=== PATIENT | female | born 1965 | race Caucasian/White ===

== ENCOUNTER 2017-05-06 10:00 | Outpatient (RCR) | payer BC, SELFPAY ==
--- NOTE | 2017-04-05 09:59 | HP.PTEVAL ---
Patient's Visit Information JUNIOR CONTE is a 52 year old F referred to Physical Therapy by Adan GRAHAM with a diagnosis of Trap Strain and Neuritis. Date of Evaluation: 04/05/17 Physical Therapist: Brooklyn Goins - Visit Plan Frequency: 2x /Week Duration: 4 Weeks Plan: Focus on posture and modalities - Subjective Subjective: Patient reports a week before new years the left arm started to ache- not able to stop the ache. Went to the MD who gave her exercises which made them worse. The pain is not as severe. When she uses the arm it goes numb- now the first finger is numb all the time. He pressed and she could feel it in the exact spot. So he sent her to therapy. Her symptoms now- arm still aches and is unable to sleep on the left side. Eases: pain medication, putting her hand behind her back, heating pad. Numbness is in the first finger but when she is more active (typing) the thumb and tingling in the hand. 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 Agg: computer, activity. No pain in the shoulder or neck area. History of neck problems- chronic stiff neck- went to a massage therapist who was able to work it out and she has not had the problems since. She also saw a chiropractor. Took x-rays who thought she had a bad curve of the spine. Does not have recent x-rays of the neck. No injections or medications prescribed for the neck. no symptoms on the right side. Right hand dominate. Sleeping: side- likes to sleep on her back but is unable to breathe so she moves to the other side. She is signed up from the [employer] program and plans to start. PMHx: prediabetic, GERD. Meds: Pantoprazole, Tramadol as needed, Naproxen, Progesterone. - Objective Posture: FH, RS, Increased kyphosis- can not correct even with verbal cueing. Palpation: significant tightness throughout upper trap, cervical paraspinals and medial border of the scapula. ROM: WNL in all planes. Strength: Cervical: 4/5 isometric, Shoulder: 4+/5, Scap: fair minus, Elbow: 5/5, Wrist: 4/5, Banking Teacher: Left: 60,65,60 Right: 80,85,70. Special Test: cervical distraction: positive - Goals Goal 1:: Patient will be I with HEP and progression Goal Time Frame: 4-6 Weeks Goal 2:: Patient will maintain proper posture t/o tx session to demo increased scap s/s Goal Time Frame: 4-6 Weeks Goal 3:: Patient will report no N/T for 1 week Goal Time Frame: 4-6 Weeks - Rehabilitation Potential Physical Therapy Diagnosis: Patient presents with hypomobility- she has poor posture leading to increased pain and numbness/tingling Rehabilitation Potential: Fair - Anticipated Interventions Patient/Client Instruction: Educate patient on: Benefits of Fitness Program For the Purpose of:: To improve performance and independence with ADL's Therapeutic Exercise to Include: Strength training, Endurance training, Body mechanics, Postural training, Scapular Strength/Stabilization For the Purpose of:: To improve muscle performance and motor function TENS: Yes Cryotherapy (ice pack, ice massage): Yes Thermo therapy (hot pack): Yes Ultrasound (thermal/non thermal): Yes For the Purpose of:: To decrease pain Thank you for the opportunity to evaluate your patient. For Medicare and Medicare HMO plans, please review the plan of care and approve it. It will need to be FAXED BACK to us at [phone] for Medicare purposes. Please let me know if there are questions or concerns regarding this plan of care. Physician Signature: Date:
--- NOTE | 2017-05-06 10:31 | HP.PTDCSUM_ITS ---
HP - PT D/C Summary It has been my pleasure to treat JUNIOR CONTE under orders from DR.CRANNE Shilpa for the diagnosis of Trap Strain and Neuritis for a total of 6 visit(s). Discharge Date: Please see the following information for a summary of their discharge status. - Subjective Subjective: Patient reports that she is getting better. She has no pain down the arm and the N/T is completely gone. She feels that she will always have to be aware of her posture. - Overall Improvement % Improvement: 90 - Objective Objective/Function: Posture: good throughout. ROM: WNL in all planes. Strength : Shoulder: 5/5 throughout Scap: fair plus - Goals Goal 1:: Patient will be I with HEP and progression Goal Progress: Goal Met Goal 2:: Patient will maintain proper posture t/o tx session to demo increased scap s/s Goal Progress: Goal Met Goal 3:: Patient will report no N/T for 1 week Goal Progress: Goal Met - Plan Plan: Discharge to HEP - D/C Information If there are questions or concerns regarding this patient's physical therapy, please feel free to call me at [phone]. Thank you for the referral of this patient. Sincerely, Brooklyn Goins
== END 2017-05-06 19:00 | disposition home or self-care (01) ==
LOC: PT 10:00
PROVIDERS: Family Provider Family Medicine; PCP Family Medicine; Visit Provider Family Medicine
DX: S46.812D Strain of other muscles, fascia and tendons at shoulder and upper arm level, left arm, subsequent encounter (principal); G56.30 Lesion of radial nerve, unspecified upper limb
CPT/HCPCS: 97012; 97035; 97110; 97161; 97530

== ENCOUNTER 2017-05-14 16:30 | Outpatient (RCR) | payer BC, SELFPAY | END 2017-05-25 23:59 | LOC: NS 16:30 | PROVIDERS: Family Provider Family Medicine; PCP Family Medicine; Visit Provider Family Medicine | DX: E66.01 Morbid (severe) obesity due to excess calories (principal); Z68.43 Body mass index [BMI] 50.0-59.9, adult; Z71.3 Dietary counseling and surveillance | CPT/HCPCS: 97802; 97803 ==

== ENCOUNTER 2017-06-19 13:00 | Outpatient (RCR) | payer BC, SELFPAY | END 2017-06-24 23:59 | LOC: NS 13:00 | PROVIDERS: Family Provider Family Medicine; PCP Family Medicine; Visit Provider Family Medicine | DX: E66.01 Morbid (severe) obesity due to excess calories (principal); Z68.43 Body mass index [BMI] 50.0-59.9, adult; Z71.3 Dietary counseling and surveillance | CPT/HCPCS: 97803 ==

== ENCOUNTER 2017-06-24 07:39 | Day surgery (SDC) | payer BC, SELFPAY ==
[2017-06-24] VITALS (10 sets, daily range): BP systolic 81–138; BP diastolic 48–81; PULSE 62–88; RESP 16–18; TEMP 36.3–36.9; O2SAT 97–100; BMI 55.3
[2017-06-24] MEDS: Cefazolin 2 GM in 0.9% Normal Saline 100 ML IV (09:25)
[2017-06-24] MEDS: Bupiv/Epi 0.5% Mpf 30 ML Vial (09:45)
--- NOTE | 2017-06-24 09:59 | PCM.DC.ORTHO ---
Discharge Diet: No Restrictions Discharge Activity: May Not Drive May shower in (days): 3 Ice area for (Minutes): 20 - Ice area for 20 minutes each hour while awake Weight Bearing Status: Weight bearing as tolerated Keep extremity elevated above heart level: Operative Extremity Call your doctor if your incision/area has: Continuous Slow Oozing, Sudden Increased Bleeding, Increased Pain/ Swelling, Increased Redness, Foul Smelling Discharge Call your doctor if you observe: Fever of 101 or Higher, Coldness, Increased Pain, Numbness or Tingling, Change in Color Change Dressing in (Days):: 3 Remove Dressing in (days):: 3 Cleanse incision/area with: Soap & Water - after dressing removed Allergies/Adverse Reactions: Allergies Tetanus Vaccines and Toxoid [Tetanus Vaccines & Toxoid] Allergy (Verified 06/18/17 14:50) Rash codeine Adverse Reaction (Verified 06/18/17 14:50) Other HEART RACING Medications to take at Discharge Magnesium 250 mg PO DAILY 02/06/17 Multivitamin [Daily Multiple Vitamin] 1 each PO DAILY 02/06/17 Transfactor 1 tab PO DAILY 02/06/17 traMADol [Ultram (G)] 25 mg PO Q6H PRN PRN 02/06/17 Progesterone,Micronized [Prometrium] 400 mg PO QHS #60 cap 02/08/17 Pantoprazole Sodium [Protonix] 40 mg PO DAILY #30 tab 02/12/17 Naproxen [Naprosyn] 500 mg PO DAILY PRN PRN 06/18/17 Hydrocodone Bitart/Apap 5-325 [[place] 5/325] 1 - 2 tablet PO Q6H PRN PRN 7 Days #40 tablet 06/24/17 The following prescriptions were given: Hydrocodone Bitart/Apap 5-325 [[place] 5/325] 1 - 2 tablet PO Q6H PRN PRN 7 Days #40 tablet PRN Reason: Mild-Moderate (pain scale 1-5) Please Follow Up With: Jef Bloom, DO When: as scheduled
--- NOTE | 2017-06-24 10:02 | DCINST_ITS ---
Discharge Diet: No Restrictions Discharge Activity: May Not Drive May shower in (days): 3 Ice area for (Minutes): 20 - Ice area for 20 minutes each hour while awake Weight Bearing Status: Weight bearing as tolerated Keep extremity elevated above heart level: Operative Extremity Call your doctor if your incision/area has: Continuous Slow Oozing, Sudden Increased Bleeding, Increased Pain/ Swelling, Increased Redness, Foul Smelling Discharge Call your doctor if you observe: Fever of 101 or Higher, Coldness, Increased Pain, Numbness or Tingling, Change in Color Change Dressing in (Days):: 3 Remove Dressing in (days):: 3 Cleanse incision/area with: Soap & Water - after dressing removed Allergies/Adverse Reactions: Allergies Tetanus Vaccines and Toxoid [Tetanus Vaccines & Toxoid] Allergy (Verified 14:50) Rash codeine Adverse Reaction (Verified 06/18/17 14:50) Other HEART RACING Medications to take at Discharge Magnesium 250 mg PO DAILY 02/06/17 Multivitamin [Daily Multiple Vitamin] 1 each PO DAILY 02/06/17 Transfactor 1 tab PO DAILY 02/06/17 traMADol [Ultram (G)] 25 mg PO Q6H PRN PRN 02/06/17 Progesterone,Micronized [Prometrium] 400 mg PO QHS #60 cap 02/08/17 Pantoprazole Sodium [Protonix] 40 mg PO DAILY #30 tab 02/12/17 Naproxen [Naprosyn] 500 mg PO DAILY PRN PRN 06/18/17 Hydrocodone Bitart/Apap 5-325 [Peck 5/325] 1 - 2 tablet PO Q6H PRN PRN 7 Days # 40 tablet 06/24/17 The following prescriptions were given: Hydrocodone Bitart/Apap 5-325 [Peck 5/325] 1 - 2 tablet PO Q6H PRN PRN 7 Days # 40 tablet PRN Reason: Mild-Moderate (pain scale 1-5) Please Follow Up With: Jef Bloom, DO When: as scheduled
--- NOTE | 2017-06-24 10:06 | OP.PCM_ITS ---
Report of Operation Date of Procedure: 06/24/17 Pre-Operative Diagnosis: Osteoarthritis right knee Post-Operative Diagnosis: Same with posterior horn medial meniscus tear Surgery/Procedure Performed:: Diagnostic and operative arthroscopy of the right knee with partial medial meniscectomy chondroplasty medial femoral condyle Description of Surgical Findings:: Grade 3 osteoarthritis medial femoral condyle, posterior horn medial meniscus tear, grade 2 patellofemoral joint Type of Anesthesia:: Spinal Anesthesiologist: Freeman Sánchez Estimated Blood Loss (mL): 5 Fluids Replaced: See anesthesia report Description of Procedure: Indications: Patient has failed conservative measures and at this point has elected to undergo the above procedure. Procedure description: The patient was greeted in the preoperative area. The right knee was marked with surgical marker. Preoperative antibiotics were administered. The patient was then taken to the operating suite and placed in a supine position on operating room table. After adequate anesthesia was obtained and airway was secured a well-padded tourniquet was placed on patient' s affected extremity. Leg was then prepped and draped in usual sterile fashion. Surgical timeout was performed and confirmed with all present and surgery was commenced. Standard anteromedial anterolateral portals were made and a 30? arthroscope was then inserted into the knee. This revealed grade 2 changes in the undersurface of the patella. Patellar tracking is normal. I did perform chondroplasty of the undersurface of the patella. No loose bodies were noted in the medial or lateral gutters. Medial compartment was then entered which revealed grade 3 changes in the weightbearing surface of the medial femoral condyle. Abrasion chondroplasty was also performed here removing any unstable articular cartilage. Patient did have a complex large tear of the posterior horn of the medial meniscus. I did trim this removing approximately 75% of the posterior horn of medial meniscus with combination of meniscal biters as well as the shaver. This was trimmed and debrided to nice stable meniscal rim. At this point the intercondylar notch was entered which revealed normal intact ACL. Lateral compartment was then entered which revealed pristine articular cartilage and normal lateral meniscus. At this point all instruments were removed. Arthroscopic portals were closed in a standard fashion. 30 cc of 0.5% Marcaine was then injected into the knee. Well-padded nonadherent dressing was applied and secured with an Lon wrap. Tourniquet was deflated and patient was taken to the recovery room in stable condition. - Admit VTE Documentation VTE Present on Admission: No VTE Mechan Device Prophylaxis: SCD's VTE Pharm Prophylaxis ordered?: Yes
[2017-06-24] MEDS: Ketorolac 30 MG/ML Syringe IV (10:39)
== END 2017-06-24 15:14 | disposition home or self-care (01) ==
LOC: SDC 07:40 → AC 07:55
PROVIDERS: Family Provider Family Medicine; PCP Family Medicine; Visit Provider Orthopaedic Surgery
PROC: (CPT 29870; principal; 2017-06-24 09:00)
DX: M17.11 Unilateral primary osteoarthritis, right knee (principal); S83.241A Other tear of medial meniscus, current injury, right knee, initial encounter; X58.XXXA Exposure to other specified factors, initial encounter; E66.9 Obesity, unspecified; Z68.43 Body mass index [BMI] 50.0-59.9, adult; F41.9 Anxiety disorder, unspecified; R73.03 Prediabetes; K21.9 Gastro-esophageal reflux disease without esophagitis; Z79.899 Other long term (current) drug therapy
CPT/HCPCS: 01400; 29881; J7120

== ENCOUNTER → 2017-07-05 14:36 | Outpatient (CLI) | payer BC, SELFPAY ==
[2017-07-05 16:09] LABS: Estradiol 125.8 pg/mL
[2017-07-05 16:18] LABS: Progesterone Level 15.72 ng/mL (See Comment)
[2017-07-05 16:48] LABS: Hemoglobin A1c 5.9 % (4.2-6.3)
== END ==
PROVIDERS: Visit Provider Obstetrics & Gynecology
DX: N92.4 Excessive bleeding in the premenopausal period (principal); E66.01 Morbid (severe) obesity due to excess calories; N93.8 Other specified abnormal uterine and vaginal bleeding
CPT/HCPCS: 36415; 82670; 83036; 84144

== ENCOUNTER → 2017-07-17 15:16 | Outpatient (CLI) | payer BC, SELFPAY ==
--- NOTE | 2017-07-17 15:20 | US_ITS ---
STUDY: ULTRASOUND TRANSVAGINAL CLINICAL: Female, 52 years old. AUB TECHNIQUE: Transvaginal COMPARISON: 01/09/2017 FINDINGS: The uterus measures 10.2 x 5.2 x 5.4 cm. Normal uterine cervix. The endometrium measures 10 mm in thickness, and is normal in echotexture. There is no demonstrated endometrial mass. There is no demonstrated myometrial mass. Normal appearance of the cervix. The right ovary measures 2.1 x 2.2 x 1.4 cm. There is no right ovarian cyst or ovarian mass. There is no visualized right adnexal mass or complex lesion. There is normal arterial and normal venous vascularity. The left ovary is not well seen. Bilaterally there is no adnexal mass or suspicious cyst or adnexal free fluid. There is no fluid in the cul-de-sac. US/Transvaginal Non- IMPRESSION: No acute intrapelvic process is evident. Left ovary is not visible. Electronically Signed: Cl James, at 16:29 EDT Tel , Service support ,
== END ==
PROVIDERS: Family Provider Family Medicine; PCP Family Medicine; Visit Provider Obstetrics & Gynecology
DX: N93.8 Other specified abnormal uterine and vaginal bleeding (principal); N92.4 Excessive bleeding in the premenopausal period
CPT/HCPCS: 76830; 93976

== ENCOUNTER 2017-07-23 16:30 | Outpatient (RCR) | payer BC, SELFPAY ==
--- NOTE | 2017-07-01 09:43 | HP.PTEVAL_ITS ---
Patient's Visit Information JUNIOR CONTE is a 52 year old F referred to Physical Therapy by Jef Bloom DO with a diagnosis of Right Knee Scope. Date of Evaluation: 07/01/17 Physical Therapist: Brooklyn Goins - Visit Plan Frequency: 2x /Week Duration: 3 Weeks Plan: Focus on LE and core s/s with functional mobility- Knee Scope 06/25/17 - Subjective Subjective: Patient reports that she has a knee scope 06/25- felt really good and then the block wore off and she has been in a lot of pain. Has not had to take pain meds for the last 2 days. Pain is located in the right knee- Mostly dull and achy. She has been up and moving. Worst: 5/10 Agg: walking on it a lot Eases: ice, elevation, rest. Best: 0/10. No radiating pain- No N/T. Sleep: a little bit disturbed- rolling back and forth. Work: [employer]. Has been doing [employer]- coming 2x a week to and doing a routine. PMHx: none Meds: Progesterone - Objective Posture: FH, RS, Increased kyphosis- pt is overweight. Gait: antalgic- decreased stance time on the right LE- poor heel/toe pattern. Stairs:asc/desc 8 non recip with 2 HR. HR/TR: able but reports discomfort with TR. SLS: 2 sec then LOB and uses UE to right herself- reports afraid of pain. Palpation: tender along medial joint line. Observation: 2 sutures still intact- no s/s of infection. ROM: 10-95 (equal to non surgical LE). Strength: ankle: 5/5, Knee: 4+/5, Hip: 4+/5 Core: poor. Flex: HS: mod, Gastroc: mod - Goals Goal 1:: Patient will be I with HEP and progression Goal Time Frame: 4-6 Weeks Goal 2:: Patient will ambulate >300 feet with a normalized gait pattern Goal Time Frame: 4-6 Weeks Goal 3:: Patient will asc/desc 8 stairs recip with 1 HR Goal Time Frame: 4-6 Weeks Goal 4:: Patient will report 0/10 pain for 1 week to ease ADL's and return to HEP in gym Goal Time Frame: 4-6 Weeks - Rehabilitation Potential Physical Therapy Diagnosis: Patient presents with hypomobility s/p right knee scope- she has decreased strength and muscular endurance leading to abnormal gait pattern and increased pain Rehabilitation Potential: Good - Anticipated Interventions Patient/Client Instruction: Educate patient on: Benefits of Fitness Program For the Purpose of:: To increase tolerance to activity/condition/position Therapeutic Exercise to Include: Strength training, Endurance training, Balance training, Agility training, Body mechanics, Postural training, Flexibilty training, Gait and locomotor training, Passive ROM, Active ROM, Dynamic Lumbar Stabilization For the Purpose of:: To improve muscle performance and motor function TENS: Yes Cryotherapy (ice pack, ice massage): Yes Thermo therapy (hot pack): Yes Ultrasound (thermal/non thermal): Yes For the Purpose of:: To decrease pain Thank you for the opportunity to evaluate your patient. For Medicare and Medicare HMO plans, please review the plan of care and approve it. It will need to be FAXED BACK to us at [phone] for Medicare purposes. Please let me know if there are questions or concerns regarding this plan of care. Physician Signature: Date:
--- NOTE | 2017-07-23 16:58 | HP.PTDCSUM_ITS ---
HP - PT D/C Summary It has been my pleasure to treat JUNIOR CONTE under orders from Jef Bloom DO, for the diagnosis of Right Knee Scope for a total of 4 visit(s). Discharge Date: Please see the following information for a summary of their discharge status. - Subjective Subjective: Some days she is better than others- Pain with walking is 5/10- Does feel like its getting better. - Pain right knee Pain Intensity (Out of 10): 4 - Objective Objective/Function: Posture: FH, RS, Increased kyphosis- pt is overweight. Gait : WFL. Stairs:asc/desc 8 recip with 2 HR. HR/TR: able SLS: 15 sec then LOB Palpation: tender along medial joint line. ROM: 10-95 (equal to non surgical LE ). Strength: ankle: 5/5, Knee: 5/5, Hip: 5/5 Core: poor. Flex: HS: mod, Gastroc: mod - Goals Goal 1:: Patient will be I with HEP and progression Goal Progress: Goal Met Goal 2:: Patient will ambulate >300 feet with a normalized gait pattern Goal Progress: Goal Met Goal 3:: Patient will asc/desc 8 stairs recip with 1 HR Goal Progress: Goal Met Goal 4:: Patient will report 0/10 pain for 1 week to ease ADL's and return to HEP in gym Goal Progress: Progressing - Plan Plan: Discharge to HEP - D/C Information If there are questions or concerns regarding this patient's physical therapy, please feel free to call me at [phone]. Thank you for the referral of this patient. Sincerely, Brooklyn Goins
== END 2017-07-23 19:00 | disposition home or self-care (01) ==
LOC: PT 16:30
PROVIDERS: Family Provider Family Medicine; PCP Family Medicine; Visit Provider Orthopaedic Surgery
DX: M17.11 Unilateral primary osteoarthritis, right knee (principal)
CPT/HCPCS: 97110; 97161; 97530

== ENCOUNTER 2017-09-12 08:30 | Outpatient (RCR) | payer BC, SELFPAY | END 2017-09-24 23:59 | LOC: NS 08:30 | PROVIDERS: Family Provider Family Medicine; PCP Family Medicine; Visit Provider Family Medicine | DX: E66.01 Morbid (severe) obesity due to excess calories (principal); Z68.43 Body mass index [BMI] 50.0-59.9, adult; Z71.3 Dietary counseling and surveillance | CPT/HCPCS: 97803 ==

== ENCOUNTER → 2017-09-18 11:51 | Outpatient (CLI) | payer BC, SELFPAY ==
--- NOTE | 2017-09-18 11:58 | RAD_ITS ---
STUDY: X-RAY CHEST REASON FOR EXAM: Female, 52 years old. Preop for hysterectomy TECHNIQUE: PA and lateral views of the chest. COMPARISON: 2014 FINDINGS: The lungs are clear and expanded. There is no demonstrated pleural abnormality. Normal size heart. Normal mediastinum and carri. Normal visualized pulmonary arteries. Normal visualized aortic arch and descending thoracic aorta. There are diffuse degenerative changes of the visualized thoracic spine. Normal visualized ribs, clavicles, and shoulders. There is no demonstrated abnormality of the visualized soft tissue structures of the upper abdomen. RAD/Chest PA and Lateral IMPRESSION: No acute pulmonary process Electronically Signed: Mike May MD at 12:10 EDT , Service support ,
[2017-09-18 14:24] LABS: Absolute Lymphocyte Count 2.46 X10^3/ul (0.83-4.51); Basophil# 0.03 X10^3/uL; Basophil% 0.4 % (0-1); Eosinophil# 0.13 X10^3/uL; Eosinophils% 1.6 % (0-5); Hematocrit 38.6 % (37-47); Hemoglobin 12.8 g/dl (12.0-15.0); International Normalized Ratio 1.1; Lymphocyte # 2.46 X10^3/ul (4.0); Lymphocyte % 30.1 % (19-41); Mean Corp Hgb Conc 33.2 g/gl (32-36); Mean Corpuscular Hgb 31.5 pg (27.0-32.0); Mean Corpuscular Volume 95.1 fL (81-99); Mean Platelet Vol. 10.8 fl (6.2-12.0); Monocyte# 0.56 X10^3/uL; Monocyte% 6.9 % (0-10); Neutrophil # 4.97 X10^3/uL (2.7-7.7); Neutrophil % 60.9 % (47-70); Platelet Count 306 K/mm3 (150-450); Prothrombin Time (Protime)PT. 13.7 SECONDS (11.7-14.9); RBC Distribution Width CV 12.9 % (11.6-14.6); RBC Distribution Width SD 43.8 fl (35.1-43.9); Red Blood Count 4.06 M/mm3 (4.2-5.4); White Blood Count 8.2 K/mm3 (4.4-11.0)
[2017-09-18 14:31] LABS: POSITIVE COUNT NO; POSITIVE DIFFERENTIAL NO; POSITIVE MORPHOLOGY NO
[2017-09-18 14:38] LABS: Anion Gap 9 (5-15); BUN 18 mg/dL (7-18); Calcium,Total 9.2 mg/dL (8.5-10.1); Chloride 106 mmol/L (98-107); Creatinine, Serum 0.78 mg/dL (0.55-1.02); EST Glomerular Filtration Rate 82 mL/min (>60); Est Glom Filt Rate - Afr Amer 100 mL/min (>60); Glucose 103 mg/dL (74-106); Sodium Level 140 mmol/L (136-145)
== END ==
PROVIDERS: Family Provider Family Medicine; PCP Family Medicine; Visit Provider Family Medicine
DX: Z01.818 Encounter for other preprocedural examination (principal)
CPT/HCPCS: 36415; 71046; 80048; 85025; 85610; 85730

== ENCOUNTER → 2017-09-24 10:11 | Outpatient (CLI) | payer BC, SELFPAY ==
--- NOTE | 2017-09-24 10:12 | CT_ITS ---
STUDY: CT ABDOMEN AND PELVIS WITH CONTRAST REASON FOR EXAM: Female, 52 years old. Incisional hernia RADIATION DOSAGE (If Supplied By Facility): CTDIvol = ( 33.7 ) mGy, DLP = ( 1232.71 ) mGycm TECHNIQUE: Transaxial images were obtained from the dome of the diaphragm to the symphysis pubis without oral contrast. 100 ml of Isovue 300 contrast was administered. Sagittal and coronal images were reconstructed. Individualized dose optimization techniques were used for this CT. COMPARISON: None. FINDINGS: The visualized lung bases are unremarkable. The visualized portions of the heart are within normal limits. Normal liver. Calcific sludge is seen in the gravity dependent portion of the gallbladder. Normal spleen. Normal pancreas. Normal bilateral adrenal glands. Normal right kidney. Normal left kidney. There is a small hiatal hernia. Normal small intestine. Normal colon. There is non-visualization of the appendix. There are several small calcified atheromatous plaques of the abdominal aorta. Normal inferior vena cava. Normal retroperitoneum. The urinary bladder is nearly empty. The uterus and adnexal structures are unremarkable. There is a midline pelvic ventral hernia containing omental fat and several nondistended loops of large and small bowel. Bowel. There are diffuse degenerative changes of the visualized thoracolumbar spine. CT/Abdomen/Pelvis WITH Contrast IMPRESSION: 1. Midline pelvic ventral hernia containing omental fat and several nondistended loops of large and small bowel. 2. Calcific sludge is seen within the gallbladder. 3. Small hiatal hernia. 4. Diffuse degenerative changes of the visualized thoracolumbar spine. Electronically Signed: Kennedy Moss MD at 21:56 EDT , Service support ,
== END ==
PROVIDERS: Family Provider Family Medicine; PCP Family Medicine; Visit Provider Surgery
DX: K43.2 Incisional hernia without obstruction or gangrene (principal)
CPT/HCPCS: 74177; Q9967

== ENCOUNTER 2017-10-08 08:22 | Outpatient (RCR) | payer BC, SELFPAY | END 2017-10-25 23:59 | LOC: NS 08:22 | PROVIDERS: Family Provider Family Medicine; PCP Family Medicine; Visit Provider Family Medicine | DX: E66.01 Morbid (severe) obesity due to excess calories (principal); Z68.43 Body mass index [BMI] 50.0-59.9, adult; Z71.3 Dietary counseling and surveillance | CPT/HCPCS: 97803 ==

== ENCOUNTER 2017-10-15 18:32 | Inpatient (IN) | payer BC, SELFPAY ==
[2017-10-08 13:24] VITALS: BP 133/87; PULSE 83; RESP 16; TEMP 37; O2SAT 94; BMI 55.1
[2017-10-15] VITALS (9 sets, daily range): BP systolic 106–156; BP diastolic 59–85; PULSE 69–93; RESP 16–18; TEMP 36.3–36.6; O2SAT 93–97; BMI 54.3; BMI 55.8
[2017-10-15] MEDS: Heparin Injection (Vial) 5,000 UNIT/ML VIAL 5000 UNIT SC ×2 (07:00→21:27)
[2017-10-15 11:01] LABS: Internal QC Validated? YES +Cl - CLEAR BKGD; Pregnancy, Urine Negative Negative
[2017-10-15 11:25] LABS: Anion Gap 10 (5-15); BUN 13 mg/dL (7-18); BUN/Creat Ratio 15.3 RATIO (10-20); Calcium,Total 8.9 mg/dL (8.5-10.1); Chloride 108 mmol/L (98-107); Creatinine, Serum 0.85 mg/dL (0.55-1.02); EST Glomerular Filtration Rate 75 mL/min (>60); Est Glom Filt Rate - Afr Amer 91 mL/min (>60); Estimated Creatinine Clearance 64.77 ml/min; Glucose 126 mg/dL (74-106); Potassium 4.2 mmol/L (3.5-5.1); Sodium Level 139 mmol/L (136-145)
--- NOTE | 2017-10-15 12:00 | HYST_PTH ---
PATIENT: JUNIOR CONTE LOC: [facility] U#:[id number] AGE/SX: 52/F ROOM: [facility]315 RE10/15/[address]: Dr. Murphy Okeefe MD : 1965 BED: 1 DIS: 10/18/2017 SPEC #: [id number] RECD: 10/16/17 08:15 STATUS: BRYAN MCMAHONJoseph #: [id number] CLAY: 10/15/17 12:[address]: Felicity Bryan DEPT: SURGICAL PATHOLOGY RECD BY: Hernandez Gonzales ENTERED: 10/16/17 10:29 SP TYPE: HYSTERECT OTHR DR: MD Dr. Tonny Kumar DO Tissues: Uterus, NOS Procedures: Surgery Specimen Level V HEADER OPERATION: Lap robotic hysterectomy salpingectomy, poss. oophorectomy PRE-OP DIAGNOSIS: Abnormal uterine and vaginal bleeding TISSUE SUBMITTED: Uterus, cervix, bilateral fallopian tubes and ovaries MICROSCOPIC DIAGNOSIS Uterus, hysterectomy: Cervix ? nabothian cysts, squamous metaplasia and mild chronic inflammation. Endometrium ? weakly proliferative to inactive endometrium. Myometrium ? leiomyomas and focal adenomyosis. Right ovary ? hemorrhagic corpus luteal cysts and corpora albicantia. Right fallopian tube - no pathologic change. Left ovary ? benign epithelial cysts and corpora albicantia. Left fallopian tube - no pathologic change. AM:rere 10/17/17 MICROSCOPIC DESCRIPTION Slides are reviewed. GROSS DESCRIPTION Received in fixative is one container labeled with the patient's name and designated uterus. The specimen consists of a uterus with attached cervix and attached right and left fallopian tubes and ovaries. The fallopian tubes are dyschronous in their mid portion consistent with previous tubal ligation. The uterus with cervix measures 11 x 7.8 x 5.2 cm and weighs 174 gm. The ectocervix is unremarkable and the cervical os is oval in contour. The endocervical canal measures 3 cm in length and is grossly unremarkable. The triangular endometrial cavity measures 5 x 3.5 cm. The endometrium is reddish-schmitt, velvety and glistening and measures up to 0.2 cm in thickness. The myometrium measures 2.5 cm in average thickness and is distorted by multiple spherical rubbery nodules consistent with leiomyomas. The nodules are submucosal, intramural and subserosal in location. On cut sections, the nodules reveal whorled appearances without areas of cyst formation or necrosis. The nodules range in size from 0.2 to 1.6 cm in greatest dimension. The right ovary is pink-schmitt and has a smooth, glistening external surface and measures 3.5 x 2.5 x 2 cm. Serial sections reveal multiple cysts containing clear to bloody fluid. The cysts range in size from 0.5 to 1.2 cm in greatest dimension. The right fallopian tube measures 6 cm in length and 0.7 cm in diameter. The left ovary is similar in appearance and measures 3 x 2.6 x 1.8 cm. Serial sections reveal multiple cysts ranging in size from 0.2 to 0.5 cm and containing bloody fluid. The fallopian tube is similar in appearance to the right tube and measures 5 cm in length and 0.6 cm in average diameter. The fimbriated ends on both fallopian tubes are grossly unremarkable. Retail Banker sections are submitted in ten cassettes as follows: 1 - anterior cervix, 2 - posterior cervix, 3 & 4 - anterior uterine wall, 5 & 6 - posterior uterine wall, 7 & 8 ? myometrial nodules, 9 ? right fallopian tube and ovary, 10 ? left fallopian tube and ovary. / AM:rere 10/16/17 TC:1 CPT: 83918
--- NOTE | 2017-10-15 15:09 | PCM.OPRPT ---
Problem List (1) Injury of large intestine Status: Acute Qualifiers: Encounter type: initial encounter Qualified Code(s): S36.509A - Unspecified injury of unspecified part of colon, initial encounter Report of Operation Date of Procedure: 10/15/17 Pre-Operative Diagnosis: Possible trocar injury to the bowel Post-Operative Diagnosis: Confirmed singlewall transverse colon trocar injury Surgery/Procedure Performed:: Mini laparotomy with exploration and transverse colon enterostomy repair Description of Surgical Findings:: I was asked by Dr. Felicity Bryan to present to the operating room to assist her with a possible trocar injury to the bowel. Soon after my arrival I requested that Dr. Javier guillory present as well to assist and then further assist her with general surgery robotic capability which I do not have. The patient has ventral hernias. A large trocar been placed superior to the umbilicus and upon placement of the secondary trocar there was concern that the trocar was then an area of adhesions of omentum and suspected bowel. For better visualization I placed an additional 5 mm port in the left midabdomen. Using a 30? following her scope it became apparent that the central trocar was indeed within bowel suspected to be transverse colon. There were multiple adhesions of omentum down the midline and a complicated hernia sac. At this point I made the decision to extend the incision at the major trocar site and perform a direct exploration with repair. I widened that incision transversely used electrocautery to dissect down through the substance tissue. The trocar was kept in place throughout this dissection. Unfortunately there were multiple adhesions of omentum that were densely adherent actually within the complicated hernia sac that is in the infraumbilical midline position. With a combination of sharp and electrocautery and blunt dissection however I was able to free up enough of the structures present to identify that the trocar was indeed in the transverse colon. The patient had had a mechanical bowel prep. We dissected free the greater omentum off the anterior surface of the colon. We identified the defect. Laparotomy packs were placed around. The trocar was removed and the enterotomy was slightly lengthened inspection of the entire back wall of the colon from inside of the bowel was performed and there was no injury. It was noted that this was not ablated trocar but an unrelated trocar. I felt that this was a singlewall injury. The bowel appeared to be otherwise healthy. I approximated the defect transversely using a 2 layer approach with a running 3-0 chromic and then a running Lembert style 3-0 silk. The bowel appeared to be widely patent and appear to be nicely vascularized. That was then placed back within the abdomen. At this point Dr. Thornton initiated fascial repair and take over of the general surgery component with laparoscopic/robotic visualization to better assist Dr. Bryan. I excused myself from the case at this moment. Specimens none. Drains none. Blood loss minimal. Kory Hackett M.D., F.A.C.S. advanced analytics associate: Felicity Bryan advanced analytics associate: Adi Thornton Type of Anesthesia:: General Anesthesiologist: Angela Rick
[2017-10-15] MEDS: Piperacil/Tazobactam 3.375 GM/50 ML ML IV ×2 (16:21→21:28)
--- NOTE | 2017-10-15 18:46 | PCM.OPRPT ---
Report of Operation Date of Procedure: 10/15/17 Pre-Operative Diagnosis: Possible trocar injury to the bowel Post-Operative Diagnosis: Confirmed singlewall transverse colon trocar injury Surgery/Procedure Performed:: Mini laparotomy with exploration and transverse colon enterostomy repair grease machine worker: Felicity Bryan grease machine worker: Adi Thornton Type of Anesthesia:: General Anesthesiologist: Angela Rick
--- NOTE | 2017-10-15 18:47 | PCM.OPRPT ---
Report of Operation Date of Procedure: 10/15/17 Pre-Operative Diagnosis: Possible trocar injury to the bowel. irregular menstrual cycles and obesity Post-Operative Diagnosis: Confirmed singlewall transverse colon trocar injury. irregular menstrual cycles, obesity, adhesions vesico-uterine peritoneum Surgery/Procedure Performed:: Mini laparotomy with exploration and transverse colon enterostomy repair. Robotic assisted hysterectomy with bilateral salpingo-oophorectomy. ventral hernia reapproximation Description of Surgical Findings:: Uterus was sounded to approximately 10 cm in an anteflexed position. Bilateral adnexa noted to be within normal limits on exam under anesthesia. Encountered a large ventral hernia upon insufflation of the abdomen. Placement of the camera into the camera port in the supraumbilical region suspicious for a bowel injury. Left upper quadrant/Parks's 0.5 mm disposable trocar placement and camera revealed a large amount of scar tissue and adhesions of the bowel omentum to the abdominal anterior wall along with ventral hernias along the abdominal wall. Uterus appeared to be within normal limits along with bilateral adnexa and ovaries. Scar tissue was noted at the vesicouterine peritoneum in relationship to the prior light industrial supervisor: Felicity Bryan light industrial supervisor: Adi Thornton Type of Anesthesia:: General Anesthesiologist: Angela Rick Special Medications: Cefotetan, Zosyn, Heparin Specimen's removed: uterus, cervix, bilateral ovaries, bilateral fallopian tubes Drains: none Estimated Blood Loss (mL): 150cc Fluids Replaced: Lactated ringers Grafts/Implants Used: none - Complications Large bowel injury with repair. - Admit VTE Documentation VTE Present on Admission: No VTE Mechan Device Prophylaxis: SCD's VTE Pharm Prophylaxis ordered?: Yes
--- NOTE | 2017-10-15 18:51 | OP.PCM_ITS ---
Report of Operation Date of Procedure: 10/15/17 Pre-Operative Diagnosis: Possible trocar injury to the bowel. irregular menstrual cycles and obesity Post-Operative Diagnosis: Confirmed singlewall transverse colon trocar injury. irregular menstrual cycles, obesity, adhesions vesico-uterine peritoneum Surgery/Procedure Performed:: Mini laparotomy with exploration and transverse colon enterostomy repair. Robotic assisted hysterectomy with bilateral salpingo -oophorectomy. ventral hernia reapproximation Description of Surgical Findings:: Uterus was sounded to approximately 10 cm in an anteflexed position. Bilateral adnexa noted to be within normal limits on exam under anesthesia. Encountered a large ventral hernia upon insufflation of the abdomen. Placement of the camera into the camera port in the supraumbilical region suspicious for a bowel injury. Left upper quadrant/Parks's 0.5 mm disposable trocar placement and camera revealed a large amount of scar tissue and adhesions of the bowel omentum to the abdominal anterior wall along with ventral hernias along the abdominal wall. Uterus appeared to be within normal limits along with bilateral adnexa and ovaries. Scar tissue was noted at the vesicouterine peritoneum in relationship to the prior market research executive: Felicity Bryan market research executive: Adi Thornton Type of Anesthesia:: General Anesthesiologist: Angela Rick Special Medications: Cefotetan, Zosyn, Heparin Specimen's removed: uterus, cervix, bilateral ovaries, bilateral fallopian tubes Drains: none Estimated Blood Loss (mL): 150cc Fluids Replaced: Lactated ringers Grafts/Implants Used: none - Complications Large bowel injury with repair. - Admit VTE Documentation VTE Present on Admission: No VTE Mechan Device Prophylaxis: SCD's VTE Pharm Prophylaxis ordered?: Yes
--- NOTE | 2017-10-15 19:50 | PCM.CONS.GEN ---
Reason for Consult Date of Consultation: 10/15/17 Reason for Consultation: Consult by Dr. Menezes for postoperative medical management History of Present Illness: The patient is a 52 year old F who is undergoing a hysterectomy and then there was a bowel injury which required the assistance of surgery for bowel repair. Patient had confirmed a single wall transverse went mini laparotomy with exploration and transverse colon enterostomy repair. Patient seen postoperatively and having some abdominal discomfort but otherwise no significant complaints at this time. [] Past Medical History Medical History: Medical History (Last Reviewed 10/15/17 @ 19:53 by Tonny Ley DO) Endometrial thickening on ultra sound (Acute) R93.8 Irregular menstrual bleeding (Acute) N92.6 GERD (gastroesophageal reflux disease) K21.9 H/O flexible sigmoidoscopy Z98.890 Obesity E66.9 Allergies Tetanus Vaccines and Toxoid [Tetanus Vaccines & Toxoid] Allergy (Verified 10/08/17 13:13) Rash codeine Adverse Reaction (Verified 10/08/17 13:13) Other HEART RACING Home Medications: Ambulatory Orders Medication Instructions Recorded Magnesium 250 mg PO DAILY 02/06/17 Multivitamin [Daily Multiple 1 ea PO DAILY 02/06/17 Vitamin] Progesterone,Micronized 400 mg PO QHS #60 cap 02/08/17 [Prometrium] Surgical History: Surgical History (Last Reviewed 10/15/17 @ 19:53 by Tonny Ley DO) S/P carpal tunnel release Z98.890 S/P section Z98.891 S/P dilation and curettage Z98.890 S/P hernia repair Z98.890, Z87.19 S/P tubal ligation Z98.51 Smoking Status: Never smoker Tobacco Use: Non-smoker Alcohol: Occasional Drugs: None - *Family History Maternal Family History: Family History (Last Reviewed 10/15/17 @ 19:54 by Tonny Ley DO) Father Diabetes Heart disease Hypertension Cancer Mother Diabetes Hypertension DVT (deep venous thrombosis) Grandfather Colon cancer Review of Systems Constitutional: Denies: Anorexia, Chills, Fever, Night Sweats Eyes: Denies: Blurred vision, Double vision HEENT: Denies: Head Aches, Sinus Congestion, Sinus Drainage Cardiovascular: Reports: Chest Pain - None currently but has had chest pain in the past and states it has been worked up and has been unremarkable.. Denies: Palpitations Respiratory: Denies: Hemoptysis, Shortness of breath at rest Gastrointestinal: Reports: Abdominal Pain, Nausea Genitourinary: Denies: Dysuria Gynecological: Reports: Excessively long or heavy periods Musculoskeletal: Denies: Joint Pain, Joint Tenderness Skin: Denies: Rash, Wounds Neurological: Denies: Numbness, Tingling, Focal weakness Hematologic/ Lymphatic: Reports: Easy Bleeding. Denies: Easy Bruising, Hx of blood clot Comment: All review of systems are negative except as mentioned in the history of present illness and the other review of systems. Patient Problems: Active and Suspected Problems (Last Reviewed 09/26/17 @ 10:56 by Carlos Vazquez MD) Injury of large intestine (Acute) - Physical Exam General: Alert, Cooperative, No apparent distress, - - Groggy postoperatively HEENT: Atraumatic, Normocephalic Oral: Moist Mucosa, No Gingival or Mucosal Lesions/ Ulcerations Neck: No Nodes, Thyroid Normal Size and Texture Lungs: Clear to auscultation, No rhonchi, No wheeze, Diminished Cardiovascular: Regular rate, Regular Rhythm, Normal S1, Normal S2, No murmurs Abdomen: Soft, Hypoactive Bowel Sounds, Obese Extremities: No edema, No Calf Tenderness Skin: No rashes, No breakdown Psych/Mental Status: Appropriate, Flat Affect Vital Signs Temp Pulse Resp BP Pulse Ox 36.3 C L 73 16 119/66 95 10/15/17 19:03 10/15/17 19:03 10/15/17 19:03 10/15/17 19:03 10/15/17 19:03 Oxygen Flow Rate (L/min) 3 Oxygen Delivery Method Nasal Cannula Weight: 139.2 kg Body Mass Index (BMI) 54.3 Intake and Output for Last 24 Hours 10/13/17 10/14/17 10/15/17 23:59 23:59 23:59 Output Total 600 / 600 Balance -600 / -600 Laboratory Tests Past 24 Hrs 10/15/17 10/15/17 10/15/17 10:40 11:04 11:20 Sodium 139 Potassium 4.2 Chloride 108 H Carbon Dioxide 21.0 Anion Gap 10 BUN 13 Creatinine 0.85 Estim Creat Clear Calc 64.77 Est GFR (MDRD) Af Amer 91 Est GFR (MDRD) Non-Af 75 BUN/Creatinine Ratio 15.3 Glucose 126 H Calcium 8.9 Urine Test Negative Blood Type O POSITIVE Antibody Screen NEGATIVE Assessment/Plan All Active Problems (Last Reviewed 09/26/17 @ 10:56 by Carlos Vazquez MD) Injury of large intestine (Acute) Endometrial thickening on ultra sound (Acute) Irregular menstrual bleeding (Acute) 1. Hyperglycemia No known history of diabetes and Will check blood sugars Patient will be on a moderate dose sliding scale insulin 2. Status post transverse colon injury Status post mini laparotomy with enterostomy repair Per general surgery Started on empiric Zosyn 3. Status post hysterectomy Management per gynecology 4. DVT prophylaxis: SCDs Thank you for the consult. The hospitalist service will continue to follow during the course of the patient's hospitalization. Code Visit Inpatient E&M: 15030 Init Hosp L2
--- NOTE | 2017-10-15 21:24 | NURSING ---
Pt called out to MULTIPLE SLIDE OPERATOR and stated she felt like she was having a hard time breathing. MULTIPLE SLIDE OPERATOR states she check her heart rate and oxygen level and both were stable. MULTIPLE SLIDE OPERATOR also stated pt stated she felt better by the time the MULTIPLE SLIDE OPERATOR got back to the room. This RN in room now, pt states pain is just getting worse. Will medicate for pain at this time.
[2017-10-15] MEDS: Lactated Ringers 1,000 ML 125 ML IV (21:27)
[2017-10-15] MEDS: Metoclopramide 10 MG/2 ML Vial IV (21:28)
[2017-10-15] MEDS: Morphine 4 MG/ML Syringe IV (21:29)
[2017-10-16] MEDS: Morphine 4 MG/ML Syringe IV ×9 (00:05→22:42)
[2017-10-16 00:30] LABS: Bedside Glucose 154 mg/dL (70-110)
[2017-10-16 00:53] VITALS: BP 101/50; PULSE 70; RESP 16; TEMP 36.8; O2SAT 94
[2017-10-16 03:49] VITALS: BP 105/55; PULSE 85; RESP 18; TEMP 36.6; O2SAT 95
--- NOTE | 2017-10-16 05:45 | PCM.PN.SRG ---
Patient Problems: Active and Suspected Problems (Last Reviewed 10/15/17 @ 19:53 by Tonny Ley DO) Injury of large intestine (Acute) Subjective: Pt sore and dizzy but otherwise doing well - Physical Exam Lungs: Clear to auscultation Abdomen: Soft, Hypoactive Bowel Sounds, Distended, Tender Vital Signs Temp Pulse Resp BP Pulse Ox 98 F 85 18 105/55 L 95 10/16/17 03:49 10/16/17 03:49 10/16/17 03:49 10/16/17 03:49 10/16/17 03:49 Oxygen Flow Rate (L/min) 2 Oxygen Delivery Method Room Air Weight: 315 lb 7.704 oz Body Mass Index (BMI) 55.8 Intake and Output for Last 24 Hours 10/14/17 10/15/17 10/16/17 23:59 23:59 23:59 Intake Total 3700 / 3700 511.6 / 511.6 Output Total 750 / 750 650 / 650 Balance 2950 / 2950 -138.4 / -138.4 Laboratory Tests Past 24 Hrs 10/15/17 10/15/17 10/15/17 10:40 11:04 11:20 Sodium 139 Potassium 4.2 Chloride 108 H Carbon Dioxide 21.0 Anion Gap 10 BUN 13 Creatinine 0.85 Estim Creat Clear Calc 64.77 Est GFR (MDRD) Af Amer 91 Est GFR (MDRD) Non-Af 75 BUN/Creatinine Ratio 15.3 Glucose 126 H Calcium 8.9 Urine Test Negative Blood Type O POSITIVE Antibody Screen NEGATIVE POC Glucose 10/15/17 21:49 POC Glucose 154 H Medical Necessity - Tobacco Use Smoking Status: Never smoker Tobacco Use: Non-smoker Assessment/Plan All Active Problems (Last Reviewed 10/15/17 @ 19:53 by Tonny Ley DO) Injury of large intestine (Acute) Endometrial thickening on ultra sound (Acute) Irregular menstrual bleeding (Acute) Will allow sips clears Moderate IVF Vigorously encouraged mobilization
[2017-10-16] MEDS: Heparin Injection (Vial) 5,000 UNIT/ML VIAL 5000 UNIT SC ×3 (06:20→21:54)
[2017-10-16] MEDS: Metoclopramide 10 MG/2 ML Vial IV ×3 (06:21→21:54)
[2017-10-16] MEDS: Piperacil/Tazobactam 3.375 GM/50 ML ML IV ×3 (06:21→21:53)
[2017-10-16] MEDS: 0.9% NaCl Peripheral Flush Adult/Peds IV ×4 (06:22→16:53)
[2017-10-16 06:28] LABS: Hematocrit 34.9 % (37-47); Hemoglobin 11.5 g/dl (12.0-15.0); Mean Corpuscular Hgb 31.6 pg (27.0-32.0); Mean Corpuscular Volume 95.9 fL (81-99); Mean Platelet Vol. 10.7 fl (6.2-12.0); Platelet Count 271 K/mm3 (150-450); RBC Distribution Width CV 12.8 % (11.6-14.6); RBC Distribution Width SD 43.5 fl (35.1-43.9); Red Blood Count 3.64 M/mm3 (4.2-5.4); White Blood Count 11.8 K/mm3 (4.4-11.0)
[2017-10-16 06:30] LABS: Scan Indicated on CBC? Y/N NO
--- NOTE | 2017-10-16 06:33 | NURSING ---
Pt c/o dizziness, thought it may have been from Morphine but pt states has had dizziness majority of night. Scope patch removed from behind right ear and thrown in sharps container. Pt denies nausea.
[2017-10-16] MEDS: Insulin Lispro 100 UNIT/ML INSULN.PEN SQ ×2 (06:36→11:02)
[2017-10-16 06:45] LABS: Bedside Glucose 162 mg/dL (70-110)
[2017-10-16 06:51] LABS: Anion Gap 12 (5-15); BUN 14 mg/dL (7-18); BUN/Creat Ratio 13.9 RATIO (10-20); Calcium,Total 8.3 mg/dL (8.5-10.1); Chloride 106 mmol/L (98-107); Creatinine, Serum 1.01 mg/dL (0.55-1.02); EST Glomerular Filtration Rate 61 mL/min (>60); Est Glom Filt Rate - Afr Amer 74 mL/min (>60); Estimated Creatinine Clearance 54.51 ml/min; Glucose 155 mg/dL (74-106); Potassium 4.3 mmol/L (3.5-5.1); Sodium Level 141 mmol/L (136-145)
[2017-10-16 06:52] VITALS: O2SAT 95
--- NOTE | 2017-10-16 07:26 | PCM.PN.OB ---
Patient Problems: Active and Suspected Problems (Last Reviewed 10/15/17 @ 19:53 by Tonny Ley DO) Injury of large intestine (Acute) Subjective: Tolerating pain with morphine this am. No flatus. No nausea. No vomiting. Desires to ambulate. - Physical Exam General: Alert, Oriented x3, Cooperative, No apparent distress HEENT: Atraumatic, PERRLA Oral: Moist Mucosa Neck: Supple, No Nuchal Rigidity Lungs: Clear to auscultation, Normal air movement, No wheeze Cardiovascular: Regular rate, Regular Rhythm Abdomen: Soft, Non-Distended, Hypoactive Bowel Sounds Extremities: No edema, No Calf Tenderness Skin: No rashes Musculoskeletal: No Muscle Wasting Neurological: Cranial nerves II-XII grossly intact Psych/Mental Status: Normal Affect Vital Signs Temp Pulse Resp BP Pulse Ox 98 F 85 18 105/55 L 95 10/16/17 03:49 10/16/17 03:49 10/16/17 03:49 10/16/17 03:49 10/16/17 06:52 Oxygen Flow Rate (L/min) 2 Oxygen Delivery Method Room Air Weight: 315 lb 7.704 oz Body Mass Index (BMI) 55.8 Intake and Output for Last 24 Hours 10/14/17 10/15/17 10/16/17 23:59 23:59 23:59 Intake Total 3700 / 3700 511.6 / 511.6 Output Total 750 / 750 650 / 650 Balance 2950 / 2950 -138.4 / -138.4 Laboratory Tests Past 24 Hrs 10/15/17 10/15/17 10/15/17 10:40 11:04 11:20 WBC RBC Hgb Hct MCV MCH MCHC RDW RDW Differential Plt Count MPV Sodium 139 Potassium 4.2 Chloride 108 H Carbon Dioxide 21.0 Anion Gap 10 BUN 13 Creatinine 0.85 Estim Creat Clear Calc 64.77 Est GFR (MDRD) Af Amer 91 Est GFR (MDRD) Non-Af 75 BUN/Creatinine Ratio 15.3 Glucose 126 H Calcium 8.9 Urine Test Negative Blood Type O POSITIVE Antibody Screen NEGATIVE 10/16/17 10/16/17 05:35 05:35 WBC 11.8 H RBC 3.64 L Hgb 11.5 L Hct 34.9 L MCV 95.9 MCH 31.6 MCHC 33.0 RDW 12.8 RDW Differential 43.5 Plt Count 271 MPV 10.7 Sodium 141 Potassium 4.3 Chloride 106 Carbon Dioxide 23.0 Anion Gap 12 BUN 14 Creatinine 1.01 Estim Creat Clear Calc 54.51 Est GFR (MDRD) Af Amer 74 Est GFR (MDRD) Non-Af 61 BUN/Creatinine Ratio 13.9 Glucose 155 H Calcium 8.3 L Urine Test Blood Type Antibody Screen POC Glucose 10/16/17 10/15/17 06:17 21:49 POC Glucose 162 H 154 H Medical Necessity - Tobacco Use Smoking Status: Never smoker Tobacco Use: Non-smoker Assessment/Plan All Active Problems (Last Reviewed 10/15/17 @ 19:53 by Tonny Ley DO) Injury of large intestine (Acute) Endometrial thickening on ultra sound (Acute) Irregular menstrual bleeding (Acute) 1. POD #1 - Robotic assisted hysterectomy, BSO, enterolysis ambulation is highly encouraged minimizing narcotic use incentive spirometer clears per surgery until flatus production SCD continuous place abdominal binder for ventral hernia 2. Obesity heparin and SCD incentive spirometer ambulate sugar monitoring and medicine consult 3. Large bowel injury via trochar with repair clears until flatus ambulate 4. Ventral hernia reapproximated until mesh repair in future abdominal binder to aid with discomfort and support
--- NOTE | 2017-10-16 07:26 | PCM.OPRPT ---
Problem List (1) Incarcerated ventral hernia Status: Acute (2) Injury of large intestine Status: Acute Qualifiers: Encounter type: initial encounter Qualified Code(s): S36.509A - Unspecified injury of unspecified part of colon, initial encounter Report of Operation Date of Procedure: 10/15/17 Pre-Operative Diagnosis: Possible trocar injury to the bowel. Incarcerated ventral hernia Post-Operative Diagnosis: Confirmed singlewall transverse colon trocar injury. Incarcerated ventral hernia Surgery/Procedure Performed:: Mini laparotomy with exploration and transverse colon enterostomy repair. Laparoscopic ventral hernia repair arts and sciences dean: Felicity Bryan Type of Anesthesia:: General Anesthesiologist: Angela Rick Special Medications: Cefotetan, Zosyn, Heparin Description of Procedure: I was called to the operating room to assist Dr. Hackett with transverse colon repair. Dr. Hackett's note will describe the transverse colon repair. The bowel contents were reduced back into the abdomen and Dr. Hackett left the surgery. At that point I closed the fascial opening with running #1 PDS sutures which met in the middle. The subcutaneous cavity was irrigated copiously with saline and was to be closed with interrupted 4-[address] Bryan at the end of the case. The abdomen was reinsufflated and the transverse colon was inspected and did not appear to have any other stool or openings. Next attention was paid inferiorly and the hernia appear to be incarcerated and blocking any view to proceed with hysterectomy. I reduced the hernia contents back into the abdomen laparoscopically. I took down the adhesions to the hernia sac. Once evident was reduced I measured the hernia and it appeared to be 7 cm in diameter. At that point we decided that we would like to have the defect closed to prevent reincarceration of the hernia. A small incision was made with an 11 blade scalpel just inferior to the umbilicus in the middle of the hernia. Using a Jose Ulloa needle 7 #1 PDS sutures were placed across the hernia defect at approximately 1 cm intervals. The pneumoperitoneum was then dropped to 6 mmHg and these were tied, closing the hernia defect. The pneumoperitoneum was then increased back to 12 mmHg and the repair seemed to hold well. I did not place any mesh due to the contamination of the case. At this time I left the case for Dr. Bryan to continue her hysterectomy. I recommend that the patient return to the operating room after contamination has resolved for buttressing of this repair with intraperitoneal mesh and transfascial sutures.
[2017-10-16 09:39] VITALS: BP 116/67; PULSE 99; RESP 18; TEMP 37.2; O2SAT 94
[2017-10-16 11:10] LABS: Bedside Glucose 163 mg/dL (70-110)
[2017-10-16] MEDS: DiphenhydrAMINE 50 MG/ML Syringe 25 MG IV ×3 (12:56→21:54)
[2017-10-16] MEDS: Nystatin Powder 15gm Bottle 1 APPLIC TOPICAL ×2 (13:28→21:55)
--- NOTE | 2017-10-16 14:50 | CASEMGMT ---
RN CM Face to Face with patient for initial transition planning/care coordination assessment. RN CM introduced self and role at [facility]. Patient sitting in chair, alert and oriented, at bedside. Patient willing to participate in assessment and is able to answer all questions appropriately. Care providers, pharmacy, and demographics verified. Patient lives with family in 2 story house. Patient is independent at home and drives self, family available for transportation. Patient denies need for DME. Patient wishes to discharge home, denies need for home health at this time. Patient states she has no further needs or concerns at this time. CM to follow for discharge planning needs that may arise. Disposition Plan: Patient to discharge home with family support and follow-up plans in place. Linn MCKEON, RN, CM
[2017-10-16 15:05] VITALS: BP 112/61; PULSE 84; RESP 18; TEMP 37.1; O2SAT 94
--- NOTE | 2017-10-16 15:26 | NURSING ---
PT AMBULATED IN [place] WITH THIS RN. PT REMINDED TO USE INCENTIVE SPIROMETER. ANA RILEY
[2017-10-16 16:41] LABS: Bedside Glucose 134 mg/dL (70-110)
[2017-10-16 20:23] VITALS: BP 141/73; PULSE 109; RESP 16; TEMP 37.1; O2SAT 94
[2017-10-16 23:26] LABS: Bedside Glucose 125 mg/dL (70-110)
[2017-10-17] MEDS: Morphine 4 MG/ML Syringe IV ×3 (01:21→08:34)
[2017-10-17] MEDS: DiphenhydrAMINE 50 MG/ML Syringe 25 MG IV ×3 (02:20→12:34)
[2017-10-17 02:43] VITALS: BP 118/76; PULSE 107; RESP 14; TEMP 37; O2SAT 92
[2017-10-17] MEDS: Lactated Ringers 1,000 ML 50 ML IV (02:54)
--- NOTE | 2017-10-17 05:41 | PCM.PN.SRG ---
Patient Problems: Active and Suspected Problems (Last Reviewed 10/15/17 @ 19:53 by Tonny Ley DO) Injury of large intestine (Acute) Incarcerated ventral hernia (Acute) Subjective: Pt in good spirits. No flatus No nausea. Tolerating diabetic clears - Physical Exam Lungs: Clear to auscultation Abdomen: Soft, Hypoactive Bowel Sounds, Distended Vital Signs Temp Pulse Resp BP Pulse Ox 98.6 F 107 H 14 118/76 92 10/17/17 02:43 10/17/17 02:43 10/17/17 02:43 10/17/17 02:43 10/17/17 02:43 Oxygen Flow Rate (L/min) 2 Oxygen Delivery Method Room Air Weight: 315 lb 7.704 oz Body Mass Index (BMI) 55.8 Intake and Output for Last 24 Hours 10/15/17 10/16/17 10/17/17 23:59 23:59 23:59 Intake Total 3700 / 3700 3175.6 / 3175.6 829 / 829 Output Total 750 / 750 2335 / 2335 650 / 650 Balance 2950 / 2950 840.6 / 840.6 179 / 179 Laboratory Tests Past 24 Hrs 10/16/17 10/16/17 05:35 05:35 WBC 11.8 H RBC 3.64 L Hgb 11.5 L Hct 34.9 L MCV 95.9 MCH 31.6 MCHC 33.0 RDW 12.8 RDW Differential 43.5 Plt Count 271 MPV 10.7 Sodium 141 Potassium 4.3 Chloride 106 Carbon Dioxide 23.0 Anion Gap 12 BUN 14 Creatinine 1.01 Estim Creat Clear Calc 54.51 Est GFR (MDRD) Af Amer 74 Est GFR (MDRD) Non-Af 61 BUN/Creatinine Ratio 13.9 Glucose 155 H Calcium 8.3 L POC Glucose 10/16/17 10/16/17 10/16/17 22:10 16:36 10:58 POC Glucose 125 H 134 H 163 H 10/16/17 06:17 POC Glucose 162 H Medical Necessity - Tobacco Use Smoking Status: Never smoker Tobacco Use: Non-smoker Assessment/Plan All Active Problems (Last Reviewed 10/15/17 @ 19:53 by Tonny Ley DO) Injury of large intestine (Acute) Incarcerated ventral hernia (Acute) Endometrial thickening on ultra sound (Acute) Irregular menstrual bleeding (Acute) Few scattered BS Mid line wound no erythema or sign of infection Pt c/o pruritus--most likely Zosyn--will stop Labs pending Advance to diabetic fulls Pt is mobilizing well
[2017-10-17 06:50] LABS: Hematocrit 31.3 % (37-47); Hemoglobin 10.1 g/dl (12.0-15.0); Mean Corp Hgb Conc 32.3 g/gl (32-36); Mean Corpuscular Hgb 31.7 pg (27.0-32.0); Mean Corpuscular Volume 98.1 fL (81-99); Mean Platelet Vol. 10.6 fl (6.2-12.0); Platelet Count 236 K/mm3 (150-450); RBC Distribution Width CV 13.2 % (11.6-14.6); RBC Distribution Width SD 45.5 fl (35.1-43.9); Red Blood Count 3.19 M/mm3 (4.2-5.4); White Blood Count 8.9 K/mm3 (4.4-11.0)
[2017-10-17] MEDS: Lactated Ringers 1,000 ML 30 ML IV (06:56)
[2017-10-17] MEDS: Heparin Injection (Vial) 5,000 UNIT/ML VIAL 5000 UNIT SC ×3 (06:57→21:16)
[2017-10-17] MEDS: Metoclopramide 10 MG/2 ML Vial IV (06:57)
[2017-10-17 07:00] LABS: Scan Indicated on CBC? Y/N NO
[2017-10-17 07:15] LABS: Bedside Glucose 117 mg/dL (70-110)
[2017-10-17 07:32] VITALS: O2SAT 94
[2017-10-17 08:29] VITALS: BP 128/63; PULSE 113; RESP 18; TEMP 36.9; O2SAT 92
[2017-10-17] MEDS: Famotidine 20 MG Tablet PO ×2 (08:31→21:16)
--- NOTE | 2017-10-17 09:50 | PCM.PN.OB ---
Patient Problems: Active and Suspected Problems (Last Reviewed 10/15/17 @ 19:53 by Tonny Ley DO) Injury of large intestine (Acute) Incarcerated ventral hernia (Acute) Irregular menstrual bleeding (Acute) Subjective: No flatus. No nausea and no vomiting. Advancement of diet to full liquids per general surgery. Ambulating often. - Physical Exam General: Alert, Oriented x3 HEENT: PERRLA Oral: Moist Mucosa Neck: Supple, No Nuchal Rigidity Lungs: Clear to auscultation, Normal air movement Cardiovascular: Regular rate, Regular Rhythm Abdomen: Soft, Non Tender, Non-Distended, Hypoactive Bowel Sounds Extremities: No cyanosis, No edema, No Calf Tenderness Skin: No rashes Musculoskeletal: No Tenderness to Palpation of Joints or Extremities Neurological: Cranial nerves II-XII grossly intact Vital Signs Temp Pulse Resp BP Pulse Ox 98.4 F 113 H 18 128/63 H 92 10/17/17 08:29 10/17/17 08:29 10/17/17 08:29 10/17/17 08:29 10/17/17 08:29 Oxygen Flow Rate (L/min) 2 Oxygen Delivery Method Room Air Weight: 315 lb 7.704 oz Body Mass Index (BMI) 55.8 Intake and Output for Last 24 Hours 10/15/17 10/16/17 10/17/17 23:59 23:59 23:59 Intake Total 3700 / 3700 3175.6 / 3175.6 1532 / 1532 Output Total 750 / 750 2335 / 2335 900 / 900 Balance 2950 / 2950 840.6 / 840.6 632 / 632 Laboratory Tests Past 24 Hrs 10/17/17 05:20 WBC 8.9 RBC 3.19 L Hgb 10.1 L Hct 31.3 L MCV 98.1 MCH 31.7 MCHC 32.3 RDW 13.2 RDW Differential 45.5 H Plt Count 236 MPV 10.6 POC Glucose 10/17/17 10/16/17 10/16/17 07:00 22:10 16:36 POC Glucose 117 H 125 H 134 H 10/16/17 10:58 POC Glucose 163 H Medical Necessity - Tobacco Use Smoking Status: Never smoker Tobacco Use: Non-smoker Assessment/Plan All Active Problems (Last Reviewed 10/15/17 @ 19:53 by Tonny Ley DO) Injury of large intestine (Acute) Incarcerated ventral hernia (Acute) Irregular menstrual bleeding (Acute) Endometrial thickening on ultra sound (Acute) Irregular menstrual bleeding (Acute) 1. POD #1 - Robotic assisted hysterectomy, BSO, enterolysis ambulation is highly encouraged - catheter to be discontinued for improved ambulation and toileting minimizing narcotic use - adding oral Tylenol with diet advancement. Consider oral narcotic later today if tolerating advanced diet. incentive spirometer full liquids per general surgery SCD continuous place abdominal binder for ventral hernia 2. Obesity heparin and SCD incentive spirometer ambulate sugar monitoring and medicine consult- medicine input appreciated 3. Large bowel injury via trochar with repair appreciate general team leader surgery ambulate 4. Ventral hernia reapproximated until mesh repair in future abdominal binder to aid with discomfort and support
[2017-10-17] MEDS: Acetaminophen 325 MG Tablet 650 MG PO ×3 (10:29→21:16)
[2017-10-17 11:30] LABS: Bedside Glucose 108 mg/dL (70-110)
[2017-10-17 14:30] VITALS: BP 128/72; PULSE 98; RESP 18; TEMP 37.2; O2SAT 94
--- NOTE | 2017-10-17 14:43 | PCM.PN.HOSP ---
Patient Problems: Active and Suspected Problems (Last Reviewed 10/15/17 @ 19:53 by Tonny Ley DO) Irregular menstrual bleeding (Acute) Injury of large intestine (Acute) Incarcerated ventral hernia (Acute) Subjective: Tolerating clears. No flatus. Rash resolved. Vitals/I&O's: Vital Signs Temp Pulse Resp BP Pulse Ox 36.9 C 113 H 18 128/63 H 92 10/17/17 08:29 10/17/17 08:29 10/17/17 08:29 10/17/17 08:29 10/17/17 08:29 Oxygen Flow Rate (L/min) 2 Oxygen Delivery Method Room Air Weight: 143.1 kg Body Mass Index (BMI) 55.8 Intake and Output for Last 24 Hours 10/15/17 10/16/17 10/17/17 23:59 23:59 23:59 Intake Total 3700 / 3700 3175.6 / 3175.6 2019 / 2019 Output Total 750 / 750 2335 / 2335 1150 / 1150 Balance 2950 / 2950 840.6 / 840.6 870 / 870 General: Alert, No apparent distress, - - up in chair HEENT: Atraumatic, Normocephalic Oral: Moist Mucosa, No Gingival or Mucosal Lesions/ Ulcerations Neck: No Nodes, Thyroid Normal Size and Texture Lungs: Clear to auscultation, Normal air movement, No rhonchi, No wheeze Cardiovascular: Regular rate, Regular Rhythm, Normal S1, Normal S2, No murmurs Abdomen: Bowel Sounds Present, Soft, Non Tender, Hypoactive Bowel Sounds, Distended Extremities: No edema, No Calf Tenderness Skin: No rashes, No breakdown Psych/Mental Status: Normal Affect, Appropriate Laboratory Results 10/16/17 16:36: POC Glucose 134 H 10/16/17 22:10: POC Glucose 125 H 10/17/17 05:20: WBC 8.9, RBC 3.19 L, Hgb 10.1 L, Hct 31.3 L, MCV 98.1, MCH 31.7, MCHC 32.3, RDW 13.2, RDW Differential 45.5 H, Plt Count 236, MPV 10.6 10/17/17 07:00: POC Glucose 117 H 10/17/17 11:19: POC Glucose 108 Current Medications Acetaminophen (Tylenol) 650 mg PO Q4H [facility] Last Admin: 10/17/17 10:29 Dose: 650 mg Dextrose (D50w Syringe) 0 gm IV X1 PRN; Protocol PRN Reason: Hypoglycemia Diphenhydramine HCl (Benadryl) 25 mg PO TID PRN PRN PRN Reason: ITCHING Famotidine (Pepcid) 20 mg PO BID [facility] Last Admin: 10/17/17 08:31 Dose: 20 mg Glucagon () 1 mg IM .X1 PRN PRN Reason: Hypoglycemia Heparin Sodium (Porcine) (Heparin Na) 5,000 unit SC Q8 [facility] Last Admin: 10/17/17 06:57 Dose: 5,000 unit Insulin Human Lispro (Humalog Kwikpen (Bkc)) 0 unit SQ TIDAC PRECIOUS PRN Reason: Protocol Last Admin: 10/17/17 11:22 Dose: Not Given Metoclopramide HCl (Reglan) 10 mg IV Q8 [facility] Last Admin: 10/17/17 06:57 Dose: 10 mg Morphine Sulfate () 4 mg IV Q2H PRN PRN PRN Reason: SEVERE PAIN (6-10/10) Last Admin: 10/17/17 08:34 Dose: 4 mg Nystatin (Mycostatin Powder) 1 applic TOPICAL TID [facility] PRN Reason: Protocol Last Admin: 10/17/17 06:57 Dose: Not Given Ondansetron HCl (Zofran) 4 mg IV Q4H PRN PRN PRN Reason: NAUSEA Phenazopyridine HCl (Azo Standard) 190 mg PO TID [facility] Stop: 10/19/17 06:01 Medical Necessity - Tobacco Use Smoking Status: Never smoker Tobacco Use: Non-smoker Assessment/Plan All Active Problems (Last Reviewed 10/15/17 @ 19:53 by Tonny Ley DO) Irregular menstrual bleeding (Acute) Injury of large intestine (Acute) Incarcerated ventral hernia (Acute) Endometrial thickening on ultra sound (Acute) Irregular menstrual bleeding (Acute) 1. Hyperglycemia No known history of diabetes and Will check blood sugars Patient will be on a moderate dose sliding scale insulin fair control had required 1 uni early on, but not subsequently. recommend follow up with PCP, to see if long-term medication would be necessary at this point in time, would not recommend any long-term medications. 2. Status post transverse colon injury Status post mini laparotomy with enterostomy repair Per general surgery 3. Status post hysterectomy Management per gynecology 4. Drug rash resolved presumably d/t Zosyn, which has been stopped. 5. DVT prophylaxis: SCDs Code Visit Inpatient E&M: 04316 Subs Hosp L2
[2017-10-17] MEDS: Phenazopyridine 95 MG Tablet 190 MG PO ×2 (15:10→21:16)
[2017-10-17 16:25] LABS: Bedside Glucose 118 mg/dL (70-110)
[2017-10-17] MEDS: Ondansetron 8 MG Tablet 4 MG PO (17:56)
[2017-10-17 21:13] VITALS: BP 145/76; PULSE 97; RESP 18; TEMP 36.6; O2SAT 95
[2017-10-17] MEDS: oxyCODONE 5 MG Tablet PO (21:58)
[2017-10-18 00:21] LABS: Bedside Glucose 101 mg/dL (70-110)
[2017-10-18] MEDS: Acetaminophen 325 MG Tablet 650 MG PO ×3 (01:02→10:49)
[2017-10-18] MEDS: oxyCODONE 5 MG Tablet PO ×3 (02:02→11:50)
[2017-10-18 03:03] VITALS: BP 115/67; PULSE 91; RESP 18; TEMP 36.7; O2SAT 97
--- NOTE | 2017-10-18 05:17 | PCM.PN.SRG ---
Patient Problems: Active and Suspected Problems (Last Reviewed 10/15/17 @ 19:53 by Tonny Ley DO) Irregular menstrual bleeding (Acute) Injury of large intestine (Acute) Incarcerated ventral hernia (Acute) Subjective: Pt really feeling quite well Flatus and small stool this a.m. - Physical Exam Abdomen: Bowel Sounds Present - wounds clean, Soft Vital Signs Temp Pulse Resp BP Pulse Ox 98.1 F 91 18 115/67 97 10/18/17 03:03 10/18/17 03:03 10/18/17 03:03 10/18/17 03:03 10/18/17 03:03 Oxygen Flow Rate (L/min) 2 Oxygen Delivery Method Room Air Weight: 315 lb 7.704 oz Body Mass Index (BMI) 55.8 Intake and Output for Last 24 Hours 10/16/17 10/17/17 10/18/17 23:59 23:59 23:59 Intake Total 3175.6 / 3175.6 2580 / 2580 Output Total 2335 / 2335 1900 / 1900 Balance 840.6 / 840.6 680 / 680 Laboratory Tests Past 24 Hrs 10/17/17 05:20 WBC 8.9 RBC 3.19 L Hgb 10.1 L Hct 31.3 L MCV 98.1 MCH 31.7 MCHC 32.3 RDW 13.2 RDW Differential 45.5 H Plt Count 236 MPV 10.6 POC Glucose 10/17/17 10/17/17 10/17/17 21:20 16:19 11:19 POC Glucose 101 118 H 108 10/17/17 07:00 POC Glucose 117 H Medical Necessity - Tobacco Use Smoking Status: Never smoker Tobacco Use: Non-smoker Assessment/Plan All Active Problems (Last Reviewed 10/15/17 @ 19:53 by Tonny Ley DO) Irregular menstrual bleeding (Acute) Injury of large intestine (Acute) Incarcerated ventral hernia (Acute) Endometrial thickening on ultra sound (Acute) Irregular menstrual bleeding (Acute) Advance diet Pt ready for discharge Followup with Dr Thornton in 7-10 days for further hernia consultation
--- NOTE | 2017-10-18 05:20 | PCM.DC.GS ---
Discharge Diet: Light diet - advance as tolerated - if you have questions about your diet instructions, please talk to you doctor. Discharge Activity: May Not Drive - for 1 week or while taking narcotic pain medicine. May shower in (days): 0 - May shower today Lifting Restrictions: 10 pounds Call your doctor if your incision/area has: Continuous Slow Oozing, Sudden Increased Bleeding, Increased Pain/ Swelling, Increased Redness, Foul Smelling Discharge Call your doctor if you observe: Fever of 101 or Higher Suture Line Care: Avoid Pulling/Pushing, Avoid Pinching/Bending Additional Dressing/Incision Instructions:: Change or remove dressing in 2 days. Leave steri-strips in place for 1 week. Allergies/Adverse Reactions: Allergies Tetanus Vaccines and Toxoid [Tetanus Vaccines & Toxoid] Allergy (Verified 10/08/17 13:13) Rash codeine Adverse Reaction (Verified 10/08/17 13:13) Other HEART RACING Medications to take at Discharge Magnesium 250 mg PO DAILY 02/06/17 Multivitamin [Daily Multiple Vitamin] 1 ea PO DAILY 02/06/17 Progesterone,Micronized [Prometrium] 400 mg PO QHS #60 cap 02/08/17 Primary Care Physician: Mookie Walter MD [Primary Care Provider] - Test Results: Test results from this visit will be discussed in further detail at your follow-up appointment, if applicable. Please Follow Up With: Adi Thornton MD - [phone] When: Call to make an appointment to be seen in about 7- 10 days.
[2017-10-18] MEDS: Heparin Injection (Vial) 5,000 UNIT/ML VIAL 5000 UNIT SC (05:37)
[2017-10-18] MEDS: Phenazopyridine 95 MG Tablet 190 MG PO (05:37)
[2017-10-18 06:23] LABS: Hematocrit 30.7 % (37-47); Hemoglobin 10.1 g/dl (12.0-15.0); Mean Corp Hgb Conc 32.9 g/gl (32-36); Mean Corpuscular Hgb 32.2 pg (27.0-32.0); Mean Corpuscular Volume 97.8 fL (81-99); Platelet Count 262 K/mm3 (150-450); Red Blood Count 3.14 M/mm3 (4.2-5.4); White Blood Count 7.2 K/mm3 (4.4-11.0)
[2017-10-18 06:38] LABS: Scan Indicated on CBC? Y/N NO
[2017-10-18 06:51] LABS: Bedside Glucose 137 mg/dL (70-110)
--- NOTE | 2017-10-18 06:53 | PCM.DC.VHY ---
Discharge Diet: Light diet - advance as tolerated - if you have questions about your diet instructions, please talk to you doctor., - - No beef, pork or fresh vegetables a minimum of 2 weeks after surgery. Protein shakes are encouraged. Water intake a minimum of 100 ounces per day. Discharge Activity: May Not Drive - for 1 week or while taking narcotic pain medicine., - - Ambulate often with periods of rest in between May shower in (days): 0 - May shower today May resume sexual activity in: 6-8 weeks Weight Bearing Status: Full weight bearing Lifting Restrictions: 5 Call your doctor if your incision/area has: Continuous Slow Oozing, Sudden Increased Bleeding, Increased Pain/ Swelling, Increased Redness, Foul Smelling Discharge Call your doctor if you observe: Fever of 101 or Higher, Inability to urinate, Inability to have a bowel movement, Using more than one pad per hour, Shortness of breath Suture Line Care: Avoid Pulling/Pushing, Avoid Pinching/Bending Remove Dressing in (days):: 0 - Remove dressings today and leave open to air Cleanse incision/area with: Soap & Water Additional Dressing/Incision Instructions:: Change or remove dressing in 2 days. Leave steri-strips in place for 1 week. Allergies/Adverse Reactions: Allergies Tetanus Vaccines and Toxoid [Tetanus Vaccines & Toxoid] Allergy (Verified 10/08/17 13:13) Rash codeine Adverse Reaction (Verified 10/08/17 13:13) Other HEART RACING Medications to take at Discharge Magnesium 250 mg PO DAILY 02/06/17 Multivitamin [Daily Multiple Vitamin] 1 ea PO DAILY 02/06/17 Progesterone,Micronized [Prometrium] 400 mg PO QHS #60 cap 02/08/17 Primary Care Physician: Mookie Walter MD [Primary Care Provider] - Test Results: Test results from this visit will be discussed in further detail at your follow-up appointment, if applicable. Please Follow Up With: Adi Thornton MD - [phone] When: Call to make an appointment to be seen in about 7- 10 days. Please Follow Up With: Felicity Bryan MD When: 1 week and call for appointment if not already scheduled
[2017-10-18 07:12] VITALS: O2SAT 94
--- NOTE | 2017-10-18 07:25 | PCM.PN.OB ---
Patient Problems: Active and Suspected Problems (Last Reviewed 10/15/17 @ 19:53 by Tonny Ley DO) Irregular menstrual bleeding (Acute) Injury of large intestine (Acute) Incarcerated ventral hernia (Acute) Subjective: Feels well. + Flatus. No nausea and no vomiting. Ambulating well. - Physical Exam General: Alert, Oriented x3, Cooperative, No apparent distress HEENT: PERRLA Oral: Moist Mucosa Neck: Supple, No Nuchal Rigidity Lungs: Clear to auscultation, Normal air movement, No wheeze Cardiovascular: Regular rate, Regular Rhythm Abdomen: Bowel Sounds Present, Soft, Non Tender, Non-Distended, Passing Flatus Extremities: No edema, No Calf Tenderness Skin: No rashes Musculoskeletal: No Tenderness to Palpation of Joints or Extremities, No Muscle Wasting Neurological: Cranial nerves II-XII grossly intact Vital Signs Temp Pulse Resp BP Pulse Ox 98.1 F 91 18 115/67 97 10/18/17 03:03 10/18/17 03:03 10/18/17 03:03 10/18/17 03:03 10/18/17 03:03 Oxygen Flow Rate (L/min) 2 Oxygen Delivery Method Room Air Weight: 315 lb 7.704 oz Body Mass Index (BMI) 55.8 Intake and Output for Last 24 Hours 10/16/17 10/17/17 10/18/17 23:59 23:59 23:59 Intake Total 3175.6 / 3175.6 2580 / 2580 120 / 120 Output Total 2335 / 2335 1900 / 1900 Balance 840.6 / 840.6 680 / 680 120 / 120 Laboratory Tests Past 24 Hrs 10/18/17 05:54 WBC 7.2 RBC 3.14 L Hgb 10.1 L Hct 30.7 L MCV 97.8 MCH 32.2 H MCHC 32.9 RDW 13.0 RDW Differential 45.0 H Plt Count 262 MPV 10.0 POC Glucose 10/18/17 10/17/17 10/17/17 06:41 21:20 16:19 POC Glucose 137 H 101 118 H 10/17/17 11:19 POC Glucose 108 Medical Necessity - Tobacco Use Smoking Status: Never smoker Tobacco Use: Non-smoker Assessment/Plan All Active Problems (Last Reviewed 10/15/17 @ 19:53 by Tonny Jopperi, DO) Irregular menstrual bleeding (Acute) Injury of large intestine (Acute) Incarcerated ventral hernia (Acute) Endometrial thickening on ultra sound (Acute) Irregular menstrual bleeding (Acute) 1. POD #3 - Robotic assisted hysterectomy, BSO, enterolysis ambulation is highly encouraged and occurring minimizing narcotic use incentive spirometer full liquids per general surgery SCD continuous place abdominal binder for ventral hernia discharge to home after lunch today 2. Obesity heparin and SCD - home Lovenox prescribed incentive spirometer ambulate sugar monitoring and medicine consult- medicine input appreciated 3. Large bowel injury via trochar with repair appreciate general surgery aide ambulate 4. Ventral hernia reapproximated until mesh repair in future abdominal binder to aid with discomfort and support
[2017-10-18 08:22] VITALS: BP 128/73; PULSE 93; RESP 18; TEMP 36.7; O2SAT 94
[2017-10-18] MEDS: Famotidine 20 MG Tablet PO (08:22)
--- NOTE | 2017-10-18 08:50 | PCM.PN.HOSP ---
Patient Problems: Active and Suspected Problems (Last Reviewed 10/15/17 @ 19:53 by Tonny Ley DO) Irregular menstrual bleeding (Acute) Injury of large intestine (Acute) Incarcerated ventral hernia (Acute) Subjective: Doing well eating breakfast and pain is controlled. she is ambulating and passing gas Vitals/I&O's: Vital Signs Temp Pulse Resp BP Pulse Ox 98.1 F 93 18 128/73 H 94 10/18/17 08:22 10/18/17 08:22 10/18/17 08:22 10/18/17 08:22 10/18/17 08:22 Oxygen Flow Rate (L/min) 2 Oxygen Delivery Method Room Air Weight: 315 lb 7.704 oz Body Mass Index (BMI) 55.8 Intake and Output for Last 24 Hours 10/16/17 10/17/17 10/18/17 23:59 23:59 23:59 Intake Total 3175.6 / 3175.6 2580 / 2580 120 / 120 Output Total 2335 / 2335 1900 / 1900 Balance 840.6 / 840.6 680 / 680 120 / 120 General: Alert, Oriented x3, Cooperative, No apparent distress HEENT: Atraumatic, EOMI, Normocephalic Oral: Moist Mucosa Neck: Supple, No JVD Lungs: Clear to auscultation, Normal air movement, No rhonchi, No wheeze, No rales Cardiovascular: Regular rate, Regular Rhythm, Normal S1, Normal S2, No murmurs, No Ectopic Activity Abdomen: Soft, Non Tender, Non-Distended, No Hepato-splenomegaly Neurological: Neuro grossly intact, Sensory exam intact to light touch and pain Psych/Mental Status: Normal Affect, Appropriate Laboratory Results 10/17/17 11:19: POC Glucose 108 10/17/17 16:19: POC Glucose 118 H 10/17/17 21:20: POC Glucose 101 10/18/17 05:54: WBC 7.2, RBC 3.14 L, Hgb 10.1 L, Hct 30.7 L, MCV 97.8, MCH 32.2 H, MCHC 32.9, RDW 13.0, RDW Differential 45.0 H, Plt Count 262, MPV 10.0 10/18/17 06:41: POC Glucose 137 H Current Medications Acetaminophen (Tylenol) 650 mg PO Q4H [facility] Last Admin: 10/18/17 05:38 Dose: 650 mg Dextrose (D50w Syringe) 0 gm IV X1 PRN; Protocol PRN Reason: Hypoglycemia Diphenhydramine HCl (Benadryl) 25 mg PO TID PRN PRN PRN Reason: ITCHING Famotidine (Pepcid) 20 mg PO BID [facility] Last Admin: 10/18/17 08:22 Dose: 20 mg Glucagon () 1 mg IM .X1 PRN PRN Reason: Hypoglycemia Heparin Sodium (Porcine) (Heparin Na) 5,000 unit SC Q8 [facility] Last Admin: 10/18/17 05:37 Dose: 5,000 unit Insulin Human Lispro (Humalog Kwikpen (Bkc)) 0 unit SQ TIDAC PRECIOUS PRN Reason: Protocol Last Admin: 10/18/17 06:53 Dose: Not Given Metoclopramide HCl (Reglan) 10 mg IV Q8 [facility] Last Admin: 10/18/17 05:35 Dose: Not Given Nystatin (Mycostatin Powder) 1 applic TOPICAL TID [facility] PRN Reason: Protocol Last Admin: 10/18/17 05:35 Dose: Not Given Ondansetron HCl (Zofran) 4 mg PO Q4H PRN PRN PRN Reason: NAUSEA Last Admin: 10/17/17 17:56 Dose: 4 mg Oxycodone HCl (Oxyir) 5 mg PO Q4H PRN PRN PRN Reason: SEVERE PAIN (6-10/10) Last Admin: 10/18/17 06:03 Dose: 5 mg Phenazopyridine HCl (Azo Standard) 190 mg PO TID [facility] Stop: 10/19/17 06:01 Last Admin: 10/18/17 05:37 Dose: 190 mg Medical Necessity - Tobacco Use Smoking Status: Never smoker Tobacco Use: Non-smoker Assessment/Plan All Active Problems (Last Reviewed 10/15/17 @ 19:53 by Tonny Ley DO) Irregular menstrual bleeding (Acute) Injury of large intestine (Acute) Incarcerated ventral hernia (Acute) Endometrial thickening on ultra sound (Acute) Irregular menstrual bleeding (Acute) 1. Hyperglycemiqa - given her lack of history recommend outpatient follow-up with no new medications - Increased sugar can be d/t surgery, stress, infection - No insulin given 2. POD 3 from hysterectomy and transverse colon injury - Doing qwell after both - clear for discharge from a medical standpoint - f/u as an outpatient with surgery, fisher dip net, and PCP Code Visit Inpatient E&M: 24828 Subs Hosp L2
[2017-10-18 12:26] LABS: Bedside Glucose 129 mg/dL (70-110)
--- NOTE | 2017-10-21 16:41 | PCM.DC.SUM ---
Discharge Date and Diagnosis Date of Admission: 10/15/17 Date of Discharge: 10/18/17 - Primary Discharge Diagnosis Irregular menstrual cycle, thickened endometrium imaging studies, injury to large bowel, ventral hernia - Secondary Discharge Diagnosis hyperglycemia obesity Hospital Course and Treatment Dr. Kory Ley Operations: hysterectomy, - - repair of large bowel trocar injury, reduction of ventral hernia, bilateral salpingo-oophorectomy Summary of Care Provided: The patient is a 52 year old F who underwent a robotic assisted vaginal hysterectomy, bilateral salpingo-oophorectomy. Upon entry into the abdominal cavity with the 12 mm disposable trocar for robotic procedure, the large colon was encountered encased in pelvic adhesive disease from the large colon omentum to the anterior abdominal wall. This was noted to be superior to a very large ventral hernia. Dr. Kory Hackett and Dr. Adi Adorno to have presented and created a laparotomy site at the prior 12 mm camera site to investigate the bowel, reduce adhesions, and to repair the ostomy site of the large colon. This area was then repaired via the fascia by Dr. Adi Browne. Additional trocar sites were then established for the robotic part of the procedure but before able to accomplish that part of the operation, Dr. guillory was able to reduce the ventral hernia and secure inferiorly the fascial layer of the abdominal wall. After repair of this ventral hernia site, the robotic hysterectomy with bilateral salpingo-oophorectomy progressed. Enteral lysis at the vesicouterine peritoneum was required likely in relationship to the prior section. After surgery occurred patient was admitted to the medical surgical floor for postoperative care. To be stable. By day 1 after surgery patient continued with ambulation along with receiving a few liquid diet. Patient had slow bowel return by day 3 after surgery and had slow progression of diet throughout the 3D hospital stay. She was noted to have adequate pain control with minimal IV and then eventual oral narcotics. Patient had ambulation throughout the hospital stay. The small bowel before discharge to home. Patient was discharged home on day 3 after surgery. She was discharged to the home setting with oral narcotics, Colace to aid with bowel function, Pyridium to aid with bladder function. Patient was also instructed to use Lovenox on a BID basis which was dosed on her BMI. Patient also was encouraged to use Tylenol in the home setting as well. Patient's discharge instructions give specifics on a very low residue diet with no beef or pork or fresh vegetables to be ingested. She was also instructed on frequent ambulation with periods of rest in between. She had a 5 pound weight limit. She was able to walk in shower but no tub bathing was advised. Stairs were on a limited basis. She is to return to the office setting for a first postop visit in 1 week's time and that was to be arranged by the patient.] Discharge Diet: - - low residue. No beef, pork or fresh vegetables 2 weeks postop Discharge Activity: May Not Drive - for 1 week or while taking narcotic pain medicine., - - Ambulate often with periods of rest in between May shower in (days): 0 - June shower today May resume sexual activity in: 6-8 weeks Weight Bearing Status: Full weight bearing Lifting Restrict to (lbs):: 5 Call your doctor if your incision/area has: Continuous Slow Oozing, Sudden Increased Bleeding, Increased Pain/ Swelling, Increased Redness, Foul Smelling Discharge Call your doctor if you observe: Fever of 101 or Higher, Inability to urinate, Inability to have a bowel movement, Using more than one pad per hour, Shortness of breath Suture Line Care: Avoid Pulling/Pushing, Avoid Pinching/Bending Remove Dressing in (days):: 0 - Remove dressings today and leave open to air Cleanse incision/area with: Soap & Water Additional Dressing/Incision Instructions:: Change or remove dressing in 2 days. Leave steri-strips in place for 1 week. Home Medications: Medications to take at Discharge Magnesium 250 mg PO DAILY 02/06/17 Multivitamin [Daily Multiple Vitamin] 1 ea PO DAILY 02/06/17 Progesterone,Micronized [Prometrium] 400 mg PO QHS #60 cap 02/08/17 Docusate Sodium [Colace] 100 mg PO BID #30 cap 10/18/17 Enoxaparin Sodium [Lovenox] 40 mg SQ Q12H 7 Days #14 syringe 10/18/17 Oxycodone [Oxyir] 5 mg PO Q4H PRN PRN 7 Days #30 tablet 10/18/17 Following Prescrptions Were Given to Patient: Oxycodone [Oxyir] 5 mg PO Q4H PRN PRN 7 Days #30 tablet PRN Reason: Pain Enoxaparin Sodium [Lovenox] 40 mg SQ Q12H 7 Days #14 syringe Docusate Sodium [Colace] 100 mg PO BID #30 cap Primary Care Physician: Mookie Walter MD [Primary Care Provider] - Please Follow Up With: Adi Thornton MD - [phone] When: Call to make an appointment to be seen in about 7- 10 days. Please Follow Up With: Felicity Bryan MD When: 1 week and call for appointment if not already scheduled Medical Necessity - Tobacco Use Smoking Status: Never smoker Tobacco Use: Non-smoker Meaningful Use Info Meaningful Use Diagnoses (Choose all that apply): None applicable
== END 2017-10-18 13:07 | disposition home or self-care (01) | DRG 908 ==
LOC: SDC 18:40 → MS3 18:40
PROVIDERS: Surgery; Admitting Provider Obstetrics & Gynecology; Family Provider Family Medicine; PCP Family Medicine; Visit Provider Family Medicine
PROC: 0UT90ZZ Resection of Uterus, Open Approach (ICD-10-PCS; principal; 2017-10-15 11:40)
PROC: 0DQL0ZZ Repair Transverse Colon, Open Approach (ICD-10-PCS; CPT 49000; 2017-10-15 11:40)
PROC: 0WQF4ZZ Repair Abdominal Wall, Percutaneous Endoscopic Approach (ICD-10-PCS; 2017-10-15 11:40)
DX: K91.72 Accidental puncture and laceration of a digestive system organ or structure during other procedure (principal); Z68.43 Body mass index [BMI] 50.0-59.9, adult; K43.6 Other and unspecified ventral hernia with obstruction, without gangrene; Y83.8 Other surgical procedures as the cause of abnormal reaction of the patient, or of later complication, without mention of misadventure at the time of the procedure; N92.6 Irregular menstruation, unspecified; E66.9 Obesity, unspecified; R93.8 Abnormal findings on diagnostic imaging of other specified body structures
CPT/HCPCS: 36415; 80048; 81025; 82962; 85027; 86850; 86900; 88307; 94762; 97162; 97530; 97802; J7120; A4216; J2405; J3490

== ENCOUNTER → 2017-10-24 10:58 | Outpatient (CLI) | payer BC, SELFPAY | PROVIDERS: Family Provider Family Medicine; PCP Family Medicine; Visit Provider Obstetrics & Gynecology | DX: K43.9 Ventral hernia without obstruction or gangrene (principal) | CPT/HCPCS: 74176 ==

== ENCOUNTER → 2017-10-29 12:55 | Outpatient (CLI) | payer BC, SELFPAY | PROVIDERS: Family Provider Family Medicine; PCP Family Medicine; Visit Provider Surgery | DX: L76.32 Postprocedural hematoma of skin and subcutaneous tissue following other procedure (principal) | CPT/HCPCS: 87070; 87075; 87205 ==

== ENCOUNTER 2017-11-06 08:08 | Outpatient (RCR) | payer BC, SELFPAY | END 2017-11-24 23:59 | LOC: NS 08:08 | PROVIDERS: Family Provider Family Medicine; PCP Family Medicine; Visit Provider Family Medicine | DX: E66.01 Morbid (severe) obesity due to excess calories (principal); Z68.43 Body mass index [BMI] 50.0-59.9, adult; Z71.3 Dietary counseling and surveillance | CPT/HCPCS: 97803 ==

== ENCOUNTER 2017-11-14 19:24 | Observation (INO) | payer BC, SELFPAY ==
[2017-11-14] VITALS (17 sets, daily range): BP systolic 103–160; BP diastolic 49–91; PULSE 68–106; RESP 16–20; TEMP 36.2–36.9; O2SAT 91–98; BMI 53.3
--- NOTE | 2017-11-14 13:00 | HERN_PTH ---
PATIENT: JUNIOR CONTE LOC: [facility]2 U#:[id number] AGE/SX: 52/F ROOM: [facility]217 RE11/14/[address]: Dr. Adi Thornton MD : 1965 BED: 1 DIS: 11/15/2017 SPEC #: [id number] RECD: 11/15/17 08:16 STATUS: BRYAN ROSE MARIE #: [id number] CLAY: 11/14/17 13:[address]: Adi Thornton DEPT: SURGICAL PATHOLOGY RECD BY: Cl Chawla ENTERED: 11/15/17 10:47 SP TYPE: Hernia OTHR DR: Dr. Adan Walter MD Tissues: HERNIA Procedures: Surgery Specimen Level II HEADER OPERATION: Laparoscopic ventral hernia repair with mesh PRE-OP DIAGNOSIS: Ventral hernia TISSUE SUBMITTED: Hernia sac MICROSCOPIC DIAGNOSIS Hernia sac, herniorrhaphy: Fibrofatty tissue with acute and chronic inflammation, granulation, vascular congestion, fibrosis and focal fat necrosis. AM:rere 11/18/17 MICROSCOPIC DESCRIPTION Slides are reviewed. GROSS DESCRIPTION Received in fixative is one container labeled with the patient's name and designated hernia sac. The specimen consists of three variable sized pieces of congested and hemorrhagic soft tissue measuring in aggregate 14 x 9 x 4 cm. Sections do not reveal any mass lesion. Sections reveal focally congested and hemorrhagic cut surfaces. Scheduling Representative sections are submitted in three cassettes. / DONA:rere 11/15/17 TC:2 CPT: 45678
[2017-11-14] MEDS: Bupiv/Epi 0.5% Mpf 30 ML Vial (14:25)
--- NOTE | 2017-11-14 14:49 | PCM.DC.HER ---
Discharge Diet: Light diet - advance as tolerated Discharge Activity: Return to Normal Activity, May Not Drive - for 2-3 days or while taking narcotic pain meds., May Shower - with the bandage in place 1-2 days after surgery. Lifting Restrictions: 20 pounds Additional Activity Instructions:: Climbing stairs is fine, walking is encouraged. Sitting in bed may be uncomfortable. Sitting up using your lateral muscles (sitting up sideways) is usually more comfortable. Do not drive, work heavy equipment of sign legal documents for 24 hours. Pain medications may cause nausea, you should typically eat light foods as you take your pain medications. Pain medications may also cause constipation. If you have difficulty with this, discuss with your doctor. Call your doctor if your incision/area has: Continuous Slow Oozing, Sudden Increased Bleeding, Increased Pain/ Swelling, Increased Redness, Foul Smelling Discharge Call your doctor if you observe: Fever of 101 or Higher Suture Line Care: Avoid Pulling/Pushing, Avoid Pinching/Bending Change Dressing in (Days):: 3 - Leave steri-strips for 1 week. May protect with a guaze bandaid. Cleanse incision/area with: Keep Dressing Clean & Dry Drain: Suction Additional Dressing/Incision Instructions:: Record daily Drainage output amount Allergies/Adverse Reactions: Allergies piperacillin [From Zosyn] Allergy (Verified 11/13/17 11:36) Unknown tazobactam [From Zosyn] Allergy (Verified 11/13/17 11:36) Unknown Tetanus Vaccines and Toxoid [Tetanus Vaccines & Toxoid] Allergy (Verified 11/01/17 13:46) Rash codeine Adverse Reaction (Verified 11/01/17 13:46) Other HEART RACING Medications to take at Discharge Magnesium 250 mg PO DAILY 02/06/17 Multivitamin [Daily Multiple Vitamin] 1 ea PO DAILY 02/06/17 Docusate Sodium [Colace] 100 mg PO BID #30 cap 10/18/17 Oxycodone [Oxyir] 5 mg PO Q4H PRN PRN 7 Days #30 tab 10/18/17 Oxycodone [Oxyir] 5 - 10 mg PO Q4H PRN PRN 7 Days #50 tablet 11/14/17 The following prescriptions were given: Oxycodone [Oxyir] 5 - 10 mg PO Q4H PRN PRN 7 Days #50 tablet PRN Reason: Pain Primary Care Physician: Mookie Walter MD [Primary Care Provider] - Test Results: Test results from this visit will be discussed in further detail at your follow-up appointment, if applicable. Please Follow Up With: Adi Thortnon MD When: Please call to schedule 1 week follow up appointment. [phone]
--- NOTE | 2017-11-14 14:53 | PCM.OPRPT ---
Problem List (1) Incarcerated ventral hernia Status: Acute Report of Operation Date of Procedure: 11/14/17 Pre-Operative Diagnosis: 1. Inflamed hernia sac with seroma. 2. History of ventral hernia repair without mesh Post-Operative Diagnosis: 1. Inflamed hernia sac with hematoma. 2. Intra-abdominal adhesions. 3. Diastases recti Surgery/Procedure Performed:: 1. Excision of inflamed hernia sac and removal of hematoma. 2. Exploratory laparoscopy with takedown of adhesions Specimen's removed: Hernia sac Drains: SUMMER to bulb suction Estimated Blood Loss (mL): 200 Description of Procedure: The patient was brought back to the operating room and general anesthesia was induced. A Srivastava catheter was placed and clear urine was returned. Next the abdomen was prepped and draped in usual sterile fashion. An elliptical incision was marked around her former incision in the inferior abdominal wall. This was incised with a scalpel and the skin was removed. The incision was deepened with electrocautery until the inside of the hernia sac was reached. There was dark fluid without purulence that was suctioned from the hernia sac. Next with a finger I did palpate the borders of the hernia sac. I used electrocautery to surround the hernia sac and dissected free from the surrounding fat. Once the hernia sac was free from the surrounding fat and only adhesed to the fascia it was excised using electrocautery. Next the cavity was irrigated and suctioned dry and hemostasis was obtained with electrocautery. The hernia seem to be intact with no sign of recurrence. Next a 5 mm port was placed in the left upper quadrant using Visiport technique. The abdomen was insufflated to 15 mmHg. A 5 mm port was placed in the right upper and right lower quadrant and adhesions were taken down. The patient had dense adhesions to the anterior abdominal wall. The adhesions were able to be taken down and the hernia was inspected with no sign of hernia recurrence. The fascia was intact. Due to the amount of inflammation in the hernia sac I elected not to place mesh at this time as the patient had diastases and a very thin fascial wall in the midline. I believe that any trans-fascial sutures or tacks would puncture into the inflamed cavity and because contamination of the mesh. The camera and ports were removed under direct visualization. Next the cavity was irrigated once more and suctioned dry and a 15 [place] round drain was placed into the cavity. Several 3-0 Vicryl sutures were used to reapproximate the fat as to reduce dimpling. Next the incision was closed with interrupted 4-0 Monocryl sutures and Steri-Strips. The drain was sutured in with a 3-0 nylon suture. The drain was placed to bulb suction. Next all the incisions were anesthetized with Marcaine and closed with interrupted 4-0 Monocryl sutures as well as bandages. The Srivastava was removed to the end of the case and the patient tolerated the procedure well and was taken to PACU in stable condition. She will return for mesh placement once the hematoma cavity has fully healed and the drain has been removed and she does not have an inflamed cavity adjacent to the mesh. - Admit VTE Documentation VTE Mechan Device Prophylaxis: SCD's
[2017-11-14] MEDS: oxyCODONE 5 MG Tablet PO (16:14)
[2017-11-14] MEDS: Acetaminophen 325 MG Tablet 650 MG PO (21:03)
[2017-11-14] MEDS: 0.9% NaCl Peripheral Flush Adult/Peds IV (23:09)
[2017-11-14] MEDS: Docusate Sodium 100 MG Capsule 200 MG PO (23:09)
[2017-11-15 01:29] VITALS: BP 113/63; PULSE 72; RESP 16; TEMP 36.6; O2SAT 98
[2017-11-15] MEDS: oxyCODONE 5 MG Tablet PO ×2 (03:54→08:39)
[2017-11-15] MEDS: Acetaminophen 325 MG Tablet 650 MG PO (05:56)
[2017-11-15 07:30] VITALS: BP 100/57; PULSE 83; RESP 18; TEMP 36.9; O2SAT 95
[2017-11-15] MEDS: Docusate Sodium 100 MG Capsule 200 MG PO (08:39)
== END 2017-11-15 11:29 | disposition home or self-care (01) ==
LOC: MS2 19:51 → SDC 19:51
PROVIDERS: Admitting Provider Surgery; Family Provider Family Medicine; PCP Family Medicine; Visit Provider Surgery
PROC: 0WQF4ZZ Repair Abdominal Wall, Percutaneous Endoscopic Approach (ICD-10-PCS; CPT 49653; principal; 2017-11-14 12:40)
DX: K43.6 Other and unspecified ventral hernia with obstruction, without gangrene (principal); Q79.59 Other congenital malformations of abdominal wall; R73.03 Prediabetes; F41.9 Anxiety disorder, unspecified; K21.9 Gastro-esophageal reflux disease without esophagitis; Z79.899 Other long term (current) drug therapy
CPT/HCPCS: 00752; 49653; 88302; 99218; J7120; A4216; G0378; G0379; J2405

== ENCOUNTER → 2017-12-16 08:00 | Outpatient (CLI) | payer BC, SELFPAY ==
--- NOTE | 2017-12-16 08:03 | CT_ITS ---
STUDY: CT ORBITS WITH CONTRAST REASON FOR EXAM: Female, 52 years old. Right upper eyelid bump. Previous abscess of right brow. RADIATION DOSAGE (If Supplied By Facility): CTDIvol = ( 29.38 ) mGy, DLP = ( 349.11 ) mGycm TECHNIQUE: The patient was scanned in a multi detector CT scanner. Transaxial imaging was performed following the intravenous administration of 100 ml of Isovue 300 contrast material. Sagittal and coronal images were reconstructed. Individualized dose optimization techniques were used for this CT. COMPARISON: None. FINDINGS: Small subcutaneous nodule in the medial aspect of the right periorbital soft tissue. This is superficial and may represent focal scar of the previous abscess. No enhancing lesion to suspect phlegmon or liquid abscess. Normal globes. Normal intraconal spaces. Normal optic nerve sheath complex. Normal bilateral extraocular muscles. Normal lacrimal glands. Normal bilateral medial and inferior orbital hernandez. Normal bilateral maxillary bones. Normal bilateral frontozygomatic arches. Normal bilateral zygomatic temporal arches. Normal frontal sinus. Normal ethmoidal sinuses. Normal maxillary sinuses. Normal sphenoid sinuses. Normal soft tissue structures. There is no demonstrated abnormal enhancement. CT/Orb Sella Post Fossa Ear W/CON IMPRESSION: Probably an 8 mm focal scar in the subcutaneous fat of the right superior medial periorbital soft tissue from the old abscess site (series 2, images 28-29). No liquid abscess or enhancing phlegmon. Otherwise normal enhanced CT examination of the bilateral orbits. Electronically Signed: Lam Sky MD at 8:57 EDT , Service support ,
== END ==
PROVIDERS: Family Provider Family Medicine; PCP Family Medicine; Referring Provider Ophthalmology; Visit Provider Ophthalmology
DX: L02.01 Cutaneous abscess of face (principal); H00.031 Abscess of right upper eyelid
CPT/HCPCS: 70481; Q9967

== ENCOUNTER 2018-01-03 10:17 | Outpatient (RCR) | payer BC, SELFPAY | END 2018-01-24 23:59 | LOC: NS 10:17 | PROVIDERS: Family Provider Family Medicine; PCP Family Medicine; Referring Provider Family Medicine; Visit Provider Family Medicine | DX: E66.01 Morbid (severe) obesity due to excess calories (principal); Z68.43 Body mass index [BMI] 50.0-59.9, adult; Z71.3 Dietary counseling and surveillance | CPT/HCPCS: 97803; J2405 ==

== ENCOUNTER 2018-01-13 10:34 | Day surgery (SDC) | payer BC, SELFPAY ==
[2018-01-13] VITALS (7 sets, daily range): BP systolic 129–153; BP diastolic 81–95; PULSE 55–91; RESP 16–20; TEMP 36.2–37.1; O2SAT 96–100; BMI 52.9
[2018-01-13] MEDS: BUPIVACAINE LIPOSOME/PF 20 ML VIAL OPERA.SITE (12:58)
[2018-01-13] MEDS: Bupivacaine Mpf 0.5% 30 ML VIAL (14:00)
--- NOTE | 2018-01-13 14:44 | DCINST_ITS ---
Discharge Diet: Light diet - advance as tolerated Discharge Activity: Return to Normal Activity, May Not Drive - for 2-3 days or while taking narcotic pain meds., May Shower - with the bandage in place 1-2 days after surgery. Lifting Restrictions: 20 pounds for 3 weeks. Additional Activity Instructions:: Climbing stairs is fine, walking is encouraged. Sitting in bed may be uncomfortable. Sitting up using your lateral muscles (sitting up sideways) is usually more comfortable. Do not drive, work heavy equipment of sign legal documents for 24 hours. Pain medications may cause nausea, you should typically eat light foods as you take your pain medications. Pain medications may also cause constipation. If you have difficulty with this, discuss with your doctor. Call your doctor if your incision/area has: Continuous Slow Oozing, Sudden Increased Bleeding, Increased Pain/ Swelling, Increased Redness, Foul Smelling Discharge Call your doctor if you observe: Fever of 101 or Higher Suture Line Care: Avoid Pulling/Pushing, Avoid Pinching/Bending Change Dressing in (Days):: 3 - Leave steri-strips for 1 week. May protect with a guaze bandaid. Cleanse incision/area with: Keep Dressing Clean & Dry Allergies/Adverse Reactions: Allergies piperacillin [From Zosyn] Allergy (Verified 01/06/18 09:48) Unknown tazobactam [From Zosyn] Allergy (Verified 01/06/18 09:48) Unknown Tetanus Vaccines and Toxoid [Tetanus Vaccines & Toxoid] Allergy (Verified 01/06/18 09:48) Rash codeine Adverse Reaction (Verified 01/06/18 09:48) Other HEART RACING Medications to take at Discharge Magnesium 250 mg PO DAILY 02/06/17 Multivitamin [Daily Multiple Vitamin] 1 ea PO DAILY 02/06/17 Aspirin E.C. [Ecotrin] 325 mg PO DAILY@0800 01/06/18 Oxycodone [Oxyir] 5 - 15 mg PO Q4H PRN PRN 7 Days #50 tablet 01/13/18 The following prescriptions were given: Oxycodone [Oxyir] 5 - 15 mg PO Q4H PRN PRN 7 Days #50 tablet PRN Reason: Pain Primary Care Physician: Mookie Walter MD [Primary Care Provider] - Test Results: Test results from this visit will be discussed in further detail at your follow- up appointment, if applicable. Please Follow Up With: Adi Thornton MD When: Please call to schedule 2 week follow up appointment. [phone]
--- NOTE | 2018-01-13 14:44 | PCM.OPRPT ---
Problem List (1) Incarcerated ventral hernia Status: Acute Report of Operation Date of Procedure: 01/13/18 Pre-Operative Diagnosis: Ventral hernia Post-Operative Diagnosis: Recurrent ventral hernia Surgery/Procedure Performed:: Laparoscopic recurrent ventral hernia repair with mesh Description of Procedure: The patient was brought back to the operating room and general anesthesia was induced. A Srivastava catheter was placed. The abdomen was prepped and draped in the usual sterile fashion. Next a right upper quadrant incision was made and a 5 port trocar was used with the 0 degree scope to enter the abdomen and insufflated the abdomen to 15 mmHg. Next the camera was introduced into the abdomen and a transversus abdominis block was performed with Exparel and saline. This was performed laparoscopic we under direct visualization on bilateral abdominal sidewalls. Next a right lower quadrant 5 mm port was placed under direct visualization. The patient had extensive adhesions to the anterior abdominal wall including her colon. These were bluntly and sharply removed from the abdominal wall with scissors and graspers. Once the abdominal contents were from the abdominal wall a left upper quadrant 12 mm port was placed. The patient already had recurrence of her ventral hernia at the superior portion. Using a Jose Ulloa needle a 0 Prolene was placed and the hernia was reapproximated. Next a 15 cm [place] ventralight mesh with echo positioning device was introduced into the abdomen. A suture grasper is used to elevate the echo positioning device and the balloon was inflated. The mesh was then tacked in 4 quadrants with the secure strap tacker and the balloon was removed entirely through the 12 mm port. The mesh was tacked circumferentially and 2 rows. Next the 12 mm port was removed and an 0 Prolene was used to close the fascia at the site. Next the abdomen was inspected once more and appeared to be hemostatic with no injuries to the bowel. The ports were then removed under direct visualization and the air was allowed to exit the abdomen. The skin incisions were anesthetized with lidocaine and closed with 4-0 Monocryl as well as Steri-Strips and bandages. The catheter was removed at the end of the case. The patient was taken to PACU in stable condition. Grafts/Implants Used: 15 cm Ventralight mesh - Admit VTE Documentation VTE Present on Admission: No VTE Mechan Device Prophylaxis: SCD's
--- NOTE | 2018-01-13 14:52 | OP.PCM_ITS ---
Problem List (1) Incarcerated ventral hernia Status: Acute Report of Operation Date of Procedure: 01/13/18 Pre-Operative Diagnosis: Ventral hernia Post-Operative Diagnosis: Recurrent ventral hernia Surgery/Procedure Performed:: Laparoscopic recurrent ventral hernia repair with mesh Description of Procedure: The patient was brought back to the operating room and general anesthesia was in duced. A Srivastava catheter was placed. The abdomen was prepped and draped in the usual sterile fashion. Next a right upper quadrant incision was made and a 5 port trocar was used with the 0 degree scope to enter the abdomen and insufflated the abdomen to 15 mmHg. Next the camera was introduced into the abdomen and a transversus abdominis block was performed with Exparel and saline. This was performed laparoscopic we under direct visualization on bilateral abdominal sidewalls. Next a right lower quadrant 5 mm port was placed under direct visualization. The patient had extensive adhesions to the anterior abdominal wall including her colon. These were bluntly and sharply removed from the abdominal wall with scissors and graspers. Once the abdominal contents were from the abdominal wall a left upper quadrant 12 mm port was placed. The patient already had recurrence of her ventral hernia at the superior portion. Using a Jose Ulloa needle a 0 Prolene was placed and the hernia was reapproximated. Next a 15 cm ho-chunk ventralight mesh with echo positioning device was introduced into the abdomen. A suture grasper is used to elevate the echo positioning device and the balloon was inflated. The mesh was then tacked in 4 quadrants with the secure strap tacker and the balloon was removed entirely through the 12 mm port. The mesh was tacked circumferentially and 2 rows. Next the 12 mm port was removed and an 0 Prolene was used to close the fascia at the site. Next the abdomen was inspected once more and appeared to be hemostatic with no injuries to the bowel. The ports were then removed under direct visualization and the air was allowed to exit the abdomen. The skin incisions were anesthetized with lidocaine and closed with 4-0 Monocryl as well as Steri- Strips and bandages. The catheter was removed at the end of the case. The patient was taken to PACU in stable condition. Grafts/Implants Used: 15 cm Ventralight mesh - Admit VTE Documentation VTE Present on Admission: No VTE Mechan Device Prophylaxis: SCD's
[2018-01-13] MEDS: traMADol 50 MG Tablet 100 MG PO (16:14)
--- NOTE | 2018-01-13 16:22 | SUR.PHASEII ---
AT 1545, NOTIFIED IRIS NOTIFIED THAT PATIENT STATES SHE DOES NOT WANT TO TAKE OXYCODONE, ONLY TAKES THIS IF ABSOLUTELY NECESSARY. STATES SHE WANTS THIS NURSE TO GET A SCRIPT FOR TRAMADOL FROM DR SIMMONS. VERY DRAMATIC, C/O SEVERE PAIN WITH ANY MOVEMENT. WILL MONITOR FOR POSSIBLE ADMISSION IF PAIN IS NOT MANAGEABLE.
[2018-01-13] MEDS: oxyCODONE 5 MG Tablet PO (17:30)
== END 2018-01-13 18:05 | disposition home or self-care (01) ==
LOC: SDC 10:34 → AC 10:35
PROVIDERS: Family Provider Family Medicine; PCP Family Medicine; Referring Provider Surgery; Visit Provider Surgery
PROC: 0WQF4ZZ Repair Abdominal Wall, Percutaneous Endoscopic Approach (ICD-10-PCS; CPT 49652; principal; 2018-01-13 11:40)
DX: K43.6 Other and unspecified ventral hernia with obstruction, without gangrene (principal); K21.9 Gastro-esophageal reflux disease without esophagitis; Z79.82 Long term (current) use of aspirin
CPT/HCPCS: 49652; J7120

== ENCOUNTER 2018-02-05 09:36 | Outpatient (RCR) | payer BC, SELFPAY ==
[2018-01-13 10:54] VITALS: BMI 52.9
--- OUTSIDE RECORDS SUMMARY | 2018-03-24 06:39 | XMS RPT_ITS ---
:1965 Author Organization OHIP Support Name Relationship Address Phone ADI, MONE Unavailable . + [place] [address] S Unavailable Unavailable Unavailable DG AC Unavailable [address] + [place] [address] MONE OGDEN Unavailable . + [place] [address] S Unavailable Unavailable Unavailable DG, AC Unavailable [address] + [place] [address] MONE OGDEN Unavailable . + [place] [address] S Unavailable Unavailable Unavailable DG, AC Unavailable [address] + [place] [address] MONE OGDEN Unavailable Unavailable + S Unavailable Unavailable Unavailable DG, AC Unavailable [address] + [place] [address] MONE OGDEN Unavailable Unavailable + S Unavailable Unavailable Unavailable DG, AC Unavailable [address] + [place] [address] MONE OGDEN Unavailable . + [place] [address] S Unavailable Unavailable Unavailable DG, AC Unavailable [address] + [place] [address] MONE OGDEN Unavailable . + [place] [address] S Unavailable Unavailable Unavailable DG, AC Unavailable [address] + [place] [address] MONE OGDEN Unavailable Unavailable + [place] [address] S Unavailable Unavailable Unavailable DG, AC Unavailable [address] + [place] [address] ADI, MONE Unavailable . + [place] [address] S Unavailable Unavailable Unavailable DG, AC Unavailable [address] + [place] [address] ADI, MONE Unavailable . + [place] [address] S Unavailable Unavailable Unavailable DG, AC Unavailable [address] + [place] [address] ADI, MONE Unavailable . + [place] [address] S Unavailable Unavailable Unavailable DG, AC Unavailable [address] + [place] [address] ADI, MONE Unavailable Unavailable + S Unavailable Unavailable Unavailable DG, AC Unavailable [address] + [place] [address] ADI, MONE Unavailable Unavailable + S Unavailable Unavailable Unavailable DG, AC Unavailable [address] + [place] [address] ADI, MONE Unavailable . + [place] [address] S Unavailable Unavailable Unavailable DG, AC Unavailable [address] + [place] [address] ADI, MONE Unavailable . + [place] [address] S Unavailable Unavailable Unavailable DG, AC Unavailable [address] + [place] [address] ADI, MONE Unavailable . + [place] [address] S Unavailable Unavailable Unavailable DG, AC Unavailable [address] + [place] [address] ADI, MONE Unavailable . + [place] [address] S Unavailable Unavailable Unavailable DG, AC Unavailable [address] + [place] [address] ADI, MONE Unavailable Unavailable + [place] [address] S Unavailable Unavailable Unavailable DG, AC Unavailable [address] + [place] [address] ADI, MONE Unavailable . + [place] [address] S Unavailable Unavailable Unavailable DG, AC Unavailable [address] + [place] [address] ADI, MONE Unavailable . + [place] [address] S Unavailable Unavailable Unavailable DG, AC Unavailable [address] + [place] [address] ADI, MONE Unavailable . + [place] [address] S Unavailable Unavailable Unavailable DG, AC Unavailable [address] + [place] [address] ADI, MONE Unavailable . + [place] [address] S Unavailable Unavailable Unavailable DG, AC Unavailable [address] + [place] [address] ADI, MONE Unavailable . + [place] [address] S Unavailable Unavailable Unavailable DG, AC Unavailable [address] + [place] [address] ADI, MONE Unavailable . + [place] [address] S Unavailable Unavailable Unavailable DG, AC Unavailable [address] + [place] [address] ADI, MONE Unavailable . + [place] [address] S Unavailable Unavailable Unavailable DG, AC Unavailable [address] + [place] [address] ADI, MONE Unavailable Unavailable + S Unavailable Unavailable Unavailable DG, AC Unavailable [address] + [place] [address] ADI, MONE Unavailable . + [place] [address] S Unavailable Unavailable Unavailable DG, AC Unavailable [address] + [place] [address] ADI, MONE Unavailable Unavailable + S Unavailable Unavailable Unavailable DG, AC Unavailable [address] + [place] [address] ADI, MONE Unavailable Unavailable + S Unavailable Unavailable Unavailable DG, AC Unavailable [address] + [place] [address] MONE OGDEN Unavailable . + [place] [address] S Unavailable Unavailable Unavailable DG, AC Unavailable [address] + [place] [address] MONE OGDEN Unavailable . + [place] [address] S Unavailable Unavailable Unavailable DG, AC Unavailable [address] + [place] [address] MONE OGDEN Unavailable Unavailable + [place] [address] S Unavailable Unavailable Unavailable DG, AC Unavailable [address] + [place] [address] Mone Ogden Unavailable . + [place] [address] S Unavailable Unavailable Unavailable DG, AC Unavailable [address] + [place] [address] S Unavailable Unavailable Unavailable DG, AC Unavailable [address] + [place] [address] S Unavailable Unavailable Unavailable DG, AC Unavailable [address] + [place] [address] S Unavailable Unavailable Unavailable DG, AC Unavailable [address] + [place] [address] S Unavailable Unavailable Unavailable DG, AC Unavailable [address] + [place] [address] S Unavailable Unavailable Unavailable DG, AC Unavailable [address] + [place] [address] S Unavailable Unavailable Unavailable DG, AC Unavailable [address] + [place] [address] S Unavailable Unavailable Unavailable DG, AC Unavailable [address] + [place] [address] S Unavailable Unavailable Unavailable DG, AC Unavailable [address] + [place] [address] S Unavailable Unavailable Unavailable DG, AC Unavailable [address] + [place] [address] S Unavailable Unavailable Unavailable DG, AC Unavailable [address] + [place] [address] Care Team Providers Name Role Phone Felicity Bryan Admitting Unavailable SheryleriAramisic Attending Unavailable Fabricioiner, Felicity Referring Unavailable Ranney, Christopher Primary Care Unavailable Jopperi, Tonny Consulting Unavailable Fabricioiner, Felicity Consulting Unavailable Adi Thornton Attending Unavailable Ranney, Christopher Referring Unavailable Ranney, Christopher Primary Care Unavailable Ranney, Christmikier Attending Unavailable Ranney, Christopher Referring Unavailable Ranney, Christopher Primary Care Unavailable Adi Thornton Attending Unavailable Ranney, Christopher Referring Unavailable ShrinerFelicity Attending Unavailable Fabricioiner, Felicity Referring Unavailable Ranney, Christopher Primary Care Unavailable Fabricioiner, Felicity Admitting Unavailable Murphy Okeefe F Attending Unavailable Fabricioiner, Felicity Referring Unavailable Ranney, Christopher Primary Care Unavailable Jopperi, Tonny Consulting Unavailable Roberto Okeefeolas F Consulting Unavailable Randi, Felicity Admitting Unavailable Adi Thornton Attending Unavailable Fabricioiner Felicity Referring Unavailable Ranney, Christopher Primary Care Unavailable Jopperi, Tonny Consulting Unavailable Fabricioiner, Felicity Consulting Unavailable Fabricioiner, Felicity Admitting Unavailable Jopperi, Tonny Attending Unavailable Fabricioiner, Felicity Referring Unavailable Ranney, Christopher Primary Care Unavailable Fabricioiner Felicity Consulting Unavailable Carlos Vazquez Attending Unavailable Ranney, Christopher Referring Unavailable Ranney, Christopher Primary Care Unavailable Ranney, Jeromeer Attending Unavailable Ranney, Christopher Referring Unavailable Ranney, Christopher Primary Care Unavailable FabricioinerYsabele Referring Unavailable Ranney, Christopher Primary Care Unavailable FabricioinerYsabele Admitting Unavailable Jopperi, Tonny Consulting Unavailable Roberto Okeefeolas F Attending Unavailable Colin Vazquezel Attending Unavailable TaylorColinel Referring Unavailable Ranney, Christopher Primary Care Unavailable Ranney, Christmikier Attending Unavailable Ranney, Christopher Referring Unavailable Ranney, Christopher Primary Care Unavailable AbingdonColinel Attending Unavailable Ranney, Christopher Referring Unavailable Ranney, Christopher Primary Care Unavailable FabricioinerFelicity Attending Unavailable Shriner, Felicity Referring Unavailable Ranney, Christopher Primary Care Unavailable FabricioinerYsabele Attending Unavailable Ranney, Christopher Attending Unavailable Ranney, Christopher Referring Unavailable Ranney, Christopher Primary Care Unavailable Wolf, Jef Attending Unavailable Wolf, Jef Referring Unavailable Ranney, Christopher Primary Care Unavailable WolfGuerreroy Attending Unavailable Wolf, Jef Referring Unavailable Ranney, Christopher Primary Care Unavailable Ranney, Christopher Attending Unavailable Ranney, Christopher Referring Unavailable Ranney, Christopher Primary Care Unavailable Ranney, Christopher Attending Unavailable Ranney, Christopher Referring Unavailable Ranney, Christopher Primary Care Unavailable Ranney, Christopher Attending Unavailable Ranney, Christopher Referring Unavailable Ranney, Christopher Primary Care Unavailable Karen Humphreyent Attending Unavailable Taibour, Karenent Referring Unavailable Ranney, Christopher Primary Care Unavailable Ranney, Christopher Attending Unavailable Ranney, Christopher Referring Unavailable Ranney, Christopher Primary Care Unavailable Ranney, Christopher Attending Unavailable Ranney, Christopher Referring Unavailable Ranney, Christopher Primary Care Unavailable Adi Thornton Attending Unavailable Adi Thornton Referring Unavailable Ranney, Christopher Primary Care Unavailable Adi Thornton Consulting Unavailable Adi Thornton Attending Unavailable Adi Thornton Referring Unavailable Ranney, Christopher Primary Care Unavailable Adi Thornton Attending Unavailable Adi Thornton Attending Unavailable Ranney, Christopher Referring Unavailable Adi Thornton Attending Unavailable Ranney, Christopher Referring Unavailable Ranney, Christopher Attending Unavailable Ranney, Christopher Referring Unavailable Ranney, Christopher Primary Care Unavailable Sol Carroll PA-C Attending Unavailable Ranney, Christopher Referring Unavailable Adi Thornton Attending Unavailable Adi Thornton Referring Unavailable Ranney, Christopher Primary Care Unavailable Adi Thornton Consulting Unavailable Kory Hackett Attending Unavailable Adi Thornton Attending Unavailable Ranney, Christopher Referring Unavailable Ranney, Christopher Primary Care Unavailable Adi Thornton Attending Unavailable Ranney, Christopher Referring Unavailable CalabrAdi desouza Attending Unavailable Ranney, Christopher Referring Unavailable Ranney, Christopher Primary Care Unavailable CalAdi weston Attending Unavailable Ranney, Christopher Primary Care Unavailable Adi Thornton Referring Unavailable Adi Thornton Attending Unavailable Adi Thornton Referring Unavailable Ranney, Christopher Primary Care Unavailable Adi Thornton Admitting Unavailable Siders, Brooklyn C Attending Unavailable Adi Thornton Attending Unavailable Adan Walter Referring Unavailable Jose Angel, Christmikier Primary Care Unavailable Adi Thornton Attending Unavailable Adan Walter Referring Unavailable Jose Angel, Christopher Primary Care Unavailable Herb Ogden Attending Unavailable Herb Ogden Referring Unavailable Jose Angel, Christsocorro Primary Care Unavailable PROBLEMS PROBLEMS DATE TYPE CONDITION / CODE ATTENDING STATUS SOURCE 03/06/2018 Unknown E66.01 - Morbid Jose Angel, Active [place] (severe) obesity due [facility] to excess calories / Hospital E66.01(ICD-10) Repository 01/29/2018 Unknown Z98.890 - Other Norberto, Active [place] specified [facility] postprocedural Hospital states / Repository Z98.890(ICD-10) 01/29/2018 Unknown Z87.19 - Personal Norberto, Active [place] history of other [facility] diseases of the Hospital digestive system / Repository Z87.19(ICD-10) 01/13/2018 Unknown K43.6 - Other and Archierolandolyly, Active [place] unspecified ventral [facility] hernia with Hospital obstruction, without Repository gangrene / K43.6(ICD-10) 11/01/2017 Unknown N92.6 - Irregular Kotsonis, Active [place] menstruation, [facility] Community unspecified / Hospital N92.6(ICD-10) Repository 11/01/2017 Unknown S36.509A - Kotsonis, Active [place] Unspecified injury [facility] of unspecified part [facility], initial Repository encounter / S36.509A(ICD-10) 11/14/2017 Unknown K91.72 - Accidental Cebul, Kory Active [place] puncture and Community laceration of a Hospital digestive system Repository organ or structure during other procedure / K91.72(ICD-10) 09/18/2017 Unknown Z01.818 - Encounter Jose Angel, Active [place] for other [facility] preprocedural Hospital examination / Repository Z01.818(ICD-10) 09/10/2017 Unknown K43.2 - Incisional Abingdon, Carlos Active [place] hernia without Community obstruction or Hospital gangrene / Repository K43.2(ICD-10) 07/26/2017 Unknown M17.11 - Unilateral Jef Bloom Active [place] primary [facility] osteoarthritis, Hospital right knee / Repository M17.11(ICD-10) 07/05/2017 Unknown N92.4 - Excessive Felicity Bryan Active [place] bleeding in the [facility] premenopausal period Hospital / N92.4(ICD-10) Repository 07/05/2017 Unknown N93.8 - Other Felicity Bryan Active [place] specified abnormal Community uterine and vaginal Hospital bleeding / Repository N93.8(ICD-10) 06/24/2017 Unknown G89.18 - Other acute Jef Bloom Active [place] postprocedural pain [facility] / G89.18(ICD-10) Hospital Repository 05/07/2017 Unknown S46.812D - Strain of Jose AngelClifton other [facility], Christopher [facility] fascia and tendons Hospital at shoulder and Repository upper arm level, left arm, subsequent encounter / S46.812D(ICD-10) PROCEDURES PROCEDURES No Procedure Records FoundRESULTS RESULTS SURGERY VISIT REPORT Observed: 01/29/2018 Status: F Source: [place] 10:32 AM [facility] REPOSITORY [facility] [place] [facility] [address] [place] [address]. [address] [place] [address] OFFICE VISIT Date of Service: 01/29/18 MR#: [id number] Acct: [id number] Name: JUNIOR CONTE Rep #: [id number] : 1965 Provider: Adi Thornton MD Age/Sex: 52/F Location: [facility] Status: Signed Intake Intake Visit Reasons: 2 WK F/U Hernia Repair 01/13 Chief Complaint: no void after surgery, stubbs Administrative Resources Associate Required: No Is patient in pain?: No Allergies piperacillin [From Zosyn] Allergy (Verified 01/29/18 10:17) Unknown tazobactam [From Zosyn] Allergy (Verified 01/29/18 10:17) Unknown Tetanus Vaccines and Toxoid [Tetanus Vaccines AND Toxoid] Allergy (Verified 01/29/18 10:17) Rash codeine Adverse Reaction (Verified 01/29/18 10:17) Other Medications Magnesium 250 mg PO DAILY 02/06/17 [History Confirmed 01/29/18] Multivitamin [Daily Multiple Vitamin] 1 ea PO DAILY 02/06/17 [History Confirmed 01/29/18] Aspirin E.C. [Ecotrin] 325 mg PO DAILY@0800 01/06/18 [History Confirmed 01/29/18] Subjective Details: Patient has no complaints and she rates her pain a 1 out of 10. She says she is having a lot of fatigue. She recently started using a sleep apnea mask for her sleep apnea Objective Details: Patient's incisions are healing well. She is having no bulging at the prior incisional hernia site. Assessment AND Plan Problems 1. S/P repair of ventral hernia Z98.890; Z87.19 11/14/17 Plan 1. Patient is doing well after ventral hernia repair with mesh. Recommend 2 more weeks of light duty and then she can return to activity as tolerated. Follow-up as needed. Adi Thornton MD Pager: [facility] [address] [place] [address], [address] [place] [address] Office: Coding Level of Care Code Global Post Op Diagnoses S/P repair of ventral hernia Z98.890; Z87.19 01/29/18 1032 <Electronically signed by Adi Thornton MD> Date Adi Thornton MD Cosign Signature: Date (if applicable) CC: Adan Walter MD OPERATIVE REPORT Observed: 01/13/2018 Status: F Source: [place] 2:52 PM [facility] REPOSITORY [facility] Medical Records Department [address] [place] [id number] Operative Report 01/13/18 1444 MR#: [id number] Acct: [id number] Name: JUNIOR CONTE Rep #: [id number] : 1965 52 From: Adi Thornton MD PCP: Adan Walter MD Status: REG [facility] Y Location: [address] Problem List (1) Incarcerated ventral hernia Status: Acute Report of Operation Date of Procedure: 01/13/18 Pre-Operative Diagnosis: Ventral hernia Post-Operative Diagnosis: Recurrent ventral hernia Surgery/Procedure Performed:: Laparoscopic recurrent ventral hernia repair with mesh Description of Procedure: The patient was brought back to the operating room and general anesthesia was induced. A Srivastava catheter was placed. The abdomen was prepped and draped in the usual sterile fashion. Next a right upper quadrant incision was made and a 5 port trocar was used with the 0 degree scope to enter the abdomen and insufflated the abdomen to 15 mmHg. Next the camera was introduced into the abdomen and a transversus abdominis block was performed with Exparel and saline. This was performed laparoscopic we under direct visualization on bilateral abdominal sidewalls. Next a right lower quadrant 5 mm port was placed under direct visualization. The patient had extensive adhesions to the anterior abdominal wall including her colon. These were bluntly and sharply removed from the abdominal wall with scissors and graspers. Once the abdominal contents were from the abdominal wall a left upper quadrant 12 mm port was placed. The patient already had recurrence of her ventral hernia at the superior portion. Using a Jose Ulloa needle a 0 Prolene was placed and the hernia was reapproximated. Next a 15 cm [place] ventralight mesh with echo positioning device was introduced into the abdomen. A suture grasper is used to elevate the echo positioning device and the balloon was inflated. The mesh was then tacked in 4 quadrants with the secure strap tacker and the balloon was removed entirely through the 12 mm port. The mesh was tacked circumferentially and 2 rows. Next the 12 mm port was removed and an 0 Prolene was used to close the fascia at the site. Next the abdomen was inspected once more and appeared to be hemostatic with no injuries to the bowel. The ports were then removed under direct visualization and the air was allowed to exit the abdomen. The skin incisions were anesthetized with lidocaine and closed with 4-0 Monocryl as well as Steri-Strips and bandages. The catheter was removed at the end of the case. The patient was taken to PACU in stable condition. Grafts/Implants Used: 15 cm Ventralight mesh - Admit VTE Documentation VTE Present on Admission: No VTE Mechan Device Prophylaxis: SCD's 01/13/18 7515 <Electronically signed by Adi Thornton MD> Date Adi Thornton MD CC: Adi Thornton MD; Adan Walter MD Signed DISCHARGE INSTRUCTION Observed: 01/13/2018 Status: F Source: [place] 2:44 PM [facility] REPOSITORY [facility] Medical Records Department [address] [place] [address] Instructions for Home/Discharge Instructions 01/13/18 1443 MR#: [id number] Acct: [id number] Name: JUNIOR CONTE Rep #: [id number] : 1965 52 From: Adi Thornton MD PCP: Adan Walter MD Status: REG [facility] Discharge Diet: Light diet - advance as tolerated Discharge Activity: Return to Normal Activity, May Not Drive - for 2-3 days or while taking narcotic pain meds., May Shower - with the bandage in place 1-2 days after surgery. Lifting Restrictions: 20 pounds for 3 weeks. Additional Activity Instructions:: Climbing stairs is fine, walking is encouraged. Sitting in bed may be uncomfortable. Sitting up using your lateral muscles (sitting up sideways) is usually more comfortable. Do not drive, work heavy equipment of sign legal documents for 24 hours. Pain medications may cause nausea, you should typically eat light foods as you take your pain medications. Pain medications may also cause constipation. If you have difficulty with this, discuss with your doctor. Call your doctor if your incision/area has: Continuous Slow Oozing, Sudden Increased Bleeding, Increased Pain/ Swelling, Increased Redness, Foul Smelling Discharge Call your doctor if you observe: Fever of 101 or Higher Suture Line Care: Avoid Pulling/Pushing, Avoid Pinching/Bending Change Dressing in (Days):: 3 - Leave steri-strips for 1 week. May protect with a guaze bandaid. Cleanse incision/area with: Keep Dressing Clean AND Dry Allergies/Adverse Reactions: Allergies piperacillin [From Zosyn] Allergy (Verified 01/06/18 09:48) Unknown tazobactam [From Zosyn] Allergy (Verified 01/06/18 09:48) Unknown Tetanus Vaccines and Toxoid [Tetanus Vaccines AND Toxoid] Allergy (Verified 01/06/18 09:48) Rash codeine Adverse Reaction (Verified 01/06/18 09:48) Other HEART RACING Medications to take at Discharge Magnesium 250 mg PO DAILY 02/06/17 Multivitamin [Daily Multiple Vitamin] 1 ea PO DAILY 02/06/17 Aspirin E.C. [Ecotrin] 325 mg PO DAILY@0800 01/06/18 Oxycodone [Oxyir] 5 - 15 mg PO Q4H PRN PRN 7 Days #50 tablet 01/13/18 The following prescriptions were given: Oxycodone [Oxyir] 5 - 15 mg PO Q4H PRN PRN 7 Days #50 tablet PRN Reason: Pain Primary Care Physician: Mookie Walter MD [Primary Care Provider] - Test Results: Test results from this visit will be discussed in further detail at your follow-up appointment, if applicable. Please Follow Up With: Adi Thornton MD When: Please call to schedule 2 week follow up appointment. [phone] 01/13/18 1442 <Electronically signed by Adi Thornton MD> Date Adi Thornton MD CC: Adan Walter MD SURGERY VISIT REPORT Observed: 12/18/2017 Status: F Source: [place] 8:54 AM [facility] [address] [place] [address] [address] [place] [address] OFFICE VISIT Date of Service: 12/17/17 MR#: [id number] Acct: [id number] Name: JUNIOR CONTE Rep #: [id number] : 1965 Provider: Adi Thornton MD Age/Sex: 52/F Location: [facility] Status: Signed Intake Intake Visit Reasons: 1 wk FU Lap Ventral Hernia Mesh TC 11/14 Chief Complaint: no void after surgery, stubbs Administrative Resources Associate Required: No Is patient in pain?: No Allergies piperacillin [From Zosyn] Allergy (Verified 12/17/17 13:12) Unknown tazobactam [From Zosyn] Allergy (Verified 12/17/17 13:12) Unknown Tetanus Vaccines and Toxoid [Tetanus Vaccines AND Toxoid] Allergy (Verified 12/17/17 13:12) Rash codeine Adverse Reaction (Verified 12/17/17 13:12) Other Medications Magnesium 250 mg PO DAILY 02/06/17 [History Confirmed 12/17/17] Multivitamin [Daily Multiple Vitamin] 1 ea PO DAILY 02/06/17 [History Confirmed 12/17/17] Docusate Sodium [Colace] 100 mg PO BID #30 cap 10/18/17 [Rx Confirmed 12/17/17] Subjective Details: The patient is doing well. She has no complaints since her seroma drainage last week. Objective Details: Abdomen is soft, nontender, nondistended. There is no sign of inflammation and her incisions are healed well. Assessment AND Plan Problems 1. Incarcerated ventral hernia K43.6 Plan 1. The patient had a large ventral hernia which was repaired primarily due to the contaminated nature of the surgery. She returned to surgery for resection of an infected and inflamed hernia sac. At this time she appears to be free of any infection. I still recommend that the patient have mesh placed intra-abdominally to buttress the repair to reduce the risk of recurrence. I believe she has no infections at this time and the surgery is indicated. I did explain the risks including but not limited to bleeding, infection, injury to bowels or abdominal structures, wound infection and mesh infection. I explained that if there is any injury to the bowel I would abort surgery not place mesh. I also offered her nonoperative management. I explained that she could leave the hernia as is but the risk of recurrence is significant we high without mesh reinforcement. 2. At this time the patient would like to proceed with mesh placement. I will place for laparoscopic mesh placement in December. Adi Thornton MD Pager: [facility] [address] [place] [address], [address] [place] [address] Office: Coding Level of Care Code Global Post Op Diagnoses Incarcerated ventral hernia K43.6 12/18/17 0854 <Electronically signed by Adi Thornton MD> Date Adi Thornton MD [facility] Signature: Date (if applicable) CC: Felicity Bryan MD ORB SELLA POST Observed: 12/16/2017 Status: F Source: [place] FOSSA EAR W/CON 8:04 AM [facility] REPOSITORY [facility] Imaging Services [address] [place] [address] Orb Sella Post Fossa Ear W/CON MR#: [id number] Acct: [id number] Name: JUNIOR CONTE Rep #: [id number] : 1965 F 52 From: Lam Sky MD PCP: Adan Walter MD Status: REG CLI Study: Orb Sella Post Fossa Ear W/CON Date of Exam: 12/16/17 Exam# [id number] Ordering Dr: Herb Ogden MD STUDY: CT ORBITS WITH CONTRAST REASON FOR EXAM: Female, 52 years old. Right upper eyelid bump. Previous abscess of right brow. RADIATION DOSAGE (If Supplied By Facility): CTDIvol = ( 29.38 ) mGy, DLP = ( 349.11 ) mGycm TECHNIQUE: The patient was scanned in a multi detector CT scanner. Transaxial imaging was performed following the intravenous administration of 100 ml of Isovue 300 contrast material. Sagittal and coronal images were reconstructed. Individualized dose optimization techniques were used for this CT. COMPARISON: None. FINDINGS: Small subcutaneous nodule in the medial aspect of the right periorbital soft tissue. This is superficial and may represent focal scar of the previous abscess. No enhancing lesion to suspect phlegmon or liquid abscess. Normal globes. Normal intraconal spaces. Normal optic nerve sheath complex. Normal bilateral extraocular muscles. Normal lacrimal glands. Normal bilateral medial and inferior orbital hernandez. Normal bilateral maxillary bones. Normal bilateral frontozygomatic arches. Normal bilateral zygomatic temporal arches. Normal frontal sinus. Normal ethmoidal sinuses. Normal maxillary sinuses. Normal sphenoid sinuses. Normal soft tissue structures. There is no demonstrated abnormal enhancement. CT/Orb Sella Post Fossa Ear W/CON IMPRESSION: Probably an 8 mm focal scar in the subcutaneous fat of the right superior medial periorbital soft tissue from the old abscess site (series 2, images 28-29). No liquid abscess or enhancing phlegmon. Otherwise normal enhanced CT examination of the bilateral orbits. Electronically Signed: Lam Sky MD at 8:57 EDT , Service support , CC: Adan Walter MD; Herb Ogden MD Production Control Expediter: Signed SURGERY VISIT REPORT Observed: 12/04/2017 Status: F Source: [place] 10:24 AM [facility] [address] [place] [address]. [address] [place] [address] OFFICE VISIT Date of Service: 12/04/17 MR#: [id number] Acct: [id number] Name: JUNIOR CONTE Rep #: [id number] : 1965 Provider: Adi Thornton MD Age/Sex: 52/F Location: [facility] Status: Signed Intake Intake Visit Reasons: recheck abdomen Chief Complaint: no void after surgery, Administrative Resources Associate Required: No Is patient in pain?: Yes (abdomen) Pain scale (1-10): 5 Allergies piperacillin [From Zosyn] Allergy (Verified 12/04/17 08:42) Unknown tazobactam [From Zosyn] Allergy (Verified 12/04/17 08:42) Unknown Tetanus Vaccines and Toxoid [Tetanus Vaccines AND Toxoid] Allergy (Verified 12/04/17 08:42) Rash codeine Adverse Reaction (Verified 12/04/17 08:42) Other Medications Magnesium 250 mg PO DAILY 02/06/17 [History Confirmed 12/04/17] Multivitamin [Daily Multiple Vitamin] 1 ea PO DAILY 02/06/17 [History Confirmed 12/04/17] Docusate Sodium [Colace] 100 mg PO BID #30 cap 10/18/17 [Rx Confirmed 12/04/17] Subjective Details: Patient is complaining of some pain right of the umbilicus. There is also some bulging. Objective Details: I performed an ultrasound exam of the abdominal wall. The patient does have a seroma in the subcutaneous fat just right of the incision. Assessment AND Plan Problems 1. Seroma after procedure Plan 1. The patient has a seroma at her former hernia sac resection site. Her drain was recently removed. After explained the risks of infection and bleeding I anesthetized the area with lidocaine and aspirated the seroma cavity. This returned to 120 cc of serous fluid. The cavity collapsed completely. The patient feels relief. 2. Follow-up in 2 weeks. There is recurrence of the seroma I will drain it again. If there is any infection I will start her on antibiotics. Once the seroma has completely resolved I will plan on taking her back to surgery for mesh placement. Adi Thornton MD Pager: [facility] [address] [place] [address] [address] [place] [address] Office: Coding Level of Care Code Global Post Op Diagnoses Seroma after procedure 12/04/17 1024 <Electronically signed by Adi Thornton MD> Date Adi Thornton MD [facility] Signature: Date (if applicable) CC: Adan Walter MD SURGERY VISIT REPORT Observed: 11/28/2017 Status: F Source: [place] 10:58 AM [facility] REPOSITORY [address] [place], [place] [address] OFFICE VISIT Date of Service: 11/28/17 MR#: [id number] Acct: [id number] Name: JUNIOR CONTE Rep #: [id number] : 1965 Provider: Adi Thornton MD Age/Sex: 52/F Location: [facility] Status: Signed Intake Intake Visit Reasons: 1 wk FU Lap Ventral Hernia Mesh TC 11/14 Administrative Resources Associate Required: No Is patient in pain?: No (Some soreness) Allergies piperacillin [From Zosyn] Allergy (Verified 11/28/17 10:13) Unknown tazobactam [From Zosyn] Allergy (Verified 11/28/17 10:13) Unknown Tetanus Vaccines and Toxoid [Tetanus Vaccines AND Toxoid] Allergy (Verified 11/28/17 10:13) Rash codeine Adverse Reaction (Verified 11/28/17 10:13) Other Medications Magnesium 250 mg PO DAILY 02/06/17 [History Confirmed 11/28/17] Multivitamin [Daily Multiple Vitamin] 1 ea PO DAILY 02/06/17 [History Confirmed 11/28/17] Docusate Sodium [Colace] 100 mg PO BID #30 cap 10/18/17 [Rx Confirmed 11/28/17] Subjective Details: Patient is doing well but only complaining of pain at the drain site Objective Details: Incision is healed well with no erythema or ecchymosis. SUMMER drainage is serous Assessment AND Plan Problems 1. Incarcerated ventral hernia K43.6 Plan 1. Patient is 2 weeks status post excision of inflamed hernia sac and hematoma. Her SUMMER is serous and draining less than 30 cc a day and I did remove it. The patient tolerated the procedure well. 2. Follow-up in 2 weeks. As long as her pain is improving and she is showing no signs of infection I will schedule her for laparoscopy with mesh placement in December. Adi Thornton MD Pager: [facility] [address] [place] [address], [address] [place] [address] Office: Coding Level of Care Code Global Post Op Diagnoses Incarcerated ventral hernia K43.6 11/28/17 1058 <Electronically signed by Adi Thornton MD> Date Adi Thornton MD Cosigner Signature: Date (if applicable) CC: Felicity Bryan MD; Adan Walter MD SURGERY VISIT REPORT Observed: 11/21/2017 Status: F Source: [place] 3:51 PM [facility] REPOSITORY [facility] [address] [place] [address] OFFICE VISIT Date of Service: 11/21/17 MR#: [id number] Acct: [id number] Name: JUNIOR CONTE Rep #: [id number] : 1965 Provider: Sol Carroll PA-C Age/Sex: 52/F Location: [facility] Status: Signed Intake Intake Visit Reasons: PO Lap Ventral Hernia Mesh TC 11/14 Chief Complaint: no void after surgery, stubbs Administrative Resources Associate Required: No Is patient in pain?: Yes (at incision) Pain scale (1-10): 2 Allergies piperacillin [From Zosyn] Allergy (Verified 11/21/17 13:04) Unknown tazobactam [From Zosyn] Allergy (Verified 11/21/17 13:04) Unknown Tetanus Vaccines and Toxoid [Tetanus Vaccines AND Toxoid] Allergy (Verified 11/21/17 13:04) Rash codeine Adverse Reaction (Verified 11/21/17 13:04) Other Medications Magnesium 250 mg PO DAILY 02/06/17 [History Confirmed 11/21/17] Multivitamin [Daily Multiple Vitamin] 1 ea PO DAILY 02/06/17 [History Confirmed 11/21/17] Docusate Sodium [Colace] 100 mg PO BID #30 cap 10/18/17 [Rx Confirmed 11/21/17] Subjective Details: Patient is a 52 y/o female I am following for a ventral hernia. Dr. Thornton performed an evacuation of an infected hematoma. SUMMER drain in place. She notes 25 cc over the last 12 hours. Patient notes intermittent abdominal pain. Sharp at times. She is concern when she can return to work. 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 She is concerned about the length of time she will need to have her drain in place. She would like to have her hernia surgery with mesh this year because her deductible doubles next year. Patient denies change in bowel habits. Objective Details: Abdomen- obese, SUMMER drain intact. SA fluid noted. Abdomen soft. Incisions c/d/i. No erythema noted. Assessment AND Plan Problems 1. Ventral hernia K43.9 Plan - Follow-up in [address] Thornton - SUMMER intact Coding Level of Care Code Global Post Op Diagnoses Ventral hernia K43.9 11/21/17 1551 <Electronically signed by Sol Carroll PA-C> Date Sol Carroll PA-C Cosigner Signature: Date (if applicable) CC: OPERATIVE REPORT Observed: 11/14/2017 Status: F Source: [place] 2:58 PM [facility] REPOSITORY [facility] Medical Records Department [address] [place] [address] Operative Report 11/14/17 1453 MR#: [id number] Acct: [id number] Name: JUNIOR CONTE Rep #: [id number] : 1965 52 From: Adi Thornton MD PCP: Adan Walter MD Status: REG [facility] Y Location: [place] [address] Problem List (1) Incarcerated ventral hernia Status: Acute Report of Operation Date of Procedure: 11/14/17 Pre-Operative Diagnosis: 1. Inflamed hernia sac with seroma. 2. History of ventral hernia repair without mesh Post-Operative Diagnosis: 1. Inflamed hernia sac with hematoma. 2. Intra-abdominal adhesions. 3. Diastases recti Surgery/Procedure Performed:: 1. Excision of inflamed hernia sac and removal of hematoma. 2. Exploratory laparoscopy with takedown of adhesions Specimen's removed: Hernia sac Drains: SUMMER to bulb suction Estimated Blood Loss (mL): 200 Description of Procedure: The patient was brought back to the operating room and general anesthesia was induced. A Srivastava catheter was placed and clear urine was returned. Next the abdomen was prepped and draped in usual sterile fashion. An elliptical incision was marked around her former incision in the inferior abdominal wall. This was incised with a scalpel and the skin was removed. The incision was deepened with electrocautery until the inside of the hernia sac was reached. There was dark fluid without purulence that was suctioned from the hernia sac. Next with a finger I did palpate the borders of the hernia sac. I used electrocautery to surround the hernia sac and dissected free from the surrounding fat. Once the hernia sac was free from the surrounding fat and only adhesed to the fascia it was excised using electrocautery. Next the cavity was irrigated and suctioned dry and hemostasis was obtained with electrocautery. The hernia seem to be intact with no sign of recurrence. Next a 5 mm port was placed in the left upper quadrant using Visiport technique. The abdomen was insufflated to 15 mmHg. A 5 mm port was placed in the right upper and right lower quadrant and adhesions were taken down. The patient had dense adhesions to the anterior abdominal wall. The adhesions were able to be taken down and the hernia was inspected with no sign of hernia recurrence. The fascia was intact. Due to the amount of inflammation in the hernia sac I elected not to place mesh at this time as the patient had diastases and a very thin fascial wall in the midline. I believe that any trans-fascial sutures or tacks would puncture into the inflamed cavity and because contamination of the mesh. The camera and ports were removed under direct visualization. Next the cavity was irrigated once more and suctioned dry and a 15 Algerian round drain was placed into the cavity. Several 3-0 Vicryl sutures were used to reapproximate the fat as to reduce dimpling. Next the incision was closed with interrupted 4- 0 Monocryl sutures and Steri-Strips. The drain was sutured in with a 3-0 nylon suture. The drain was placed to bulb suction. Next all the incisions were anesthetized with Marcaine and closed with interrupted 4-0 Monocryl sutures as well as bandages. The Srivastava was removed to the end of the case and the patient tolerated the procedure well and was taken to PACU in stable condition. She will return for mesh placement once the hematoma cavity has fully healed and the drain has been removed and she does not have an inflamed cavity adjacent to the mesh. - Admit VTE Documentation VTE Mechan Device Prophylaxis: SCD's 11/14/17 1458 <Electronically signed by Adi Thornton MD> Date Adi Thornton MD CC: Felicity Bryan MD; Adi Thornton MD; Adan Walter MD Signed DISCHARGE INSTRUCTION Observed: 11/14/2017 Status: F Source: [place] 2:51 PM [facility] REPOSITORY [facility] Medical Records Department [address] [place] [address] Instructions for Home/Discharge Instructions 11/14/17 1449 MR#: [id number] Acct: [id number] Name: JUNIOR CONTE Rep #: [id number] : 1965 52 From: Adi Thornton MD PCP: Adan Walter MD Status: REG [facility] Discharge Diet: Light diet - advance as tolerated Discharge Activity: Return to Normal Activity, May Not Drive - for 2-3 days or while taking narcotic pain meds., May Shower - with the bandage in place 1-2 days after surgery. Lifting Restrictions: 20 pounds Additional Activity Instructions:: Climbing stairs is fine, walking is encouraged. Sitting in bed may be uncomfortable. Sitting up using your lateral muscles (sitting up sideways) is usually more comfortable. Do not drive, work heavy equipment of sign legal documents for 24 hours. Pain medications may cause nausea, you should typically eat light foods as you take your pain medications. Pain medications may also cause constipation. If you have difficulty with this, discuss with your doctor. Call your doctor if your incision/area has: Continuous Slow Oozing, Sudden Increased Bleeding, Increased Pain/ Swelling, Increased Redness, Foul Smelling Discharge Call your doctor if you observe: Fever of 101 or Higher Suture Line Care: Avoid Pulling/Pushing, Avoid Pinching/Bending Change Dressing in (Days):: 3 - Leave steri-strips for 1 week. May protect with a guaze bandaid. Cleanse incision/area with: Keep Dressing Clean AND Dry Drain: Suction Additional Dressing/Incision Instructions:: Record daily Drainage output amount Allergies/Adverse Reactions: Allergies piperacillin [From Zosyn] Allergy (Verified 11/13/17 11:36) Unknown tazobactam [From Zosyn] Allergy (Verified 11/13/17 11:36) Unknown Tetanus Vaccines and Toxoid [Tetanus Vaccines AND Toxoid] Allergy (Verified 11/01/17 13:46) Rash codeine Adverse Reaction (Verified 11/01/17 13:46) Other HEART RACING Medications to take at Discharge Magnesium 250 mg PO DAILY 02/06/17 Multivitamin [Daily Multiple Vitamin] 1 ea PO DAILY 02/06/17 Docusate Sodium [Colace] 100 mg PO BID #30 cap 10/18/17 Oxycodone [Oxyir] 5 mg PO Q4H PRN PRN 7 Days #30 tab 10/18/17 Oxycodone [Oxyir] 5 - 10 mg PO Q4H PRN PRN 7 Days #50 tablet 11/14/17 The following prescriptions were given: Oxycodone [Oxyir] 5 - 10 mg PO Q4H PRN PRN 7 Days #50 tablet PRN Reason: Pain Primary Care Physician: Mookie Walter MD [Primary Care Provider] - Test Results: Test results from this visit will be discussed in further detail at your follow-up appointment, if applicable. Please Follow Up With: Adi Thornton MD When: Please call to schedule 1 week follow up appointment. [phone] 11/14/17 3577 <Electronically signed by Adi Thornton MD> Date Adi Thornton MD CC: Adan Walter MD HERNIA Observed: 11/14/2017 Status: F Source: [place] 1:00 PM [facility] REPOSITORY Patient: JUNIOR CONTE : 1965 (52/F) Acct Num: [id number] Phys: Adi Thornton MD Unit Num: [id number] Loc: MS2 [id number] Specimen: [id number] Received: 11/15/17 - 0816 Spec Type: Hernia TISSUES TISSUES: HERNIA GROSS DESCRIPTION Received in fixative is one container labeled with the patient's name and designated hernia sac. The specimen consists of three variable sized pieces of congested and hemorrhagic soft tissue measuring in aggregate 14 x 9 x 4 cm. Sections do not reveal any mass lesion. Sections reveal focally congested and hemorrhagic cut surfaces. Diamond Setter Apprentice sections are submitted in three cassettes. / SJ:rere 11/15/17 TC:2 CPT: 66276 HEADER OPERATION: Laparoscopic ventral hernia repair with mesh PRE-OP DIAGNOSIS: Ventral hernia TISSUE SUBMITTED: Hernia sac MICROSCOPIC DESCRIPTION Slides are reviewed. MICROSCOPIC DIAGNOSIS Hernia sac, herniorrhaphy: Fibrofatty tissue with acute and chronic inflammation, granulation, vascular congestion, fibrosis and focal fat necrosis. AM:rere 11/18/17 Signed [place] [facility] 11/18/17 <signature on file> Performed By: #### PHERN #### [facility] [address] [place] [address]. [place], [address] SURGERY VISIT REPORT Observed: 11/04/2017 Status: F Source: [place] 4:29 PM [facility] REPOSITORY [facility] [address] [place] [address]. [address] [place] [address] OFFICE VISIT Date of Service: 11/04/17 MR#: [id number] Acct: [id number] Name: DGJUNIOR L Rep #: [id number] : 1965 Provider: Adi Thornton MD Age/Sex: 52/F Location: [facility] Status: Signed Intake Intake Visit Reasons: 1 wk fu Chief Complaint: drain seroma Allergies Tetanus Vaccines and Toxoid [Tetanus Vaccines AND Toxoid] Allergy (Verified 11/01/17 13:46) Rash codeine Adverse Reaction (Verified 11/01/17 13:46) Other Medications Magnesium 250 mg PO DAILY 02/06/17 [History Confirmed 11/01/17] Multivitamin [Daily Multiple Vitamin] 1 ea PO DAILY 02/06/17 [History Confirmed 11/01/17] Docusate Sodium [Colace] 100 mg PO BID #30 cap 10/18/17 [Rx Confirmed 11/01/17] Oxycodone [Oxyir] 5 mg PO Q4H PRN PRN 7 Days #30 tab 10/18/17 [Rx Confirmed 11/01/17] Amoxicillin/Potassium Clav [Augmentin 875-125 Tablet] 1 ea PO BID #20 tab 10/28/17 [Rx Confirmed 11/01/17] Subjective Details: Patient reports she has has been doing well. she does not have any pain in the area and she reports the drainage has been slowing down. Objective Details: The patient's abdomen is soft with no erythema or purulence. Assessment AND Plan Problems 1. Incarcerated ventral hernia K43.6 Plan 1. The patient's hematoma seems to be drained at her drainage in her SUMMER is decreasing. I removed her SUMMER drain and closed her incision with interrupted 3-0 nylon sutures. She will follow-up with me on Saturday for suture removal and to check on the wound. I have delayed her ventral hernia repair until next week to allow the wound to heal and to ensure that it is not infected before place mesh in her abdomen. Adi Thornton MD Pager: [facility] Surgical [address] [address] Office: Coding Level of Care Code Global Post Op Diagnoses Incarcerated ventral hernia K43.6 11/04/17 4499 <Electronically signed by Adi Thornton MD> Date Adi Thornton MD Cosigner Signature: Date (if applicable) CC: Adan Walter MD SURGERY VISIT REPORT Observed: 11/04/2017 Status: F Source: [place] 12:59 PM [facility] REPOSITORY [address] [place] [address] OFFICE VISIT Date of Service: 11/01/17 MR#: [id number] Acct: [id number] Name: JUNIOR CONTE Rep #: [id number] : 1965 Provider: Adi Thornton MD Age/Sex: 52/F Location: [facility] Status: Signed Intake Intake Visit Reasons: 1 wk fu Chief Complaint: drain seroma Administrative Resources Associate Required: No Is patient in pain?: No Allergies Tetanus Vaccines and Toxoid [Tetanus Vaccines AND Toxoid] Allergy (Verified 11/01/17 13:46) Rash codeine Adverse Reaction (Verified 11/01/17 13:46) Other Medications Magnesium 250 mg PO DAILY 02/06/17 [History Confirmed 11/01/17] Multivitamin [Daily Multiple Vitamin] 1 ea PO DAILY 02/06/17 [History Confirmed 11/01/17] Docusate Sodium [Colace] 100 mg PO BID #30 cap 10/18/17 [Rx Confirmed 11/01/17] Oxycodone [Oxyir] 5 mg PO Q4H PRN PRN 7 Days #30 tab 10/18/17 [Rx Confirmed 11/01/17] Amoxicillin/Potassium Clav [Augmentin 875-125 Tablet] 1 ea PO BID #20 tab 10/28/17 [Rx Confirmed 11/01/17] Subjective Details: Patient reports she is doing well. She is entering her bulb twice a day with no pain at the site. Objective Details: Her SUMMER site is clean dry and intact. Her SUMMER is draining serosanguineous fluid. There is no redness or pain to palpation. Assessment AND Plan Problems 1. Incarcerated ventral hernia K43.6 Plan 1. The patient has a drain placed for this operative hematoma. The patient is doing well and is taking care of the drainage. She will follow-up next week to decide if it is ready to be removed. Once it is removed and the wound has healed she will be scheduled for hernia repair with mesh placement. Adi Thornton MD Pager: [facility] [address] [place] [address], [address] [place] [address] Office: Coding Level of Care Code Global Post Op Diagnoses Incarcerated ventral hernia K43.6 11/04/17 1259 <Electronically signed by Adi Thornton MD> Date Adi Thornton MD Cosign Signature: Date (if applicable) CC: Adan Walter MD Observed: 10/29/2017 Status: F Source: [place] CULTURE, DEEP WOUND 12:56 PM [facility] REPOSITORY Gram Stain Gram Stain 4+ Red Blood Cells Rare White Blood Cells No organisms seen Wound Culture No growth aerobically. Cult, Anaerobic No growth in 5 days. Performed By: #### [id number] #### [facility] [address] [place] [address], [address] SURGERY VISIT REPORT Observed: 10/29/2017 Status: F Source: [place] 12:54 PM [facility] REPOSITORY [facility] [address] [place] [address]. [address] [place] [address] OFFICE VISIT Date of Service: 10/29/17 MR#: [id number] Acct: [id number] Name: JUNIOR CONTE Rep #: [id number] : 1965 Provider: Adi Thornton MD Age/Sex: 52/F Location: [facility] Status: Signed Intake Intake Visit Reasons: Blood Clot - Poss Infection per TC Chief Complaint: drain seroma Allergies Tetanus Vaccines and Toxoid [Tetanus Vaccines AND Toxoid] Allergy (Verified 10/29/17 11:37) Rash codeine Adverse Reaction (Verified 10/29/17 11:37) Other Medications Magnesium 250 mg PO DAILY 02/06/17 [History Confirmed 10/29/17] Multivitamin [Daily Multiple Vitamin] 1 ea PO DAILY 02/06/17 [History Confirmed 10/29/17] Progesterone,Micronized [Prometrium] 400 mg PO QHS #60 cap 02/08/17 [Rx Confirmed 10/29/17] Docusate Sodium [Colace] 100 mg PO BID #30 cap 10/18/17 [Rx Confirmed 10/29/17] Oxycodone [Oxyir] 5 mg PO Q4H PRN PRN 7 Days #30 tab 10/18/17 [Rx Confirmed 10/29/17] Amoxicillin/Potassium Clav [Augmentin 875-125 Tablet] 1 ea PO BID #20 tab 10/28/17 [Rx Confirmed 10/29/17] Subjective Details: Patient called me over the weekend and said she was having a lot of warmth and redness at the site of the hematoma. She says that that is the only area she is having pain in the rest of her abdomen is soft and nontender. She says she is also having fevers at night. Objective Details: The patient's hematoma is warm to the touch and tense. There is no erythema in the overlying area. Assessment AND Plan Problems 1. Infected hematoma following procedure Plan 1. I discussed the pros and cons of draining the hematoma with the patient. I explained that if I left the hematoma alone and started on antibiotics it may resolve that but that would take weeks to reabsorb. I explained that if I were to drain hematoma she may have a new seroma develop in the infection may delay placement of her mesh. The patient reports she is in a lot of pain and would like the hematoma drained as it is causing the only pain she is having. She says she would not be on any narcotics if it were not for this hematoma. Procedure documentation: After explaining the risks of bleeding and infection and damage to the underlying bowel I prepped the abdomen and perform an ultrasound to find the closest area to the skin. Next I anesthetized the skin with lidocaine and made a small 1 inch incision in the skin. The skin incision was deepened down to the hernia sac and this was opened allowing for suctioning of the hematoma. I suctioned all the hematoma contents in that section of the hernia sac and worked medially to open the other side of the hernia sac and suctioned hematoma from there as well. I suctioned out 200 cc of hematoma contents. I performed another ultrasound and it appeared that all of the hematoma had been evacuated. I then placed a 15 Algerian round SUMMER into the hernia sac and sutured it to the skin with a 3-0 nylon suture. The remainder of the incision was closed tightly around the SUMMER drain with 3-0 nylon sutures. The drain was placed to bulb suction and a dressing was applied. The patient tolerated the procedure well and she says that she had immediate resolution of her pain at the hernia site. 2. I will have the patient continue bulb suction I will see her back on . Once the drainage is minimal I will remove her drain. I asked her to continue her antibiotics. Once the infection has resolved and her abdomen is healing I will perform a hernia repair in place mesh to buttress the prior repair. Adi Thornton MD Pager: [facility] [address] [place] [address] [address] [place] [address] Office: Coding Level of Care Code Global Post Op Diagnoses Infected hematoma following procedure 10/29/17 1254 <Electronically signed by Adi Thornton MD> Date [facility] MD [facility] Signature: Date (if applicable) CC: Felicity Bryan MD; Adan Walter MD SURGERY VISIT REPORT Observed: 10/24/2017 Status: F Source: [place] 2:[address] [place] [address] OFFICE VISIT Date of Service: 10/24/17 MR#: [id number] Acct: [id number] Name: JUNIOR CONTE Rep #: [id number] : 1965 Provider: Adi Thornton MD Age/Sex: 52/F Location: [facility] Status: Signed Intake Intake Visit Reasons: Drain Seroma Chief Complaint: drain seroma Administrative Resources Associate Required: No Is patient in pain?: No Allergies Tetanus Vaccines and Toxoid [Tetanus Vaccines AND Toxoid] Allergy (Verified 10/24/17 12:35) Rash codeine Adverse Reaction (Verified 10/24/17 12:35) Other Medications Magnesium 250 mg PO DAILY 02/06/17 [History Confirmed 10/24/17] Multivitamin [Daily Multiple Vitamin] 1 ea PO DAILY 02/06/17 [History Confirmed 10/24/17] Progesterone,Micronized [Prometrium] 400 mg PO QHS #60 cap 02/08/17 [Rx Confirmed 10/24/17] Docusate Sodium [Colace] 100 mg PO BID #30 cap 10/18/17 [Rx Confirmed 10/24/17] Enoxaparin Sodium [Lovenox] 40 mg SQ Q12H 7 Days #14 syringe 10/18/17 [Rx Confirmed 10/24/17] Oxycodone [Oxyir] 5 mg PO Q4H PRN PRN 7 Days #30 tab 10/18/17 [Rx Confirmed 10/24/17] Is last menstrual period known: No Post menopausal: Yes Patient : No PFSH Medical History Endometrial thickening on ultra sound (Acute) Irregular menstrual bleeding (Acute) GERD (gastroesophageal reflux disease) (Acute) H/O flexible sigmoidoscopy (Acute) Obesity (Acute) Surgical History S/P carpal tunnel release (Acute) S/P section (Acute) S/P dilation and curettage (Acute) S/P hernia repair (Acute) S/P tubal ligation (Acute) Family History Father Diabetes Heart disease Hypertension Cancer bladder Mother Diabetes Hypertension DVT (deep venous thrombosis) Grandfather Colon cancer Social History Smoking Status: Never smoker HPI HPI HPI: JUNIOR CONTE, is a 52 F who presents to the office today for follow-up after saying that her abdomen has gotten worse since yesterday. She feels that is more painful. Office Procedures Procedure Time Out Time Out Informed consent given: Yes Consent signed: Yes Time out checklist: patient, procedure, site marked/identified, positioning of patient, supplies available, allergies confirmed, team agrees on procedure Time out staff in room: Yes Time out verified: Yes Time out date: 10/24/17 Time out time: 12:37 Assessment AND Plan Problems 1. Postoperative hematoma of subcutaneous tissue following non-dermatologic procedure L76.32 Plan 1. The patient had a CT scan today which showed that there is a fluid collection in the hernia sac. There is no recurrence of hernia. 2. I performed an ultrasound in the office and the fluid collection appear to be heterogeneous. I did place a small needle into the fluid collection and aspirated it and received dark blood. This confirmed that this is a postoperative hematoma in the hernia sac. 3. I discussed this with Dr. Bryan and we will hold the patient's Lovenox. 4. Follow-up in 1 week. As long as there is no sign of infection we will plan to continue for surgery and possibly evacuate the hematoma during surgery. Adi Thornton MD Pager: [facility] [address] [place] [address], [address] [place] [address] Office: Coding Level of Care Code Global Post Op Diagnoses Postoperative hematoma of subcutaneous tissue following non- dermatologic procedure L76.32 Surgical complication system/body Area: subcutaneous tissue Procedure type: non-dermatologic 10/24/17 1406 <Electronically signed by Adi Thornton MD> Date Adi Thornton MD Cosigner Signature: Date (if applicable) CC: Felicity Bryan MD; Adan Walter MD ABDOMEN/PELVIS WITHOUT Observed: 10/24/2017 Status: F Source: [place] CONT 11:47 AM [facility] REPOSITORY [facility] Imaging Services [address] [place], [place] [id number] Abdomen/Pelvis without Cont MR#: [id number] Acct: [id number] Name: JUNIOR CONTE Rep #: [id number] : 1965 F 52 From: Nakul Collins MD PCP: Adan Walter MD Status: REG CLI Study: Abdomen/Pelvis without Cont Date of Exam: 10/24/17 Exam# [id number] Ordering Dr: Felicity Bryan MD STUDY: CT ABDOMEN AND PELVIS WITHOUT CONTRAST REASON FOR EXAM: Female, 52 years old. Status post ventral hernia repair. RADIATION DOSAGE (If Supplied By Facility): CTDIvol = ( 17.54 ) mGy, DLP = ( 847.14 ) mGycm TECHNIQUE: Transaxial images were obtained from the dome of the diaphragm to the symphysis pubis without oral contrast, and without intravenous contrast. Sagittal and coronal images were reconstructed. Individualized dose optimization techniques were used for this CT. COMPARISON: Comparison is made with prior examination dated September 24, 2017. FINDINGS: The visualized lung bases are unremarkable. The visualized portions of the heart are within normal limits. There is decreased attenuation of the liver consistent with steatosis. There are multiple small gallstones. Normal spleen. Normal pancreas. Normal bilateral adrenal glands. Normal right kidney. Normal left kidney. There is a small hiatal hernia. Normal small intestine. Normal colon. There is non-visualization of the appendix. There is atherosclerotic calcification of the abdominal aorta, without a demonstrated aneurysm. Normal inferior vena cava. Normal retroperitoneum. Normal urinary bladder. There is evidence of a 8.6 cm x 8.5 cm x 9.2 cm hypodense collection in the subcutaneous tissue anteriorly just caudad to the umbilicus. Just at the adjacent to this on the right side in the subcutaneous tissue, there is a similar area of hypodensity measuring 4.8 cm x 3.3 cm. This may represent postoperative seroma or hematoma. There is also evidence of increased markings in the surrounding subcutaneous tissues. There are diffuse degenerative changes of the visualized lumbar spine. CT/Abdomen/Pelvis without Cont IMPRESSION: Status post ventral hernia repair with findings suggestive of postoperative hematoma or seroma in the subcutaneous tissues just caudad to the umbilicus with evidence of subcutaneous edema. Electronically Signed: Nakul Collins MD at 12:44 EDT Tel [phone], Service support , CC: Felicity Bryan MD; Adan Walter MD Production Control Expediter: Signed SURGERY VISIT REPORT Observed: 10/23/2017 Status: F Source: [place] 11:25 AM [facility] RE[facility]ITORY [facility] [address] [address] [place] [address] OFFICE VISIT Date of Service: 10/23/17 MR#: [id number] Acct: [id number] Name: JUNIOR CONTE Rep #: [id number] : 1965 Provider: Adi Thornton MD Age/Sex: 52/F Location: [facility] Status: Signed Intake Intake Visit Reasons: Discuss SX Chief Complaint: hyster, hernia repair Administrative Resources Associate Required: No Is patient in pain?: Yes (abdomen) Allergies Tetanus Vaccines and Toxoid [Tetanus Vaccines AND Toxoid] Allergy (Verified 10/23/17 09:35) Rash codeine Adverse Reaction (Verified 10/23/17 09:35) Other Medications Magnesium 250 mg PO DAILY 02/06/17 [History Confirmed 10/23/17] Multivitamin [Daily Multiple Vitamin] 1 ea PO DAILY 02/06/17 [History Confirmed 10/23/17] Progesterone,Micronized [Prometrium] 400 mg PO QHS #60 cap 02/08/17 [Rx Confirmed 10/23/17] Docusate Sodium [Colace] 100 mg PO BID #30 cap 10/18/17 [Rx Confirmed 10/23/17] Enoxaparin Sodium [Lovenox] 40 mg SQ Q12H 7 Days #14 syringe 10/18/17 [Rx Confirmed 10/23/17] Oxycodone [Oxyir] 5 mg PO Q4H PRN PRN 7 Days #30 tab 10/18/17 [Rx Confirmed 10/23/17] Subjective Details: The patient was recently in the hospital for hysterectomy and during this surgery I was called in to help with the hernia. I reduce the hernia contents and closed the hernia with interrupted sutures. I did not place any mesh due to contamination from colotomy. The patient reports some firmness in the hernia sac since surgery but no other issues. Objective Details: The patient's abdomen is soft, nontender, nondistended. Her incisions are healing well and are clean dry and intact. There appears to be a seroma of the hernia sac which is nonreducible. There is no sign of infection. Assessment AND Plan Problems 1. Incarcerated ventral hernia K43.6 Plan 1. The patient has an incarcerated ventral hernia that I repaired during her hysterectomy 2 weeks ago. I repaired this with sutures as the patient was undergoing a contaminated case. I recommended that the patient return for laparoscopic mesh placement to buttress the repair. 2. I explained the procedure in detail. I would place a port in the abdomen and as long as the hernia repair was still intact I would buttress it with laparoscopic mesh. I will place trans-fascial sutures and tacked the mesh circumferentially. If I was unable to reduce the abdomen or if there was adhesions I would have to convert to an open procedure. I explained the risks including but not limited to bleeding, infection, injury to underlying bowel, recurrence of hernia, mesh infection. The patient understands the risks and is willing to proceed with surgery. Adi Thornton MD Pager: [facility] [address] [place] [address], [address] [place] [address] Office: Coding Level of Care Code Global Post Op Diagnoses Incarcerated ventral hernia K43.6 10/23/17 1125 <Electronically signed by Adi Thornton MD> Date Adi Thornton MD Cosigner Signature: Date (if applicable) CC: Felicity Bryan MD; Adan Walter MD DISCHARGE SUMMARY Observed: 10/21/2017 Status: F Source: [place] 4:55 PM [facility] REPOSITORY [facility] Medical Records Department [address] [place] [address] Discharge Summary 10/21/17 1641 MR#: [id number] Acct: [id number] Name: JUNIOR CONTE Rep #: [id number] : 1965 52 From: Felicity Bryan MD PCP: Adan Walter MD Status: DIS IN Y Location: [facility] [id number] Discharge Date and Diagnosis Date of Admission: 10/15/17 Date of Discharge: 10/18/17 - Primary Discharge Diagnosis Irregular menstrual cycle, thickened endometrium imaging studies, injury to large bowel, ventral hernia - Secondary Discharge Diagnosis hyperglycemia obesity Hospital Course and Treatment Dr. Kory Ley Operations: hysterectomy, - - repair of large bowel trocar injury, reduction of ventral hernia, bilateral salpingo-oophorectomy Summary of Care Provided: The patient is a 52 year old F who underwent a robotic assisted vaginal hysterectomy, bilateral salpingo-oophorectomy. Upon entry into the abdominal cavity with the 12 mm disposable trocar for robotic procedure, the large colon was encountered encased in pelvic adhesive disease from the large colon omentum to the anterior abdominal wall. This was noted to be superior to a very large ventral hernia. Dr. Kory Hackett and Dr. Adi Adorno to have presented and created a laparotomy site at the prior 12 mm camera site to investigate the bowel, reduce adhesions, and to repair the ostomy site of the large colon. This area was then repaired via the fascia by Dr. Adi Browne. Additional trocar sites were then established for the robotic part of the procedure but before able to accomplish that part of the operation, Dr. guillory was able to reduce the ventral hernia and secure inferiorly the fascial layer of the abdominal wall. After repair of this ventral hernia site, the robotic hysterectomy with bilateral salpingo-oophorectomy progressed. Enteral lysis at the vesicouterine peritoneum was required likely in relationship to the prior section. After surgery occurred patient was admitted to the medical surgical floor for postoperative care. To be stable. By day 1 after surgery patient continued with ambulation along with receiving a few liquid diet. Patient had slow bowel return by day 3 after surgery and had slow progression of diet throughout the 3D hospital stay. She was noted to have adequate pain control with minimal IV and then eventual oral narcotics. Patient had ambulation throughout the hospital stay. The small bowel before discharge to home. Patient was discharged home on day 3 after surgery. She was discharged to the home setting with oral narcotics, Colace to aid with bowel function, Pyridium to aid with bladder function. Patient was also instructed to use Lovenox on a BID basis which was dosed on her BMI. Patient also was encouraged to use Tylenol in the home setting as well. Patient's discharge instructions give specifics on a very low residue diet with no beef or pork or fresh vegetables to be ingested. She was also instructed on frequent ambulation with periods of rest in between. She had a 5 pound weight limit. She was able to walk in shower but no tub bathing was advised. Stairs were on a limited basis. She is to return to the office setting for a first postop visit in 1 week's time and that was to be arranged by the patient.] Discharge Diet: - - low residue. No beef, pork or fresh vegetables 2 weeks postop Discharge Activity: May Not Drive - for 1 week or while taking narcotic pain medicine., - - Ambulate often with periods of rest in between May shower in (days): 0 - May shower today May resume sexual activity in: 6-8 weeks Weight Bearing Status: Full weight bearing Lifting Restrict to (lbs):: 5 Call your doctor if your incision/area has: Continuous Slow Oozing, Sudden Increased Bleeding, Increased Pain/ Swelling, Increased Redness, Foul Smelling Discharge Call your doctor if you observe: Fever of 101 or Higher, Inability to urinate, Inability to have a bowel movement, Using more than one pad per hour, Shortness of breath Suture Line Care: Avoid Pulling/Pushing, Avoid Pinching/Bending Remove Dressing in (days):: 0 - Remove dressings today and leave open to air Cleanse incision/area with: Soap AND Water Additional Dressing/Incision Instructions:: Change or remove dressing in 2 days. Leave steri-strips in place for 1 week. Home Medications: Medications to take at Discharge Magnesium 250 mg PO DAILY 02/06/17 Multivitamin [Daily Multiple Vitamin] 1 ea PO DAILY 02/06/17 Progesterone,Micronized [Prometrium] 400 mg PO QHS #60 cap 02/08/17 Docusate Sodium [Colace] 100 mg PO BID #30 cap 10/18/17 Enoxaparin Sodium [Lovenox] 40 mg SQ Q12H 7 Days #14 syringe 10/18/17 Oxycodone [Oxyir] 5 mg PO Q4H PRN PRN 7 Days #30 tablet 10/18/17 Following Prescrptions Were Given to Patient: Oxycodone [Oxyir] 5 mg PO Q4H PRN PRN 7 Days #30 tablet PRN Reason: Pain Enoxaparin Sodium [Lovenox] 40 mg SQ Q12H 7 Days #14 syringe Docusate Sodium [Colace] 100 mg PO BID #30 cap Primary Care Physician: Mookie Walter MD [Primary Care Provider] - Please Follow Up With: Adi Thornton MD - [phone] When: Call to make an appointment to be seen in about 7- 10 days. Please Follow Up With: Felicity Bryan MD When: 1 week and call for appointment if not already scheduled Medical Necessity - Tobacco Use Smoking Status: Never smoker Tobacco Use: Non-smoker Meaningful Use Info Meaningful Use Diagnoses (Choose all that apply): None applicable 10/21/17 1655 <Electronically signed by Felicity Bryan MD> Date Felicity Bryan MD Cosigner Signature (if applicable): Date CC: Felicity Bryan MD; Adan Walter MD Signed DISCHARGE INSTRUCTION Observed: 10/18/2017 Status: F Source: [place] 5:13 PM [facility] REPOSITORY [facility] Medical Records Department [address] [place] [address] Instructions for Home/Discharge Instructions 10/18/17 0520 MR#: [id number] Acct: [id number] Name: UJNIOR CONTE Rep #: [id number] : 1965 52 From: Kory Hackett MD PCP: Adan Walter MD Status: DIS IN Discharge Diet: Light diet - advance as tolerated - if you have questions about your diet instructions, please talk to you doctor. Discharge Activity: May Not Drive - for 1 week or while taking narcotic pain medicine. May shower in (days): 0 - May shower today Lifting Restrictions: 10 pounds Call your doctor if your incision/area has: Continuous Slow Oozing, Sudden Increased Bleeding, Increased Pain/ Swelling, Increased Redness, Foul Smelling Discharge Call your doctor if you observe: Fever of 101 or Higher Suture Line Care: Avoid Pulling/Pushing, Avoid Pinching/Bending Additional Dressing/Incision Instructions:: Change or remove dressing in 2 days. Leave steri-strips in place for 1 week. Allergies/Adverse Reactions: Allergies Tetanus Vaccines and Toxoid [Tetanus Vaccines AND Toxoid] Allergy (Verified 10/08/17 13:13) Rash codeine Adverse Reaction (Verified 10/08/17 13:13) Other HEART RACING Medications to take at Discharge Magnesium 250 mg PO DAILY 02/06/17 Multivitamin [Daily Multiple Vitamin] 1 ea PO DAILY 02/06/17 Progesterone,Micronized [Prometrium] 400 mg PO QHS #60 cap 02/08/17 Primary Care Physician: Mookie Walter MD [Primary Care Provider] - Test Results: Test results from this visit will be discussed in further detail at your follow-up appointment, if applicable. Please Follow Up With: Adi Thornton MD - [phone] When: Call to make an appointment to be seen in about 7- 10 days. 10/18/17 0354 <Electronically signed by Kory Hackett MD> Date Kory Hackett MD CC: Adan Walter MD; Tonny Ley DO BEDSIDE GLUCOSE Collected: 10/18/2017 Status: F Source: [place] 10:48 AM [facility] REPOSITORY TYPE CODE TESTS RESULT OUT OF REFERENCE UNITS RANGE LAB L501.080 70-110 mg/dL High BEDSIDE GLU 129 Result Comment: MANAGEMENT OF PATIENT CARE PER NURSING PROTOCOL Performed By: #### L501.080 #### [facility] Laboratory Point of Care [address] [place] [address] DISCHARGE INSTRUCTION Observed: 10/18/2017 Status: F Source: [place] 6:56 AM [facility] REPOSITORY [facility] Medical Records Department [address] [place] [address] Instructions for Home/Discharge Instructions 10/18/17 0653 MR#: [id number] Acct: [id number] Name: JUNIOR CONTE Rep #: [id number] : 1965 52 From: Felicity Bryan MD PCP: Adan Walter MD Status: ADM IN Discharge Diet: Light diet - advance as tolerated - if you have questions about your diet instructions, please talk to you doctor., - - No beef, pork or fresh vegetables a minimum of 2 weeks after surgery. Protein shakes are encouraged. Water intake a minimum of 100 ounces per day. Discharge Activity: May Not Drive - for 1 week or while taking narcotic pain medicine., - - Ambulate often with periods of rest in between May shower in (days): 0 - May shower today May resume sexual activity in: 6-8 weeks Weight Bearing Status: Full weight bearing Lifting Restrictions: 5 Call your doctor if your incision/area has: Continuous Slow Oozing, Sudden Increased Bleeding, Increased Pain/ Swelling, Increased Redness, Foul Smelling Discharge Call your doctor if you observe: Fever of 101 or Higher, Inability to urinate, Inability to have a bowel movement, Using more than one pad per hour, Shortness of breath Suture Line Care: Avoid Pulling/Pushing, Avoid Pinching/Bending Remove Dressing in (days):: 0 - Remove dressings today and leave open to air Cleanse incision/area with: Soap AND Water Additional Dressing/Incision Instructions:: Change or remove dressing in 2 days. Leave steri-strips in place for 1 week. Allergies/Adverse Reactions: Allergies Tetanus Vaccines and Toxoid [Tetanus Vaccines AND Toxoid] Allergy (Verified 10/08/17 13:13) Rash codeine Adverse Reaction (Verified 10/08/17 13:13) Other HEART RACING Medications to take at Discharge Magnesium 250 mg PO DAILY 02/06/17 Multivitamin [Daily Multiple Vitamin] 1 ea PO DAILY 02/06/17 Progesterone,Micronized [Prometrium] 400 mg PO QHS #60 cap 02/08/17 Primary Care Physician: Mookie Walter MD [Primary Care Provider] - Test Results: Test results from this visit will be discussed in further detail at your follow-up appointment, if applicable. Please Follow Up With: Adi Thornton MD - [phone] When: Call to make an appointment to be seen in about 7- 10 days. Please Follow Up With: Felicity Bryan MD When: 1 week and call for appointment if not already scheduled 10/18/17 0656 <Electronically signed by Felicity Bryan MD> Date Felicity Bryan MD CC: Adan Walter MD; Tonny Ley DO BEDSIDE GLUCOSE Collected: 10/18/2017 Status: F Source: [place] 6:41 AM [facility] REPOSITORY TYPE CODE TESTS RESULT OUT OF REFERENCE UNITS RANGE LAB L501.080 70-110 mg/dL High BEDSIDE GLU 137 Result Comment: MANAGEMENT OF PATIENT CARE PER NURSING PROTOCOL Performed By: #### L501.080 #### [facility] Point of Care [facility] [place] [address] CBC-COMPLETE BLOOD CNT Collected: 10/18/2017 Status: F Source: [place] NO DIFF 5:54 AM [facility] REPOSITORY TYPE CODE TESTS RESULT OUT OF RANGE REFERENCE UNITS LAB L100.1000 4.4-11.0 K/mm3 Normal WBC 7.2 LAB L100.1200 4.2-5.4 M/mm3 Low RBC 3.14 LAB L100.1300 12.0-15.0 g/dl Low HGB 10.1 LAB L100.1400 37-47 % Low HCT 30.7 LAB L100.1500 81-99 fL Normal MCV 97.8 LAB L100.1600 27.0-32.0 pg High MCH 32.2 LAB L100.1700 32-36 g/gl Normal MCHC 32.9 LAB L100.1810 11.6-14.6 % Normal RDW CV 13.0 LAB L100.1820 35.1-43.9 fl High RDW SD 45.0 LAB L100.1900 150-450 K/mm3 Normal PLT 262 LAB L100.2000 6.2-12.0 fl Normal MPV 10.0 Performed By: #### L100.0500 #### [facility] [address] [place], [address] BEDSIDE GLUCOSE Collected: 10/17/2017 Status: F Source: [place] 9:20 PM [facility] REPOSITORY TYPE CODE TESTS RESULT OUT OF RANGE REFERENCE UNITS LAB L501.080 70-110 mg/dL Normal BEDSIDE GLU 101 Result Comment: MANAGEMENT OF PATIENT CARE PER NURSING PROTOCOL Performed By: #### L501.080 #### [facility] Point of Care [address] [place] [address] BEDSIDE GLUCOSE Collected: 10/17/2017 Status: F Source: [place] 4:19 PM [facility] REPOSITORY TYPE CODE TESTS RESULT OUT OF REFERENCE UNITS RANGE LAB L501.080 70-110 mg/dL High BEDSIDE GLU 118 Result Comment: MANAGEMENT OF PATIENT CARE PER NURSING PROTOCOL Performed By: #### L501.080 #### [facility] Point of Care [address] [place] [address] BEDSIDE GLUCOSE Collected: 10/17/2017 Status: F Source: [place] 11:19 AM [facility] REPOSITORY TYPE CODE TESTS RESULT OUT OF RANGE REFERENCE UNITS LAB L501.080 70-110 mg/dL Normal BEDSIDE GLU 108 Result Comment: MANAGEMENT OF PATIENT CARE PER NURSING PROTOCOL Performed By: #### L501.080 #### [facility] Point of Care [address] [place] [address] BEDSIDE GLUCOSE Collected: 10/17/2017 Status: F Source: [place] 7:00 AM [facility] REPOSITORY TYPE CODE TESTS RESULT OUT OF REFERENCE UNITS RANGE LAB L501.080 70-110 mg/dL High BEDSIDE GLU 117 Result Comment: MANAGEMENT OF PATIENT CARE PER NURSING PROTOCOL Performed By: #### L501.080 #### [facility] Point of Care [address] [place] [address] CBC-COMPLETE BLOOD CNT Collected: 10/17/2017 Status: F Source: [place] NO DIFF 5:20 AM [facility] REPOSITORY TYPE CODE TESTS RESULT OUT OF RANGE REFERENCE UNITS LAB L100.1000 4.4-11.0 K/mm3 Normal WBC 8.9 LAB L100.1200 4.2-5.4 M/mm3 Low RBC 3.19 LAB L100.1300 12.0-15.0 g/dl Low HGB 10.1 LAB L100.1400 37-47 % Low HCT 31.3 LAB L100.1500 81-99 fL Normal MCV 98.1 LAB L100.1600 27.0-32.0 pg Normal MCH 31.7 LAB L100.1700 32-36 g/gl Normal MCHC 32.3 LAB L100.1810 11.6-14.6 % Normal RDW CV 13.2 LAB L100.1820 35.1-43.9 fl High RDW SD 45.5 LAB L100.1900 150-450 K/mm3 Normal PLT 236 LAB L100.2000 6.2-12.0 fl Normal MPV 10.6 Performed By: #### L100.0500 #### [facility] [address] [facility] [place], [address] BEDSIDE GLUCOSE Collected: 10/16/2017 Status: F Source: RAG[place] 10:10 PM [facility] REPOSITORY TYPE CODE TESTS RESULT OUT OF REFERENCE UNITS RANGE LAB L501.080 70-110 mg/dL High BEDSIDE GLU 125 Result Comment: MANAGEMENT OF PATIENT CARE PER NURSING PROTOCOL Performed By: #### L501.080 #### [facility] Point of Care [address] [place] [address] BEDSIDE GLUCOSE Collected: 10/16/2017 Status: F Source: [place] 4:36 PM [facility] REPOSITORY TYPE CODE TESTS RESULT OUT OF REFERENCE UNITS RANGE LAB L501.080 70-110 mg/dL High BEDSIDE GLU 134 Result Comment: MANAGEMENT OF PATIENT CARE PER NURSING PROTOCOL Performed By: #### L501.080 #### [facility] Point of Care [address] [place] [address] BEDSIDE GLUCOSE Collected: 10/16/2017 Status: F Source: [place] 10:58 AM [facility] REPOSITORY TYPE CODE TESTS RESULT OUT OF REFERENCE UNITS RANGE LAB L501.080 70-110 mg/dL High BEDSIDE GLU 163 Result Comment: MANAGEMENT OF PATIENT CARE PER NURSING PROTOCOL Performed By: #### L501.080 #### [facility] Point of Care [address] [place] [address] OPERATIVE REPORT Observed: 10/16/2017 Status: F Source: [place] 7:31 AM [facility] REPOSITORY [facility] Medical Records Department [address] [place] [address] Operative Report 10/16/17 0726 MR#: [id number] Acct: [id number] Name: JUNIOR CONTE Rep #: [id number] : 1965 52 From: Adi Thornton MD PCP: Adan Walter MD Status: ADM IN Location: [address] Problem List (1) Incarcerated ventral hernia Status: Acute (2) Injury of large intestine Status: Acute Qualifiers: Encounter type: initial encounter Qualified Code(s): S36.509A - Unspecified injury of unspecified part of colon, initial encounter Report of Operation Date of Procedure: 10/15/17 Pre-Operative Diagnosis: Possible trocar injury to the bowel. Incarcerated ventral hernia Post-Operative Diagnosis: Confirmed singlewall transverse colon trocar injury. Incarcerated ventral hernia Surgery/Procedure Performed:: Mini laparotomy with exploration and transverse colon enterostomy repair. Laparoscopic ventral hernia repair television equipment operator: Felicity Bryan Type of Anesthesia:: General Anesthesiologist: Angela Rick Special Medications: Cefotetan, Zosyn, Heparin Description of Procedure: I was called to the operating room to assist Dr. Hackett with transverse colon repair. Dr. Hackett's note will describe the transverse colon repair. The bowel contents were reduced back into the abdomen and Dr. Hackett left the surgery. At that point I closed the fascial opening with running #1 PDS sutures which met in the middle. The subcutaneous cavity was irrigated copiously with saline and was to be closed with interrupted 4-[address] Bryan at the end of the case. The abdomen was reinsufflated and the transverse colon was inspected and did not appear to have any other stool or openings. Next attention was paid inferiorly and the hernia appear to be incarcerated and blocking any view to proceed with hysterectomy. I reduced the hernia contents back into the abdomen laparoscopically. I took down the adhesions to the hernia sac. Once evident was reduced I measured the hernia and it appeared to be 7 cm in diameter. At that point we decided that we would like to have the defect closed to prevent reincarceration of the hernia. A small incision was made with an 11 blade scalpel just inferior to the umbilicus in the middle of the hernia. Using a Jose Ulloa needle 7 #1 PDS sutures were placed across the hernia defect at approximately 1 cm intervals. The pneumoperitoneum was then dropped to 6 mmHg and these were tied, closing the hernia defect. The pneumoperitoneum was then increased back to 12 mmHg and the repair seemed to hold well. I did not place any mesh due to the contamination of the case. At this time I left the case for Dr. Brayn to continue her hysterectomy. I recommend that the patient return to the operating room after contamination has resolved for buttressing of this repair with intraperitoneal mesh and transfascial sutures. 10/16/17 0731 <Electronically signed by Adi Thornton MD> Date Adi Thornton MD CC: Felicity Bryan MD; Adi Thornton MD; Adan Walter MD; Tonny Ley DO Signed OPERATIVE REPORT Observed: 10/16/2017 Status: F Source: [place] 7:02 AM [facility] REPOSITORY [facility] Medical Records Department [address] [place] [address] Operative Report 10/15/17 1509 MR#: [id number] Acct: [id number] Name: JUNIOR CONTE Rep #: [id number] : 1965 52 From: Kory Hackett MD PCP: Adan Walter MD Status: ADM IN Y Location: MS3 [id number] Problem List (1) Injury of large intestine Status: Acute Qualifiers: Encounter type: initial encounter Qualified Code(s): S36.509A - Unspecified injury of unspecified part of colon, initial encounter Report of Operation Date of Procedure: 10/15/17 Pre-Operative Diagnosis: Possible trocar injury to the bowel Post-Operative Diagnosis: Confirmed singlewall transverse colon trocar injury Surgery/Procedure Performed:: Mini laparotomy with exploration and transverse colon enterostomy repair Description of Surgical Findings:: I was asked by Dr. Felicity Bryan to present to the operating room to assist her with a possible trocar injury to the bowel. Soon after my arrival I requested that Dr. Javier guillory present as well to assist and then further assist her with general surgery robotic capability which I do not have. The patient has ventral hernias. A large trocar been placed superior to the umbilicus and upon placement of the secondary trocar there was concern that the trocar was then an area of adhesions of omentum and suspected bowel. For better visualization I placed an additional 5 mm port in the left midabdomen. Using a 30 following her scope it became apparent that the central trocar was indeed within bowel suspected to be transverse colon. There were multiple adhesions of omentum down the midline and a complicated hernia sac. At this point I made the decision to extend the incision at the major trocar site and perform a direct exploration with repair. I widened that incision transversely used electrocautery to dissect down through the substance tissue. The trocar was kept in place throughout this dissection. Unfortunately there were multiple adhesions of omentum that were densely adherent actually within the complicated hernia sac that is in the infraumbilical midline position. With a combination of sharp and electrocautery and blunt dissection however I was able to free up enough of the structures present to identify that the trocar was indeed in the transverse colon. The patient had had a mechanical bowel prep. We dissected free the greater omentum off the anterior surface of the colon. We identified the defect. Laparotomy packs were placed around. The trocar was removed and the enterotomy was slightly lengthened inspection of the entire back wall of the colon from inside of the bowel was performed and there was no injury. It was noted that this was not ablated trocar but an unrelated trocar. I felt that this was a singlewall injury. The bowel appeared to be otherwise healthy. I approximated the defect transversely using a 2 layer approach with a running 3-0 chromic and then a running Lembert style 3-0 silk. The bowel appeared to be widely patent and appear to be nicely vascularized. That was then placed back within the abdomen. At this point Dr. Thornton initiated fascial repair and take over of the general surgery component with laparoscopic/robotic visualization to better assist Dr. Bryan. I excused myself from the case at this moment. Specimens none. Drains none. Blood loss minimal. Kory Hackett M.D., F.A.C.S. television equipment operator: Felicity Bryan television equipment operator: Adi Thornton Type of Anesthesia:: General Anesthesiologist: Angela Rick 10/16/17 0702 <Electronically signed by Kory Hackett MD> Date Kory Hackett MD CC: Felicity Bryan MD; Adan Walter MD; Tonny Ley DO; Kory Hackett MD Signed BEDSIDE GLUCOSE Collected: 10/16/2017 Status: F Source: [place] 6:17 AM [facility] REPOSITORY TYPE CODE TESTS RESULT OUT OF REFERENCE UNITS RANGE LAB L501.080 70-110 mg/dL High BEDSIDE GLU 162 Result Comment: MANAGEMENT OF PATIENT CARE PER NURSING PROTOCOL Performed By: #### L501.080 #### [facility] [place] [address] CBC-COMPLETE BLOOD CNT Collected: 10/16/2017 Status: F Source: [place] NO DIFF 5:35 AM [facility] REPOSITORY TYPE CODE TESTS RESULT OUT OF RANGE REFERENCE UNITS LAB L100.1000 4.4-11.0 K/mm3 High WBC 11.8 LAB L100.1200 4.2-5.4 M/mm3 Low RBC 3.64 LAB L100.1300 12.0-15.0 g/dl Low HGB 11.5 LAB L100.1400 37-47 % Low HCT 34.9 LAB L100.1500 81-99 fL Normal MCV 95.9 LAB L100.1600 27.0-32.0 pg Normal MCH 31.6 LAB L100.1700 32-36 g/gl Normal MCHC 33.0 LAB L100.1810 11.6-14.6 % Normal RDW CV 12.8 LAB L100.1820 35.1-43.9 fl Normal RDW SD 43.5 LAB L100.1900 150-450 K/mm3 Normal PLT 271 LAB L100.2000 6.2-12.0 fl Normal MPV 10.7 Performed By: #### L100.0500 #### [facility] [address] [facility] [place], [address] BASIC METABOLIC Collected: 10/16/2017 Status: F Source: [place] PROFILE (BMP) 5:35 AM [facility] REPOSITORY TYPE CODE TESTS RESULT OUT OF RANGE REFERENCE UNITS LAB L501.0100 74-106 mg/dL High GLU 155 Result Comment: Fasting Glucose result greater than or equal to 126 mg/dL suggests DIABETES MELLITUS per A.D.A. criteria. Please note revised GLUCOSE reference range effective 2017. LAB L501.1000 7-18 mg/dL Normal BUN 14 LAB L501.1100 0.55-1.02 mg/dL Normal CREAT,SERUM 1.01 Result Comment: The validity of the calculated GFR AND GFRAA in patients over 70 years has not been determined. Clinical correlation is essential. LAB L501.1110 >60 mL/min Normal EST GFR 61 Result Comment: Non- GFR Calc LAB L501.1115 >60 mL/min Normal EST GFR - AA 74 Result Comment: GFR Calc LAB L501.1255 ml/min Normal Estimated CRCL 54.51 LAB L501.1300 10-20 RATIO Normal BUN/CRE 13.9 LAB L501.2200 8.5-10 mg/dL Low .1 CA 8.3 LAB L501.5300 136-14 mmol/L Normal 5 NA 141 LAB L501.5600 3.5-5. mmol/L Normal 1 K 4.3 LAB L501.5900 98-107 mmol/L Normal CL 106 LAB L501.6100 21.0-3 mmol/L Normal 2.0 CO2 23.0 LAB L501.6200 5-15 Normal GAP 12 Performed By: #### L500.2500 #### [facility] [address] [place], [address] BEDSIDE GLUCOSE Collected: 10/15/2017 Status: F Source: [place] 9:49 PM [facility] REPOSITORY TYPE CODE TESTS RESULT OUT OF REFERENCE UNITS RANGE LAB L501.080 70-110 mg/dL High BEDSIDE GLU 154 Result Comment: MANAGEMENT OF PATIENT CARE PER NURSING PROTOCOL Performed By: #### L501.080 #### [facility] Point of Care [address] [place] [address] CONSULTATION Observed: 10/15/2017 Status: F Source: [place] 7:58 PM [facility] REPOSITORY [facility] Medical Records Department [address] [place] [address] Consultation 10/15/17 1950 MR#: [id number] Acct: [id number] Name: JUNIOR CONTE Rep #: [id number] : 1965 52 From: Tonny Ley DO PCP: Adan Walter MD Status: ADM IN [id number] Reason for Consult Date of Consultation: 10/15/17 Reason for Consultation: Consult by Dr. Menezes for postoperative medical management History of Present Illness: The patient is a 52 year old F who is undergoing a hysterectomy and then there was a bowel injury which required the assistance of surgery for bowel repair. Patient had confirmed a single wall transverse went mini laparotomy with exploration and transverse colon enterostomy repair. Patient seen postoperatively and having some abdominal discomfort but otherwise no significant complaints at this time. [] Past Medical History Medical History: Medical History (Last Reviewed 10/15/17 @ 19:53 by Tonny Ley DO) Endometrial thickening on ultra sound (Acute) R93.8 Irregular menstrual bleeding (Acute) N92.6 GERD (gastroesophageal reflux disease) K21.9 H/O flexible sigmoidoscopy Z98.890 Obesity E66.9 Allergies Tetanus Vaccines and Toxoid [Tetanus Vaccines AND Toxoid] Allergy (Verified 10/08/17 13:13) Rash codeine Adverse Reaction (Verified 10/08/17 13:13) Other HEART RACING Home Medications: Ambulatory Orders Medication Instructions Recorded Surgical History: Surgical History (Last Reviewed 10/15/17 @ 19:53 by Tonny Ley DO) S/P carpal tunnel release Z98.890 S/P section Z98.891 S/P dilation and curettage Z98.890 S/P hernia repair Z98.890, Z87.19 S/P tubal ligation Z98.51 Smoking Status: Never smoker Tobacco Use: Non-smoker Alcohol: Occasional Drugs: None - *Family History Maternal Family History: Family History (Last Reviewed 10/15/17 @ 19:54 by Tonny Ley DO) Father Diabetes Heart disease Hypertension Cancer Mother Diabetes Hypertension DVT (deep venous thrombosis) Grandfather Colon cancer Review of Systems Constitutional: Denies: Anorexia, Chills, Fever, Night Sweats Eyes: Denies: Blurred vision, Double vision HEENT: Denies: Head Aches, Sinus Congestion, Sinus Drainage Cardiovascular: Reports: Chest Pain - None currently but has had chest pain in the past and states it has been worked up and has been unremarkable.. Denies: Palpitations Respiratory: Denies: Hemoptysis, Shortness of breath at rest Gastrointestinal: Reports: Abdominal Pain, Nausea Genitourinary: Denies: Dysuria Gynecological: Reports: Excessively long or heavy periods Musculoskeletal: Denies: Joint Pain, Joint Tenderness Skin: Denies: Rash, Wounds Neurological: Denies: Numbness, Tingling, Focal weakness Hematologic/ Lymphatic: Reports: Easy Bleeding. Denies: Easy Bruising, Hx of blood clot Comment: All review of systems are negative except as mentioned in the history of present illness and the other review of systems. Patient Problems: Active and Suspected Problems (Last Reviewed 09/26/17 @ 10:56 by Carlos Vazquez MD) Injury of large intestine (Acute) - Physical Exam General: Alert, Cooperative, No apparent distress, - - Groggy postoperatively HEENT: Atraumatic, Normocephalic Oral: Moist Mucosa, No Gingival or Mucosal Lesions/ Ulcerations Neck: No Nodes, Thyroid Normal Size and Texture Lungs: Clear to auscultation, No rhonchi, No wheeze, Diminished Cardiovascular: Regular rate, Regular Rhythm, Normal S1, Normal S2, No murmurs Abdomen: Soft, Hypoactive Bowel Sounds, Obese Extremities: No edema, No Calf Tenderness Skin: No rashes, No breakdown Psych/Mental Status: Appropriate, Flat Affect Vital Signs Temp Pulse Resp BP Pulse Ox 36.3 C L 73 16 119/66 95 10/15/17 19:03 10/15/17 19:03 10/15/17 19:03 10/15/17 19:03 10/15/17 19:03 Oxygen Flow Rate (L/min) 3 Oxygen Delivery Method Nasal Cannula Weight: 139.2 kg Body Mass Index (BMI) 54.3 Intake and Output for Last 24 Hours Output Total 600 / 600 Balance -600 / -600 Laboratory Tests Past 24 Hrs Assessment/Plan All Active Problems (Last Reviewed 09/26/17 @ 10:56 by Carlos Vazquez MD) Injury of large intestine (Acute) Endometrial thickening on ultra sound (Acute) Irregular menstrual bleeding (Acute) 1. Hyperglycemia * No known history of diabetes and * Will check blood sugars * Patient will be on a moderate dose sliding scale insulin 2. Status post transverse colon injury * Status post mini laparotomy with enterostomy repair * Per general surgery * Started on empiric Zosyn 3. Status post hysterectomy * Management per gynecology 4. DVT prophylaxis: SCDs Thank you for the consult. The hospitalist service will continue to follow during the course of the patient's hospitalization. Code Visit Inpatient E AND M: 11953 Init Hosp L2 10/15/171957 <Electronically signed by Tonny Ley DO> Date Tonny Oseiignaramis Signature (if applicable): Date CC: Felicity Bryan MD; Adan Walter MD Signed OPERATIVE REPORT Observed: 10/15/2017 Status: F Source: [place] 7:42 PM [facility] REPOSITORY [facility] Medical Records Department [address] [place] [address] Operative Report 10/15/17 1847 MR#: [id number] Acct: [id number] Name: JUNIOR CONTE Rep #: [id number] : 1965 52 From: Felicity Bryan MD PCP: Adan Walter MD Status: ADM IN Y Location: MS3 BP341-4 ADDENDUM by Felicity Bryan MD on 10/15/17 at 1942 Code Visit The patient presented to the surgery suite n.p.o. status. Bowel preparation had been ordered in the home setting. Patient had Srivastava catheter placed by myself followed by a large V care which was secured to the cervix via O vicryl sutures at 3:00 and 9:00. Changing gloves and moving to the top of the patient notation of 12 cm above the fundal was noted to be at the prior tubal ligation site and decision for trocar camera placement superior to this in the supraumbilical area. Veress needle was placed through this incision site. Abdominal placement was not reassured due to the depth of the patient's abdomen and adipose tissue and a longer Veress needle was less assembled. The longer Veress needle was then placed and water test noted abdominal placement. The 8 mm nondisposable robotic camera trocar was attempted to be placed but also was noted to be short in comparison to the depth of the patient's abdominal wall. A disposable 12 mm trocar was then placed. Camera was assembled and placed into the 12 mm trocar site with the suspicion of a bowel injury being noted. At this point in time a general surgery consult was requested and both Dr. Kory Hackett and Dr. Javier rolon presented for aid. There investigation and diagnosis was a large bowel trocar injury which was repaired utilizing the prior camera site extending this to a laparotomy site and investigating the bowel, identifying the trocar and incision, and repair of that ostomy site to the bowel. They then repaired the fascial layer of this laparotomy site and decision to progress with the robotic hysterectomy was made. Dr. Adorno remained in the surgery suite as robotic arms were placed under direct visualization. Should be noted that 2 5 mm incisions with disposable trochars existed on patient's left quadrant on the lateral aspect secondary to my investigation with a 5 mm port prior to the general surgeons arriving for investigation of the possible large repair and the surgeon's additional 5 mm port. Upon placement of the 8 mm camera nondisposable port superior to the laparotomy site the ventral hernia was reduced with Dr. ольга Kauffman. The ventral hernia was noted to be quite large and the possibility of strangulation was reviewed. Various PDS sutures to close the ventral hernia until an actual hernia repair with mesh could occur. After this was completed robotic hysterectomy then progressed. The trochars had been placed under direct visualization. The robot was docked to the patient's bedside. The robot was then connected to the trochars. The left robotic arm became the vessel sealer while the right robotic arm became the monopolar aayush. 1 5 mm trocar previously placed by surgery became the air seal trocar insufflation of the abdomen. Cauterized cauterization of the infundibulopelvic ligament and transection occurred left uterine vasculature. Turning to the patient's right side the round ligament was then grasped cauterized and transected the broad ligament into anterior posterior leaves. The vesicouterine peritoneum was further dissected on the patient's right side to go towards the midline adhesions were noted. The infundibulopelvic ligament was identified well away from the area of the ureter on patient's right side this was cauterized and transected occurred over skeletonization of the uterine vasculature. The uterine vessels were then grasped and cauterized and transected. Further development of vesicouterine peritoneum occurred and then cauterization and transection of the cardinal ligaments and uterosacral ligaments bilaterally occurred. Colpotomy occurred in the posterior cul-de-sac at the 6:00 region was carried in a clockwise fashion to limit o'clock region. The site. Complete transection of the cervix away from the vagina occurred. Point tender my acquisitions assistant to remove the cervix uterus bilateral fallopian tubes and bilateral ovaries through the vagina. Vaginal tampon was placed. Irrigation of the pelvis occurred. Instrument changes with the left arm becoming the large grasper in the right arm of the robot becoming the Miguel suture cut. My acquisitions assistant sequentially placed over Vicryl sutures into the pelvic region to ms with left ankle developed by the vaginal cuff to the left uterosacral cardinal complex the right vaginal cuff angle stitch was developed connecting right vaginal cuff to the clinic and both sutures needles were removed. 2 additional sutures of 0 Vicryl suture were then placed in [id number] fashion and the vaginal cuff reapproximation and hemostasis was noted to sutures were also noted to be removed from the pelvis. Needle counts were correct 2. Occurred followed by Darrion placement to the pelvis ureters were noted to be peristalsing and well away from the area of operation. At this point in time and all instruments were removed from the abdominal cavity. The CO2 gas was removed from the abdominal cavity and the robot was de-docked from the patient's side. The trochars were removed. The trocar sites were then reapproximated with 4-0 Monocryl in. Intermittent [id number] stitches of 4-0 Monocryl was used all sites were cleansed and bandaged. Sponge instrument and needle counts were once again completed 2 and were correct. Patient was awakened in stable condition. Medicine consult has been obtained for ongoing medical management. 10/15/171941 <Electronically signed by Felicity Bryan MD> Date Felicity Bryan MD cc: Felicity Bryan MD; Adan Walter MD * Signed Report of Operation Date of Procedure: 10/15/17 Pre-Operative Diagnosis: Possible trocar injury to the bowel. irregular menstrual cycles and obesity Post-Operative Diagnosis: Confirmed singlewall transverse colon trocar injury. irregular menstrual cycles, obesity, adhesions vesico-uterine peritoneum Surgery/Procedure Performed:: Mini laparotomy with exploration and transverse colon enterostomy repair. Robotic assisted hysterectomy with bilateral salpingo- oophorectomy. ventral hernia reapproximation Description of Surgical Findings:: Uterus was sounded to approximately 10 cm in an anteflexed position. Bilateral adnexa noted to be within normal limits on exam under anesthesia. Encountered a large ventral hernia upon insufflation of the abdomen. Placement of the camera into the camera port in the supraumbilical region suspicious for a bowel injury. Left upper quadrant/Parks's 0.5 mm disposable trocar placement and camera revealed a large amount of scar tissue and adhesions of the bowel omentum to the abdominal anterior wall along with ventral hernias along the abdominal wall. Uterus appeared to be within normal limits along with bilateral adnexa and ovaries. Scar tissue was noted at the vesicouterine peritoneum in relationship to the prior television equipment operator: Felicity Bryan television equipment operator: Adi Thornton Type of Anesthesia:: General Anesthesiologist: Angela Rick Special Medications: Cefotetan, Zosyn, Heparin Specimen's removed: uterus, cervix, bilateral ovaries, bilateral fallopian tubes Drains: none Estimated Blood Loss (mL): 150cc Fluids Replaced: Lactated ringers Grafts/Implants Used: none - Complications Large bowel injury with repair. - Admit VTE Documentation VTE Present on Admission: No VTE Mechan Device Prophylaxis: SCD's VTE Pharm Prophylaxis ordered?: Yes 10/15/171918 <Electronically signed by Felicity Bryan MD> Date Felicity Bryan MD CC: Felicity Bryan MD; Adan Walter MD Signed OPERATIVE REPORT Observed: 10/15/2017 Status: F Source: [place] 6:47 PM [facility] REPOSITORY [facility] Medical Records Department [address] [place] [address] [place] [address] Operative Report 10/15/171845 MR#: [id number] Acct: [id number] Name: JUNIOR CONTE Rep #: [id number] : 1965 52 From: Felicity Bryan MD PCP: Adan Walter MD Status: ADM IN [place] [facility] [id number] Report of Operation Date of Procedure: 10/15/17 Pre-Operative Diagnosis: Possible trocar injury to the bowel Post-Operative Diagnosis: Confirmed singlewall transverse colon trocar injury Surgery/Procedure Performed:: Mini laparotomy with exploration and transverse colon enterostomy repair television equipment operator: Felicity Bryan television equipment operator: Adi Thornton Type of Anesthesia:: General Anesthesiologist: Angela Rick 10/15/171846 <Electronically signed by Felicity Bryan MD> Date Felicity Bryan MD CC: Felicity Bryan MD; Adan Walter MD Signed HYSTERECTOMY SPECIMEN Observed: 10/15/2017 Status: F Source: [place] 12:00 PM [facility] REPOSITORY Patient: JUNIOR CONTE : 1965 (52/F) Acct Num: [id number] Phys: Felicity Bryan MD Unit Num: [id number] Loc: MS3 [id number] Specimen: [id number] Received: 10/16/17814 Spec Type: HYSTERECT TISSUES TISSUES: Uterus, NOS GROSS DESCRIPTION Received in fixative is one container labeled with the patient's name and designated uterus. The specimen consists of a uterus with attached cervix and attached right and left fallopian tubes and ovaries. The fallopian tubes are dyschronous in their mid portion consistent with previous tubal ligation. The uterus with cervix measures 11 x 7.8 x 5.2 cm and weighs 174 gm. The ectocervix is unremarkable and the cervical os is oval in contour. The endocervical canal measures 3 cm in length and is grossly unremarkable. The triangular endometrial cavity measures 5 x 3.5 cm. The endometrium is reddish-schmitt, velvety and glistening and measures up to 0.2 cm in thickness. The myometrium measures 2.5 cm in average thickness and is distorted by multiple spherical rubbery nodules consistent with leiomyomas. The nodules are submucosal, intramural and subserosal in location. On cut sections, the nodules reveal whorled appearances without areas of cyst formation or necrosis. The nodules range in size from 0.2 to 1.6 cm in greatest dimension. The right ovary is pink- schmitt and has a smooth, glistening external surface and measures 3.5 x 2.5 x 2 cm. Serial sections reveal multiple cysts containing clear to bloody fluid. The cysts range in size from 0.5 to 1.2 cm in greatest dimension. The right fallopian tube measures 6 cm in length and 0.7 cm in diameter. The left ovary is similar in appearance and measures 3 x 2.6 x 1.8 cm. Serial sections reveal multiple cysts ranging in size from 0.2 to 0.5 cm and containing bloody fluid. The fallopian tube is similar in appearance to the right tube and measures 5 cm in length and 0.6 cm in average diameter. The fimbriated ends on both fallopian tubes are grossly unremarkable. Diamond Setter Apprentice sections are submitted in ten cassettes as follows : 1 - anterior cervix, 2 - posterior cervix, 3 AND 4 - anterior uterine wall, 5 AND 6 - posterior uterine wall, 7 AND 8 myometrial nodules, 9 right fallopian tube and ovary, 10 left fallopian tube and ovary. / AM:rg 10/16/17 TC:1 CPT: 28437 HEADER OPERATION: Lap robotic hysterectomy salpingectomy, poss. oophorectomy PRE-OP DIAGNOSIS: Abnormal uterine and vaginal bleeding TISSUE SUBMITTED: Uterus, cervix, bilateral fallopian tubes and ovaries MICROSCOPIC DESCRIPTION Slides are reviewed. MICROSCOPIC DIAGNOSIS Uterus, hysterectomy: Cervix nabothian cysts, squamous metaplasia and mild chronic inflammation. Endometrium weakly proliferative to inactive endometrium. Myometrium leiomyomas and focal adenomyosis. Right ovary hemorrhagic corpus luteal cysts and corpora albicantia. Right fallopian tube - no pathologic change. Left ovary benign epithelial cysts and corpora albicantia. Left fallopian tube - no pathologic change. AM:rg 10/17/17 Signed [place] [facility] 10/17/17 <signature on file> Performed By: #### PHYST #### [facility] [address] [place], [place], [address] TYPE AND SCREEN Collected: 10/15/2017 Status: F Source: [place] 11:20 AM [facility] REPOSITORY Order Comment: Reason for Type AND Screen/Red Cells: SURGERY TYPE CODE TESTS RESULT OUT OF RANGE REFERENCE UNITS LAB B10.0800 O Normal BLOOD TYPE GEL POSITIVE LAB B100.4000 Normal Antibody NEGATIVE Screen Performed By: #### L500.2500, B101.7450 #### [facility] [address] [place], [address] BASIC METABOLIC Collected: 10/15/2017 Status: F Source: [place] PROFILE (BMP) 11:04 AM [facility] REPOSITORY TYPE CODE TESTS RESULT OUT OF RANGE REFERENCE UNITS LAB L501.0100 74-106 mg/dL High GLU 126 Result Comment: Fasting Glucose result greater than or equal to 126 mg/dL suggests DIABETES MELLITUS per A.D.A. criteria. Please note revised GLUCOSE reference range effective 2017. LAB L501.1000 7-18 mg/dL Normal BUN 13 LAB L501.1100 0.55-1.02 mg/dL Normal CREAT,SERUM 0.85 Result Comment: The validity of the calculated GFR AND GFRAA in patients over 70 years has not been determined. Clinical correlation is essential. LAB L501.1110 >60 mL/min Normal EST GFR 75 Result Comment: Non- GFR Calc LAB L501.1115 >60 mL/min Normal EST GFR - AA 91 Result Comment: GFR Calc LAB L501.1255 ml/min Normal Estimated CRCL 64.77 LAB L501.1300 10-20 RATIO Normal BUN/CRE 15.3 LAB L501.2200 8.5-10 mg/dL Normal .1 CA 8.9 LAB L501.5300 136-14 mmol/L Normal 5 NA 139 LAB L501.5600 3.5-5. mmol/L Normal 1 K 4.2 LAB L501.5900 98-107 mmol/L High CL 108 LAB L501.6100 21.0-3 mmol/L Normal 2.0 CO2 21.0 LAB L501.6200 5-15 Normal GAP 10 Performed By: #### L500.2500, B101.7450 #### [facility] [address] [place], [place], [address] ,URINE Collected: 10/15/2017 Status: F Source: [place] 10:40 AM [facility] REPOSITORY TYPE CODE TESTS RESULT OUT OF REFERENCE UNITS RANGE LAB L400.8000 Negative Normal HCGUQUAL Negative Result Comment: Very dilute urine specimens, as indicated by a low specific gravity, may not contain product representative levels of hCG. If is still suspected, a first morning urine specimen should be collected 48 hours later and tested. Performed By: #### L400.7600 #### [facility] [address] [place], [address] SURGERY VISIT REPORT Observed: 09/26/2017 Status: F Source: [place] 10:58 AM [facility] REPOSITORY [facility] [address] [place] [address] OFFICE VISIT Date of Service: 09/26/17 MR#: [id number] Acct: [id number] Name: JUNIOR CONTE Rep #: [id number] : 1965 Provider: Carlos Vazquez MD Age/Sex: 52/F Location: [facility] Status: Signed Intake Intake Visit Reasons: Discuss CT scan/incisional hernia Chief Complaint: discuss CT Administrative Resources Associate Required: No Is patient in pain?: No Allergies Tetanus Vaccines and Toxoid [Tetanus Vaccines AND Toxoid] Allergy (Verified 09/26/17 08:28) Rash codeine Adverse Reaction (Verified 09/26/17 08:28) Other Medications Magnesium 250 mg PO DAILY 02/06/17 [History Confirmed 09/26/17] Multivitamin [Daily Multiple Vitamin] 1 ea PO DAILY 02/06/17 [History Confirmed 09/26/17] traMADol [Ultram (G)] 25 mg PO Q6H PRN PRN 02/06/17 [History Confirmed 09/26/17] Progesterone,Micronized [Prometrium] 400 mg PO QHS #60 cap 02/08/17 [Rx Confirmed 09/26/17] Naproxen [Naprosyn] 500 mg PO DAILY PRN PRN 06/18/17 [History Confirmed 09/26/17] Is last menstrual period known: No Post menopausal: Yes Patient : No PFSH Medical History Endometrial thickening on ultra sound (Acute) Irregular menstrual bleeding (Acute) GERD (gastroesophageal reflux disease) (Acute) H/O flexible sigmoidoscopy (Acute) Obesity (Acute) Surgical History S/P carpal tunnel release (Acute) S/P section (Acute) S/P dilation and curettage (Acute) S/P hernia repair (Acute) S/P tubal ligation (Acute) Family History Father Diabetes Heart disease Hypertension Cancer bladder Mother Diabetes Hypertension DVT (deep venous thrombosis) Grandfather Colon cancer Social History Smoking Status: Never smoker HPI HPI HPI: JUNIOR CONTE, is a 52 F who presents to the office today for follow-up from her CAT scan to evaluate her incisional hernia. This is a significant defect and she will require a piece of mesh almost the size of a piece of paper. The CAT scan showed a midline pelvic ventral hernia containing omental fat and several nondistended loops of large and small intestine. Patient is currently in actively being worked up to undergo a robotic hysterectomy and I have spoken with Dr. Menezes and have recommended that a combined procedure of hernia repair with mesh is contraindicated in this patient. Exam GI Other: Large incisional hernia is identified near the umbilical area Assessment AND Plan Problems 1. 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 At that time we will then discuss the exact procedure that I am going to perform on her. Coding Level of Care Code Off vis,est,level 2 Diagnoses Incisional hernia, without obstruction or gangrene K43.2; K43.91 Obstruction and gangrene presence: without obstruction or gangrene 09/26/17 1058 <Electronically signed by Carlos Vazquez MD> Date Carlos Vazquez MD [facility] Signature: Date (if applicable) CC: Felicity Bryan MD; Adan Walter MD ABDOMEN/PELVIS WITH Observed: 09/24/2017 Status: F Source: [place] CONTRAST 10:12 AM [facility] REPOSITORY [facility] Imaging Services [address] [place] [address] Abdomen/Pelvis WITH Contrast MR#: [id number] Acct: [id number] Name: JUNIOR CONTE Rep #: [id number] : 1965 F 52 From: Kennedy Moss MD PCP: Adan Walter MD Status: REG CLI Study: Abdomen/Pelvis WITH Contrast Date of Exam: 09/24/17 Exam# [id number] Ordering Dr: Carlos Vazquez MD STUDY: CT ABDOMEN AND PELVIS WITH CONTRAST REASON FOR EXAM: Female, 52 years old. Incisional hernia RADIATION DOSAGE (If Supplied By Facility): CTDIvol = ( 33.7 ) mGy, DLP = ( 1232.71 ) mGycm TECHNIQUE: Transaxial images were obtained from the dome of the diaphragm to the symphysis pubis without oral contrast. 100 ml of Isovue 300 contrast was administered. Sagittal and coronal images were reconstructed. Individualized dose optimization techniques were used for this CT. COMPARISON: None. FINDINGS: The visualized lung bases are unremarkable. The visualized portions of the heart are within normal limits. Normal liver. Calcific sludge is seen in the gravity dependent portion of the gallbladder. Normal spleen. Normal pancreas. Normal bilateral adrenal glands. Normal right kidney. Normal left kidney. There is a small hiatal hernia. Normal small intestine. Normal colon. There is non-visualization of the appendix. There are several small calcified atheromatous plaques of the abdominal aorta. Normal inferior vena cava. Normal retroperitoneum. The urinary bladder is nearly empty. The uterus and adnexal structures are unremarkable. There is a midline pelvic ventral hernia containing omental fat and several nondistended loops of large and small bowel. Bowel. There are diffuse degenerative changes of the visualized thoracolumbar spine. CT/Abdomen/Pelvis WITH Contrast IMPRESSION: 1. Midline pelvic ventral hernia containing omental fat and several nondistended loops of large and small bowel. 2. Calcific sludge is seen within the gallbladder. 3. Small hiatal hernia. 4. Diffuse degenerative changes of the visualized thoracolumbar spine. Electronically Signed: Kennedy Moss MD at 21:56 EDT , Service support , CC: Adan Walter MD; Carlos Vazquez MD Production Control Expediter: Signed CBC W/DIFF, AUTOMATED Collected: 09/18/2017 Status: F Source: [place] 12:00 PM [facility] REPOSITORY TYPE CODE TESTS RESULT OUT OF RANGE REFERENCE UNITS LAB L100.1000 4.4-11.0 K/mm3 Normal WBC 8.2 LAB L100.1200 4.2-5.4 M/mm3 Low RBC 4.06 LAB L100.1300 12.0-15.0 g/dl Normal HGB 12.8 LAB L100.1400 37-47 % Normal HCT 38.6 LAB L100.1500 81-99 fL Normal MCV 95.1 LAB L100.1600 27.0-32.0 pg Normal MCH 31.5 LAB L100.1700 32-36 g/gl Normal MCHC 33.2 LAB L100.1810 11.6-14.6 % Normal RDW CV 12.9 LAB L100.1820 35.1-43.9 fl Normal RDW SD 43.8 LAB L100.1900 150-450 K/mm3 Normal PLT 306 LAB L100.2000 6.2-12.0 fl Normal MPV 10.8 LAB L100.2100 47-70 % Normal NEUT% 60.9 LAB L100.2200 19-41 % Normal LY% 30.1 LAB L100.2300 0-10 % Normal MONO% 6.9 LAB L100.2400 0-5 % Normal EO% 1.6 LAB L100.2500 0-1 % Normal BASO% 0.4 LAB L100.2550 0.0-0.9 % Normal IM GRAN % 0.100 Result Comment: IG% - Immature Granulocytes (promyelocytes, myelocytes and metamyelocytes) > 1% indicates that a LEFT SHIFT is Present. LAB L100.2620 2.0-7.7 X10 3/uL Normal Absolute Neut 5.0 LAB L100.2720 0.83-4.51 X10 3/ul Normal Absolute Lymph 2.46 Performed By: #### L100.0100 #### [facility] [address] [place], [place], [address] PROTHROMBIN TIME W/INR Collected: 09/18/2017 Status: F Source: [place] 12:00 PM [facility] REPOSITORY TYPE CODE TESTS RESULT OUT OF RANGE REFERENCE UNITS LAB L300.4150 11.7-14.9 SECONDS Normal PROTIME 13.7 LAB L300.4200 Normal INR 1.1 Performed By: #### L300.3900, L300.4310 #### [facility] [address] [place], [place], [address] PARTIAL THROMBOPLAST Collected: 09/18/2017 Status: F Source: [place] TIME 12:00 PM [facility] REPOSITORY TYPE CODE TESTS RESULT OUT OF RANGE REFERENCE UNITS LAB L300.4310 24.1-36.2 Seconds Normal PTT 32.0 Performed By: #### L300.3900, L300.4310 #### [facility] [address] [facility] [place], [address] BASIC METABOLIC Collected: 09/18/2017 Status: F Source: [place] PROFILE (BMP) 12:00 PM [facility] REPOSITORY TYPE CODE TESTS RESULT OUT OF RANGE REFERENCE UNITS LAB L501.0100 74-106 mg/dL Normal GLU 103 Result Comment: Fasting Glucose result from 100 to 125 mg/dL suggests IMPAIRED HOMEOSTASIS per A.D.A. criteria. Please note revised GLUCOSE reference range effective 2017. LAB L501.1000 7-18 mg/dL Normal BUN 18 LAB L501.1100 0.55-1.02 mg/dL Normal CREAT,SERUM 0.78 Result Comment: The validity of the calculated GFR AND GFRAA in patients over 70 years has not been determined. Clinical correlation is essential. LAB L501.1110 >60 mL/min Normal EST GFR 82 Result Comment: Non- GFR Calc LAB L501.1115 >60 mL/min Normal EST GFR - AA 100 Result Comment: GFR Calc LAB L501.1300 10-20 RATIO High BUN/CRE 23.0 LAB L501.2200 8.5-10.1 mg/dL CA Normal 9.2 LAB L501.5300 136-145 mmol/L NA Normal 140 LAB L501.5600 3.5-5.1 mmol/L K Normal 4.0 LAB L501.5900 98-107 mmol/L CL Normal 106 LAB L501.6100 21.0-32.0 mmol/L Normal CO2 25.0 LAB L501.6200 5-15 Normal GAP 9 Performed By: #### L500.2500 #### [facility] [address] [facility], [address] CHEST PA AND LATERAL Observed: 09/18/2017 Status: F Source: [place] 11:58 AM [facility] REPOSITORY [facility] Imaging Services [address] [place] [address] Chest PA and Lateral MR#: [id number] Acct: [id number] Name: JUNIOR CONTE Rep #: [id number] : 1965 F 52 From: Prabhakar May MD PCP: Adan Walter MD Status: REG CLI Study: Chest PA and Lateral Date of Exam: 09/18/17 Exam# [id number] Ordering Dr: Mookie Walter MD STUDY: X-RAY CHEST REASON FOR EXAM: Female, 52 years old. Preop for hysterectomy TECHNIQUE: PA and lateral views of the chest. COMPARISON: 2014 FINDINGS: The lungs are clear and expanded. There is no demonstrated pleural abnormality. Normal size heart. Normal mediastinum and carri. Normal visualized pulmonary arteries. Normal visualized aortic arch and descending thoracic aorta. There are diffuse degenerative changes of the visualized thoracic spine. Normal visualized ribs, clavicles, and shoulders. There is no demonstrated abnormality of the visualized soft tissue structures of the upper abdomen. RAD/Chest PA and Lateral IMPRESSION: No acute pulmonary process Electronically Signed: Mike May MD at 12:10 EDT , Service support , CC: Adan Walter MD Production Control Expediter: Signed SURGERY VISIT REPORT Observed: 09/14/2017 Status: F Source: [place] 4:32 PM [facility] REPOSITORY [facility] [address] [place] [address]. [address] [place] [address] OFFICE VISIT Date of Service: 09/10/17 MR#: [id number] Acct: [id number] Name: JUNIOR CONTE Rep #: [id number] : 1965 Provider: Carlos Vazquez MD Age/Sex: 52/F Location: [facility] Status: Signed Intake Vital Signs07/17/18 Height 5 ft 3 in 09/10/17 Weight: 312 lb 2 oz 09/10/17 Body Mass Index (BMI) 55.3 Intake Visit Reasons: Hernia Consult Chief Complaint: umbilical hernia Administrative Resources Associate Required: No Is patient in pain?: No Allergies Tetanus Vaccines and Toxoid [Tetanus Vaccines AND Toxoid] Allergy (Verified 09/10/17 08:38) Rash codeine Adverse Reaction (Verified 09/10/17 08:38) Other Medications Magnesium 250 mg PO DAILY 02/06/17 [History Confirmed 09/10/17] Multivitamin [Daily Multiple Vitamin] 1 ea PO DAILY 02/06/17 [History Confirmed 09/10/17] traMADol [Ultram (G)] 25 mg PO Q6H PRN PRN 02/06/17 [History Confirmed 09/10/17] Progesterone,Micronized [Prometrium] 400 mg PO QHS #60 cap 02/08/17 [Rx Confirmed 09/10/17] Naproxen [Naprosyn] 500 mg PO DAILY PRN PRN 06/18/17 [History Confirmed 09/10/17] Is last menstrual period known: No Post menopausal: No Patient : No PFSH Medical History Endometrial thickening on ultra sound (Acute) Irregular menstrual bleeding (Acute) GERD (gastroesophageal reflux disease) (Acute) H/O flexible sigmoidoscopy (Acute) Obesity (Acute) Surgical History S/P carpal tunnel release (Acute) S/P section (Acute) S/P dilation and curettage (Acute) S/P hernia repair (Acute) S/P tubal ligation (Acute) Family History Father Diabetes Heart disease Hypertension Cancer bladder Mother Diabetes Hypertension DVT (deep venous thrombosis) Grandfather Colon cancer Social History Smoking Status: Never smoker HPI HPI HPI: JUNIOR CONTE, is a 52 F who presents to the office today for evaluation for an incisional hernia. I have actually seen Lashae many years ago and at that time she had a small incisional hernia at her umbilicus. She is in the process of getting worked up for a hysterectomy and Dr. Bryan was hoping that there can be a combined approach to repair her incisional hernia as well as do a hysterectomy. Patient has not had any change in her bowel or bladder habits. She states that she has gained some weight. She states that the hernia itself has gotten larger. The patient has not had any recent imaging in the form of the CAT scan of her abdomen to delineate the true size of this hernia. ROS General General: Yes fatigue; no weight change, appetite, colon cancer, breast cancer or weakness HEENT HEENT: No difficulty swallowing, eye injury, eye surgery, swollen glands or hoarseness Endo Endocrine: No thyroid disease, diabetes mellitus, thyroid cancer, Hair loss, heat intolerance or cold intolerance Musc Musculoskeletal: No back problems, arthritis, rheumatoid arthritis, gout or joint pain Cardio Cardiovascular: No murmur, pacemaker, heart disease, atrial fibrillation, high blood pressure, heart attack, heart stent, palpitations, shortness of breat with exertion or chest pain Resp Respiratory: No shortness of breath, No sleep apnea, No cough, No COPD, No asthma, No emphysema, No wheezing Gastro Gastrointestinal: No abdominal pain, No nausea or vomiting, No diarrhea, No constipation, No blood in stool, Yes acid reflux, No hemorrhoids, No ulcers, No gallbladder problem, No black,tarry stools Jaron Hematologic: No blood thinners, No blood disorders, No bleeding, No anemia, No blood clots Neuro Neurologic: No weakness Exam Const General: well developed, no acute distress, well hydrated Orientation: oriented to person, oriented to place, oriented to time [facility] Head: normocephalic, atraumatic Ears: external ears normal Mouth: moist mucous membranes Eyes Sclera: sclerae normal Pupils: normal by confrontation Neck Neck: no lymphadenopathy noted Neck mass: No Thyroid: symmetrical, thyroid normal Chest Chest palpation AND inspection: normal inspection of the chest Resp Effort AND Inspection: normal respiratory effort Auscultation: clear to auscultation bilaterally Percussion: percussion normal Cardio Rate: regular rate Rhythm: regular rhythm Heart Sounds: no murmurs GI Inspection: large pannus, obesity, visible herniation Palpation: soft, tender, no masses, no hepatosplenomegaly Rectal Exam: other Other: A large incisional hernia originating from her umbilicus is identified. It is partially reducible. But not completely reducible. Rectal exam deferred. Extrem General: no clubbing, cyanosis or edema, normal to inspection Assessment AND Plan Problems 1. Incisional hernia, without obstruction or gangrene K43.2; K43.91 Plan Is very clear that the patient does need to have an incisional herniorrhaphy. However due to with size and her obesity I think that it is contraindicated to do a combined approach with a hysterectomy and a herniorrhaphy that will obviously require a large piece of mesh. This is unfortunately not something that I think I can do laparoscopically. There could be a case to do some tissue component separation at the time of her hysterectomy and bring the tissue together that way. Prior to any surgery am going to obtain a CAT scan of the abdomen and pelvis to delineate the true size of this hernia. Orders Orders: Coding Level of Care Code Off vis,new,level 3 Diagnoses Incisional hernia, without obstruction or gangrene K43.2; K43.91 Obstruction and gangrene presence: without obstruction or gangrene 09/14/17 1632 <Electronically signed by Carlos Vazquez MD> Date Carlos Vazquez MD [facility] Signature: Date (if applicable) CC: Felicity Bryan MD; Adan Walter MD PT D/C SUMMARY (1) Observed: 07/23/2017 Status: F Source: [place] 4:58 PM [facility] REPOSITORY [facility] Physical Therapy [address] [place], [place] [address] Fax REHABILITATION SERVICES DISCHARGE SUMMARY MR#: [id number] Acct: [id number] Name: JUNIOR CONTE Rep #: [id number] : 1965 52 From: Brooklyn Goins DPT Referring DrMitchell: Jef Bloom DO Status: REG RCR Insurance: [employer]ANCE HP - PT D/C Summary It has been my pleasure to treat JUNIOR CONTE under orders from Jef Bloom DO, for the diagnosis of Right Knee Scope for a total of 4 visit(s). Discharge Date: Please see the following information for a summary of their discharge status. - Subjective Subjective: Some days she is better than others- Pain with walking is 5/10- Does feel like its getting better. - Pain right knee Pain Intensity (Out of 10): 4 - Objective Objective/Function: Posture: FH, RS, Increased kyphosis- pt is overweight. Gait: WFL. Stairs:asc/desc 8 recip with 2 HR. HR/TR: able SLS: 15 sec then LOB Palpation: tender along medial joint line. ROM: 10-95 (equal to non surgical LE). Strength: ankle: 5/5, Knee: 5/5, Hip: 5/5 Core: poor. Flex: HS: mod, Gastroc: mod - Goals Goal 1:: Patient will be I with HEP and progression Goal Progress: Goal Met Goal 2:: Patient will ambulate >300 feet with a normalized gait pattern Goal Progress: Goal Met Goal 3:: Patient will asc/desc 8 stairs recip with 1 HR Goal Progress: Goal Met Goal 4:: Patient will report 0/10 pain for 1 week to ease ADL's and return to HEP in gym Goal Progress: Progressing - Plan Plan: Discharge to I HEP - D/C Information If there are questions or concerns regarding this patient's physical therapy, please feel free to call me at [phone]. Thank you for the referral of this patient. Sincerely, Brooklyn Goins <Electronically signed by Brooklyn Goins DPT> 07/23/17 1658 CC: Adan Walter MD; Jef Bloom DO ELR Signed TRANSVAGINAL Observed: 07/17/2017 Status: F Source: [place] NON- 3:20 PM [facility] REPOSITORY [facility] Imaging Services [address] [place] [address] Transvaginal Non- MR#: [id number] Acct: [id number] Name: JUNIOR CONTE Rep #: [id number] : 1965 F 52 From: Cl James MD PCP: Ranney MD,Christopher Status: REG CLI Study: Transvaginal Non- Date of Exam: 07/17/17 Exam# [id number] Ordering Dr: Felicity Bryan MD STUDY: ULTRASOUND TRANSVAGINAL CLINICAL: Female, 52 years old. AUB TECHNIQUE: Transvaginal COMPARISON: 01/09/2017 FINDINGS: The uterus measures 10.2 x 5.2 x 5.4 cm. Normal uterine cervix. The endometrium measures 10 mm in thickness, and is normal in echotexture. There is no demonstrated endometrial mass. There is no demonstrated myometrial mass. Normal appearance of the cervix. The right ovary measures 2.1 x 2.2 x 1.4 cm. There is no right ovarian cyst or ovarian mass. There is no visualized right adnexal mass or complex lesion. There is normal arterial and normal venous vascularity. The left ovary is not well seen. Bilaterally there is no adnexal mass or suspicious cyst or adnexal free fluid. There is no fluid in the cul-de-sac. US/Transvaginal Non- IMPRESSION: No acute intrapelvic process is evident. Left ovary is not visible. Electronically Signed: Cl Erika, at 16:29 EDT Tel , Service support , CC: Felicity Bryan MD; Adan Walter MD Production Control Expediter: Signed ESTRADIOL Collected: 07/05/2017 Status: F Source: [place] 2:39 PM [facility] REPOSITORY TYPE CODE TESTS RESULT OUT OF RANGE REFERENCE UNITS LAB L3300.1750 pg/mL Normal ESTRADIOL 125.8 Result Comment: NORMAL REFERENCE RANGES FEMALE FOLLICULAR 21.4 - 164.8 pg/mL MID-CYCLE PEAK 49.9 - 367.2 pg/mL LUTEAL 40.2 - 259.0 pg/mL POST-MENOPAUSAL ON MHT <11.0 - 462.1 pg/mL NOT ON MHT <11.0 - 58.3 pg/mL MALE <11.0 - 52.5 pg/mL NOTE: [facility] HAS CONFIRMED THE DRUG FULVETRANT (FASLODEX) MAY CAUSE FALSELY ELEVATED ESTRADIOL RESULTS WHEN USING THIS TEST METHOD. IF PATIENT IS TAKING FULVESTRANT AN ALTERNATIVE METHOD SHOULD BE USED TO DETERMINE ESTRADIOL CONCENTRATION. Performed By: #### L3300.1750 #### [facility] [address] [place], [address] PROGESTERONE LEVEL Collected: 07/05/2017 Status: F Source: [place] 2:39 PM [facility] REPOSITORY TYPE CODE TESTS RESULT OUT OF REFERENCE UNITS RANGE LAB L509.4001 See Comment ng/mL Progesterone Normal 15.72 Result Comment: Progesterone Reference Table: UNITS Female: Follicular 0.15 - 1.40 ng/mL Luteal 3.34 - 25.56 ng/mL Mid-luteal 4.44 - 28.03 ng/mL Postmenopausal 0.0 - 0.73 ng/mL : 1st Trimester 11.22 - 90.00 ng/mL 2nd Trimester 25.55 - 89.40 ng/mL 3rd Trimester 48.40 -422.50 ng/mL Performed By: #### L509.4001 #### [facility] [address] [place], [address] HEMOGLOBIN A1C Collected: 07/05/2017 Status: F Source: [place] 2:39 PM [facility] REPOSITORY TYPE CODE TESTS RESULT OUT OF RANGE REFERENCE UNITS LAB L501.9985 4.2-6.3 % Normal HGB A1C 5.9 Performed By: #### L501.9985 #### [facility] [address] [place], [address] INITAL EVALUATION (1) Observed: 07/01/2017 Status: F Source: [place] - PT 9:43 AM [facility] REPOSITORY [facility] Physical Therapy [address] [place] [address] Fax REHABILITATION SERVICES INITIAL EVALUATION MR#: [id number] Acct: [id number] Name: JUNIOR CONTE Rep #: [id number] : 1965 52 From: Brooklyn Goins DPT Referring DrMitchell: Jef Bloom DO Status: REG RCR Insurance: [employer] SELF PAY INSURANCE Patient's Visit Information JUNIOR CONTE is a 52 year old F referred to Physical Therapy by Jef Bloom DO with a diagnosis of Right Knee Scope. Date of Evaluation: 07/01/17 Physical Therapist: Brooklyn Goins - Visit Plan Frequency: 2x /Week Duration: 3 Weeks Plan: Focus on LE and core s/s with functional mobility- Knee Scope 06/25/17 - Subjective Subjective: Patient reports that she has a knee scope 06/25- felt really good and then the block wore off and she has been in a lot of pain. Has not had to take pain meds for the last 2 days. Pain is located in the right knee- Mostly dull and achy. She has been up and moving. Worst: 5/10 Agg: walking on it a lot Eases: ice, elevation, rest. Best: 0/10. No radiating pain- No N/T. Sleep: a little bit disturbed- rolling back and forth. Work: [employer]. Has been doing [employer]- coming 2x a week to and doing a routine. PMHx: none Meds: Progesterone - Objective Posture: FH, RS, Increased kyphosis- pt is overweight. Gait: antalgic- decreased stance time on the right LE- poor heel/toe pattern. Stairs:asc/desc 8 non recip with 2 HR. HR/TR: able but reports discomfort with TR. SLS: 2 sec then LOB and uses UE to right herself- reports afraid of pain. Palpation: tender along medial joint line. Observation: 2 sutures still intact- no s/s of infection. ROM: 10-95 (equal to non surgical LE). Strength: ankle: 5/5, Knee: 4+/5, Hip: 4+/5 Core: poor. Flex: HS: mod, Gastroc: mod - Goals Goal 1:: Patient will be I with HEP and progression Goal Time Frame: 4-6 Weeks Goal 2:: Patient will ambulate >300 feet with a normalized gait pattern Goal Time Frame: 4-6 Weeks Goal 3:: Patient will asc/desc 8 stairs recip with 1 HR Goal Time Frame: 4-6 Weeks Goal 4:: Patient will report 0/10 pain for 1 week to ease ADL's and return to HEP in gym Goal Time Frame: 4-6 Weeks - Rehabilitation Potential Physical Therapy Diagnosis: Patient presents with hypomobility s/p right knee scope- she has decreased strength and muscular endurance leading to abnormal gait pattern and increased pain Rehabilitation Potential: Good - Anticipated Interventions Patient/Client Instruction: Educate patient on: Benefits of Fitness Program For the Purpose of:: To increase tolerance to activity/condition/position Therapeutic Exercise to Include: Strength training, Endurance training, Balance training, Agility training, Body mechanics, Postural training, Flexibilty training, Gait and locomotor training, Passive ROM, Active ROM, Dynamic Lumbar Stabilization For the Purpose of:: To improve muscle performance and motor function TENS: Yes Cryotherapy (ice pack, ice massage): Yes Thermo therapy (hot pack): Yes Ultrasound (thermal/non thermal): Yes For the Purpose of:: To decrease pain Thank you for the opportunity to evaluate your patient. For Medicare and Medicare HMO plans, please review the plan of care and approve it. It will need to be FAXED BACK to us at [phone] for Medicare purposes. Please let me know if there are questions or concerns regarding this plan of care. Physician Signature: Date: <Electronically signed by Brooklyn Goins DPT> 07/01/17 0943 CC: Adan Walter MD; Jef Bloom DO ELR Signed For Medicare only, by signing this I certify the plan of care. Physicians Signature Date OPERATIVE REPORT Observed: 06/24/2017 Status: F Source: [place] 10:06 AM [facility] REPOSITORY [facility] Medical Records Department [address] [place] [address] Operative Report 06/24/17 1002 MR#: [id number] Acct: [id number] Name: JUNIOR CONTE Rep #: [id number] : 1965 52 From: Jef Bloom DO PCP: Adan Walter MD Status: REG SD Y Location: [place] [address] Report of Operation Date of Procedure: 06/24/17 Pre-Operative Diagnosis: Osteoarthritis right knee Post-Operative Diagnosis: Same with posterior horn medial meniscus tear Surgery/Procedure Performed:: Diagnostic and operative arthroscopy of the right knee with partial medial meniscectomy chondroplasty medial femoral condyle Description of Surgical Findings:: Grade 3 osteoarthritis medial femoral condyle, posterior horn medial meniscus tear, grade 2 patellofemoral joint Type of Anesthesia:: Spinal Anesthesiologist: Freeman Sánchez Estimated Blood Loss (mL): 5 Fluids Replaced: See anesthesia report Description of Procedure: Indications: Patient has failed conservative measures and at this point has elected to undergo the above procedure. Procedure description: The patient was greeted in the preoperative area. The right knee was marked with surgical marker. Preoperative antibiotics were administered. The patient was then taken to the operating suite and placed in a supine position on operating room table. After adequate anesthesia was obtained and airway was secured a well-padded tourniquet was placed on patient's affected extremity. Leg was then prepped and draped in usual sterile fashion. Surgical timeout was performed and confirmed with all present and surgery was commenced. Standard anteromedial anterolateral portals were made and a 30 arthroscope was then inserted into the knee. This revealed grade 2 changes in the undersurface of the patella. Patellar tracking is normal. I did perform chondroplasty of the undersurface of the patella. No loose bodies were noted in the medial or lateral gutters. Medial compartment was then entered which revealed grade 3 changes in the weightbearing surface of the medial femoral condyle. Abrasion chondroplasty was also performed here removing any unstable articular cartilage. Patient did have a complex large tear of the posterior horn of the medial meniscus. I did trim this removing approximately 75% of the posterior horn of medial meniscus with combination of meniscal biters as well as the shaver. This was trimmed and debrided to nice stable meniscal rim. At this point the intercondylar notch was entered which revealed normal intact ACL. Lateral compartment was then entered which revealed pristine articular cartilage and normal lateral meniscus. At this point all instruments were removed. Arthroscopic portals were closed in a standard fashion. 30 cc of 0.5% Marcaine was then injected into the knee. Well-padded nonadherent dressing was applied and secured with an Lon wrap. Tourniquet was deflated and patient was taken to the recovery room in stable condition. - Admit VTE Documentation VTE Present on Admission: No VTE Mechan Device Prophylaxis: SCD's VTE Pharm Prophylaxis ordered?: Yes 06/24/17 1006 <Electronically signed by Jef Bloom DO> Date Jef Bloom DO CC: Adan Walter MD; Jef Bloom DO Signed DISCHARGE INSTRUCTION Observed: 06/24/2017 Status: F Source: [place] 10:02 AM [facility] REPOSITORY [facility] Medical Records Department [address] [place] [address] Instructions for Home/Discharge Instructions 06/24/17 0959 MR#: [id number] Acct: [id number] Name: JUNIOR CONTE Rep #: [id number] : 1965 52 From: Jef Bloom DO PCP: Adan Walter MD Status: REG [facility] Discharge Diet: No Restrictions Discharge Activity: May Not Drive May shower in (days): 3 Ice area for (Minutes): 20 - Ice area for 20 minutes each hour while awake Weight Bearing Status: Weight bearing as tolerated Keep extremity elevated above heart level: Operative Extremity Call your doctor if your incision/area has: Continuous Slow Oozing, Sudden Increased Bleeding, Increased Pain/ Swelling, Increased Redness, Foul Smelling Discharge Call your doctor if you observe: Fever of 101 or Higher, Coldness, Increased Pain, Numbness or Tingling, Change in Color Change Dressing in (Days):: 3 Remove Dressing in (days):: 3 Cleanse incision/area with: Soap AND Water - after dressing removed Allergies/Adverse Reactions: Allergies Tetanus Vaccines and Toxoid [Tetanus Vaccines AND Toxoid] Allergy (Verified 06/18/17 14:50) Rash codeine Adverse Reaction (Verified 06/18/17 14:50) Other HEART RACING Medications to take at Discharge Magnesium 250 mg PO DAILY 02/06/17 Multivitamin [Daily Multiple Vitamin] 1 each PO DAILY 02/06/17 Transfactor 1 tab PO DAILY 02/06/17 traMADol [Ultram (G)] 25 mg PO Q6H PRN PRN 02/06/17 Progesterone,Micronized [Prometrium] 400 mg PO QHS #60 cap 02/08/17 Pantoprazole Sodium [Protonix] 40 mg PO DAILY #30 tab 02/12/17 Naproxen [Naprosyn] 500 mg PO DAILY PRN PRN 06/18/17 Hydrocodone Bitart/Apap 5-325 [Surprise 5/325] 1 - 2 tablet PO Q6H PRN PRN 7 Days #40 tablet 06/24/17 The following prescriptions were given: Hydrocodone Bitart/Apap 5-325 [Surprise 5/325] 1 - 2 tablet PO Q6H PRN PRN 7 Days #40 tablet PRN Reason: Mild-Moderate (pain scale 1-5) Please Follow Up With: Jef Bloom DO When: as scheduled 06/24/17 1002 <Electronically signed by Jef Bloom DO> Date Jef Bloom DO CC: Adan Walter MD PT D/C SUMMARY (1) Observed: 05/06/2017 Status: F Source: [place] 10:31 AM [facility] REPOSITORY [facility] Physical Therapy [facility] [address] [place] [address]. [address] [place], [place] [address] Fax REHABILITATION SERVICES DISCHARGE SUMMARY MR#: [id number] Acct: [id number] Name: JUNIOR CONET Rep #: [id number] : 1965 52 From: Brooklyn HERNANDEZT Referring Dr.: Adan Walter MD Status: REG RCR Insurance: [employer]M SELF PAY INSURANCE HP - PT D/C Summary It has been my pleasure to treat JUNIOR CONTE under orders from DR.CRANNE Shilpa for the diagnosis of Trap Strain and Neuritis for a total of 6 visit(s). Discharge Date: Please see the following information for a summary of their discharge status. - Subjective Subjective: Patient reports that she is getting better. She has no pain down the arm and the N/T is completely gone. She feels that she will always have to be aware of her posture. - Overall Improvement % Improvement: 90 - Objective Objective/Function: Posture: good throughout. ROM: WNL in all planes. Strength: Shoulder: 5/5 throughout Scap: fair plus - Goals Goal 1:: Patient will be I with HEP and progression Goal Progress: Goal Met Goal 2:: Patient will maintain proper posture t/o tx session to demo increased scap s/s Goal Progress: Goal Met Goal 3:: Patient will report no N/T for 1 week Goal Progress: Goal Met - Plan Plan: Discharge to I HEP - D/C Information If there are questions or concerns regarding this patient's physical therapy, please feel free to call me at [phone]. Thank you for the referral of this patient. Sincerely, Brooklyn Goins <Electronically signed by Brooklyn Goins DPT> 05/06/17 1031 CC: Adan Walter MD ELR Signed INITAL EVALUATION (1) Observed: 04/05/2017 Status: F Source: [place] - PT 9:59 AM [facility] REPOSITORY [facility] Physical Therapy [facility] [address] [place] [address]. [address] [place] [address] Fax REHABILITATION SERVICES INITIAL EVALUATION MR#: [id number] Acct: [id number] Name: JUNIOR CONTE Rep #: [id number] : 1965 52 From: Brooklyn Goins DPT Referring DrMitchell: Adan Walter MD Status: REG RCR Insurance: [employer] SELF PAY INSURANCE Patient's Visit Information JUNIOR CONTE is a 52 year old F referred to Physical Therapy by Adan GRAHAM with a diagnosis of Trap Strain and Neuritis. Date of Evaluation: 04/05/17 Physical Therapist: Brooklyn Goins - Visit Plan Frequency: 2x /Week Duration: 4 Weeks Plan: Focus on posture and modalities - Subjective Subjective: Patient reports a week before new years the left arm started to ache- not able to stop the ache. Went to the MD who gave her exercises which made them worse. The pain is not as severe. When she uses the arm it goes numb- now the first finger is numb all the time. He pressed and she could feel it in the exact spot. So he sent her to therapy. Her symptoms now- arm still aches and is unable to sleep on the left side. Eases: pain medication, putting her hand behind her back, heating pad. Numbness is in the first finger but when she is more active (typing) the thumb and tingling in the hand. 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 Agg: computer, activity. No pain in the shoulder or neck area. History of neck problems- chronic stiff neck- went to a massage therapist who was able to work it out and she has not had the problems since. She also saw a chiropractor. Took x-rays who thought she had a bad curve of the spine. Does not have recent x-rays of the neck. No injections or medications prescribed for the neck. no symptoms on the right side. Right hand dominate. Sleeping: side- likes to sleep on her back but is unable to breathe so she moves to the other side. She is signed up from the [employer] program and plans to start. PMHx: prediabetic, GERD. Meds: Pantoprazole, Tramadol as needed, Naproxen, Progesterone. - Objective Posture: FH, RS, Increased kyphosis- can not correct even with verbal cueing. Palpation: significant tightness throughout upper trap, cervical paraspinals and medial border of the scapula. ROM: WNL in all planes. Strength: Cervical: 4/5 isometric, Shoulder: 4+/5, Scap: fair minus, Elbow: 5/5, Wrist: 4/5, Major Assembly Lineman: Left: 60,65,60 Right: 80,85,70. Special Test: cervical distraction: positive - Goals Goal 1:: Patient will be I with HEP and progression Goal Time Frame: 4-6 Weeks Goal 2:: Patient will maintain proper posture t/o tx session to demo increased scap s/s Goal Time Frame: 4-6 Weeks Goal 3:: Patient will report no N/T for 1 week Goal Time Frame: 4-6 Weeks - Rehabilitation Potential Physical Therapy Diagnosis: Patient presents with hypomobility- she has poor posture leading to increased pain and numbness/tingling Rehabilitation Potential: Fair - Anticipated Interventions Patient/Client Instruction: Educate patient on: Benefits of Fitness Program For the Purpose of:: To improve performance and independence with ADL's Therapeutic Exercise to Include: Strength training, Endurance training, Body mechanics, Postural training, Scapular Strength/Stabilization For the Purpose of:: To improve muscle performance and motor function TENS: Yes Cryotherapy (ice pack, ice massage): Yes Thermo therapy (hot pack): Yes Ultrasound (thermal/non thermal): Yes For the Purpose of:: To decrease pain Thank you for the opportunity to evaluate your patient. For Medicare and Medicare HMO plans, please review the plan of care and approve it. It will need to be FAXED BACK to us at [phone] for Medicare purposes. Please let me know if there are questions or concerns regarding this plan of care. Physician Signature: Date: <Electronically signed by Brooklyn Goins DPT> 04/05/17 0959 CC: Adan Walter MD ELR Signed For Medicare only, by signing this I certify the plan of care. Physicians Signature Date ESOPHAGUS ONLY Observed: 03/20/2017 Status: F Source: [place] 8:33 AM [facility] REPOSITORY [facility] Imaging Services [address] [place] [address] Esophagus Only MR#: [id number] Acct: [id number] Name: JUNIOR CONTE Rep #: [id number] : 1965 F 52 From: Nakul Collins MD PCP: Adan Walter MD Status: REG CLI Study: Esophagus Only Date of Exam: 03/20/17 Exam# [id number] Ordering Dr: Valeriano Humphrey MD STUDY: X-RAY - ESOPHAGUS (BARIUM SWALLOW) WITH FLUOROSCOPY REASON FOR EXAM: Female, 52 years old. Painful swallowing. TECHNIQUE: 17 view(s) of the esophagus were obtained following swallowing of barium. FLUOROSCOPY TIME (if supplied): (0:24) minutes/seconds COMPARISON: None. FINDINGS: There is no demonstrated esophageal foreign body. There is no demonstrated stricture or mucosal abnormality. Normal gastroesophageal junction, without a demonstrated hiatal hernia. The patient ingested a 12 mm tablet of barium without any difficulty. Normal visualized aortic arch and descending thoracic aorta. Normal visualized pulmonary parenchyma. Normal visualized osseous structures of the thorax. RAD/Esophagus Only IMPRESSION: Normal plain film x-ray examination (barium swallow) of the esophagus. Electronically Signed: Nakul Collins MD at 9:43 EST Tel [phone], Service support , CC: Adan Walter MD; Valeriano Humphrey Production Control Expediter: Signed ALLERGIES ALLERGIES DATE TYPE / CODE NAME / CODE REACTION SEVERITY SOURCE 01/29/2018 Drug Tetanus Rash Unknown [facility] 981857(SNOM Toxoid/[id number] Repository ED CT) 19(RXNORM) 01/29/2018 Drug codeine/[id number] Other Unknown [facility]416 550(RXNORM) [facility] 687912(SNOM Repository ED CT) 01/29/2018 Drug tazobactam/F006 Unknown Unknown [facility]416 721075(RXNORM) [facility] 024334(SNOM Repository ED CT) 01/29/2018 Drug piperacillin/F0 Unknown [facility] 973064[facility] Repository ED CT) ENCOUNTERS ENCOUNTERS ADMIT/DISCHARGE ACCOUNT ADMITTING ENCOUNTER LOCATION SOURCE NUMBER CLASS 03/06/2018/ [id number] [place] [facility] 5 [facility] ing:NS Repository 02/05/2018/ [id number] Ambulatory [place] 8 6 [facility] ing:NS Repository 01/29/2018/ [id number] Ambulatory [facility] [place] 8 8 [facility] Repository 01/13/2018 [id number] Ambulatory [facility] [place] [facility] Repository 01/13/2018/ [id number] [place] [facility] ing:SDCRoom: Repository AC06 01/03/2018/ [id number] Ambulatory [place] 8 2 [facility] ing:NS Repository 12/17/2017/ [id number] Ambulatory [facility] [place] 8 4 [facility] Repository 12/16/2017 [id number] Ambulatory [place] 2 [facility] ing:CT Repository 12/04/2017/ [id number] Ambulatory [facility] [place] 8 0 [facility] Repository 11/28/2017/ [id number] Ambulatory [facility] [place] [facility] 5 [facility] Repository 11/21/2017/ [id number] Ambulatory [facility] [place] [facility] 7 [facility] Repository 11/14/2017/ [id number] [place], [facility] [facility]:DK6Jyab: Repository QD180Gjj: 1 11/14/2017 [id number] Ambulatory [facility] [place] 9 [facility] Repository 11/08/2017/ [id number] Ambulatory [facility] [place] 8 4 [facility] Repository 11/06/2017/ [id number] Ambulatory [place] 8 7 [facility] ing:NS Repository 11/04/2017/ [id number] Ambulatory [facility] [place] [facility] 0 [facility] Repository 11/01/2017/ [id number] Ambulatory [facility] [place] 8 5 [facility] Repository 10/29/2017 [id number] Ambulatory [place] 3 [facility] ing:LABSPEC Repository 10/29/2017 [id number] Ambulatory [facility] [place] 9 [facility] Repository 10/29/2017/ [id number] Ambulatory [facility] [place] [facility] 2 [facility] Repository 10/24/2017/ [id number] Ambulatory [facility]:B [place] 8 3 [facility] Repository 10/24/2017 [id number] [place]ulatory [place] 1 [facility] ing:CT Repository 10/23/2017/ [id number] Ambulatory [facility]:B [place] 8 1 [facility] Repository 10/15/2017 [id number] Felicity Bryan Ambulatory [facility] [place] 0 [facility] Repository 10/15/2017 [id number] Felicity Bryan Ambulatory [facility] [place] [facility] Repository 10/15/2017 [id number] Felicity Bryan Ambulatory [facility] [place] 3 [facility] Repository 10/15/2017 [id number] Felicity Bryan Ambulatory [facility] [place] 6 [facility] Repository 10/15/2017/ [id number] Felicity Bryan Inpatient [place] 8 2 [facility] Center ing:[id number]: Repository [id number]: 1 10/15/2017/ [id number] Ambulatory BMSBuilding:B Raghu 8 0 [place].[facility] Repository 10/08/2017/ [id number] Ambulatory [place] 8 4 [facility] ing:NS Repository 09/26/2017/ [id number] Ambulatory BMSBuilding:B Raghu 8 9 [facility] Repository 09/24/2017 [id number] Ambulatory Raghu [place] 5 [facility] ing:CT Repository 09/18/2017 [id number] Ambulatory [place] 1 [facility] ing:MTLAB Repository 09/12/2017/ [id number] Ambulatory Raghu [place] 8 6 [facility] ing:NS Repository 09/10/2017/ [id number] Ambulatory BMSBuilding:B [place] 8 8 [place].[facility] [facility] Repository 07/23/2017/ [id number] Ambulatory [place] Raghu 8 9 [facility] ing:PT Repository 07/17/2017 [id number] Ambulatory Raghu [place] 3 [facility] ing:US Repository 07/05/2017 [id number] Ambulatory [place] 6 [facility] ing:WOBLAB Repository 06/24/2017/ [id number] Ambulatory Raghu [place] 8 2 [facility] ing:SDC Repository 06/19/2017/ [id number] Ambulatory Raghu [place] 8 8 [facility] ing:NS Repository 05/14/2017/ [id number] Ambulatory [place]hu 8 6 [facility] ing:NS Repository 05/06/2017/ [id number] Ambulatory [place]hu 8 1 [facility] ing:PT Repository 03/20/2017 [id number] Ambulatory [place] 6 [facility] ing:RAD Repository PAYERS PAYERS ENCOUNTER GUARANTOR PAYER SUBSCRIBER SOURCE 03/06/2018 JUNIOR L Primary AC A Raghu [id number] [place] Insurance:ANTHEMPolic STROUDDOB: [facility] Number: [id number] Hospital 05067Ytm: (926) [id number] Repository [phone] (HP) neema Date:6457-21-08VB [id number] [place] [address] 00190TV: 03/06/2018 Secondary NOT GIVENUNK Raghu Insurance:SELF PAY [facility] Number: Effective Repository Date:2018-02-25 02/05/2018 JUNIOR L Primary AC A Raghu [id number] [place] Insurance:ANTHEMPolic STROUDDOB: [facility] [place]: [id number] Hospital 58722Yxu: (330) [id number] Repository [phone] () neema Date:1737-99-62YZ [address] [place] [address] 59762ZU: 02/05/2018 Secondary NOT GIVENUNK Raghu Insurance:SELF PAY [facility] Number: Effective Repository Date:2018-01-25 01/29/2018 JUNIOR L Primary AC A [place] [id number] [place] Insurance:ANTHEMPolic STROUDDOB: [facility] [place]: [id number] Hospital 60594Uuv: (330) [id number] Repository [phone] () neema Date:6714-30-36AD [address] [place] [address] 73865KP: 01/29/2018 Secondary NOT GIVENUNK Raghu Insurance:SELF PAY [facility] Number: Effective Repository Date:2018-01-27 01/13/2018 JUNIOR L Primary AC A Raghu [id number] [place] Insurance:ANTHEMPolic STROUDDOB: [facility] [place]: [id number] Hospital 63572Ems: (330) [id number] Repository [phone] () neema Date:1445-41-67YW [id number] [place] [address] 48276DV: 01/13/2018 Secondary NOT GIVENUNK Raghu Insurance:SELF PAY [facility] Number: Effective Repository Date:2018-01-13 01/13/2018 JUNIOR L Primary AC A Raghu [id number] [place] Insurance:ANTHEMPolic STROUDDOB: [facility] [place]: [id number] Hospital 41334Rec: (330) [id number] Repository [phone] () neema Date:5188-87-34FC [address] [place] [address] 35540JJ: 01/13/2018 Secondary NOT GIVENUNK [place] Insurance:SELF PAY [facility] Number: Effective Repository Date:2017-12-04 01/03/2018 JUNIOR L Primary AC A [place] [id number] [place] Insurance:ANTHEMPolic STROUDDOB: [place]: [id number] Hospital 19766Syp: (330) [id number] Repository [phone] () neema Date:4622-84-67CQ [address] [place] [address] 34035JD: 01/03/2018 Secondary NOT GIVENUNK Raghu Insurance:SELF PAY [facility] Number: Effective Repository Date:2017-11-25 12/17/2017 JUNIOR L Primary AC A [place] [id number] [place] Insurance:ANTHEMPolic STROUDDOB: [place]: [id number] Hospital 43727Dod: (330) [id number] Repository [phone] () neema Date:0943-84-32FZ [address] [place] [address] 07363XE: 12/17/2017 Secondary NOT GIVENUNK [place] Insurance:SELF PAY [facility] Number: Effective Repository Date:2017-12-17 12/16/2017 JUNIOR L Primary AC A Raghu [id number] [place] Insurance:ANTHEMPolic STROUDDOB: [place]: [id number] Hospital 26275Eyw: (330) [id number] Repository [phone] () neema Date:0018-67-12GT [address] [place] [address] 44327AN: 12/16/2017 Secondary NOT GIVENUNK Raghu Insurance:SELF PAY [facility] Number: Effective Repository Date:2017-12-09 12/04/2017 JUNIOR L Primary AC A Raghu [id number] [place] Insurance:ANTHEMPolic STROUDDOB: [place]: [id number] Hospital 84248Xrj: (330) [id number] Repository [phone] (HP) neema Date:7157-17-00ZH [address] [place] [address] 76843CG: 12/04/2017 Secondary NOT GIVENUNK [place] Insurance:SELF PAY [facility] Number: Effective Repository Date:2017-12-04 11/28/2017 JUNIOR L Primary AC A Raghu [id number] [place] Insurance:ANTHEMPolic STROUDDOB: [facility] [place] Number: [id number] Hospital 54544Urg: (330) [id number] Repository [phone] () neema Date:5309-24-63RJ [address] [place] [address] 42377VU: 11/28/2017 Secondary NOT GIVENUNK Raghu Insurance:SELF PAY [facility] Number: Effective Repository Date:2017-11-28 11/21/2017 JUNIOR L Primary AC A [place] [id number] [place] Insurance:ANTHEMPolic STROUDDOB: [facility] [place] Number: [id number] Hospital 71626Ckx: (330) [id number] Repository [phone] () neema Date:0680-58-24JL [address] [place] [address] 47840YL: 11/21/2017 Secondary NOT GIVENUNK [place] Insurance:SELF PAY [facility] Number: Effective Repository Date:2017-11-21 11/14/2017 JUNIOR L Primary AC A [place] [id number] [place] Insurance:ANTHEMPolic STROUDDOB: [facility] [place] Number: [id number] Hospital 54710Kom: (330) [id number] Repository [phone] (HP) neema Date:9605-63-97HV [address] [place] [address]FT: 11/14/2017 Secondary NOT GIVENUNK Raghu Insurance:SELF PAY [facility] Hospital Number: Effective Repository Date:2017-10-24 11/14/2017 JUNIOR L Primary AC A [place] [id number] [place] Insurance:ANTHEMPolic [facility] Number: [id number] Hospital 44991Xgv: (330) [id number] Repository [phone] (HP) neema Date:9708-47-53MF [address] [place] [address]PF: 11/14/2017 Secondary NOT GIVENUNK Raghu Insurance:SELF PAY [facility] Number: Effective Repository Date:2017-11-14 11/08/2017 JUNIOR L Primary AC A [place] [id number] [place] Insurance:ANTHEMPolic [facility] [place] [facility]: [id number] Hospital 21594Kfg: (330) [id number] Repository [phone] () neema Date:3841-44-07CC [address]MJR [place] [address]YL: 11/08/2017 Secondary NOT GIVENUNK [place] Insurance:SELF PAY [facility] Number: Effective Repository Date:2017-11-08 11/06/2017 JUNIOR L Primary AC A [place] [id number] [place] Insurance:ANTHEMPolic [facility]OUDDOB: [facility] Number: [id number] Hospital 47600Bcr: (330) [id number] Repository [phone] (HP) neema Date:1394-33-70AJ [address]PFN[address], [place] [address]QW: 11/06/2017 Secondary NOT GIVENUNK Raghu Insurance:SELF PAY [facility] Number: Effective Repository Date:2017-10-26 11/04/2017 JUNIOR L Primary AC A [place] [id number] [place] Insurance:ANTHEMPolic STROUDDOB: [facility] [place] Number: [id number] Hospital 27471Ohw: (330) [id number] Repository [phone] (HP) neema Date:8253-33-90FT [address] [place] [address] 98322FX: 11/04/2017 Secondary NOT GIVENUNK Raghu Insurance:SELF PAY [facility] Number: Effective Repository Date:2017-11-04 11/01/2017 JUNIOR L Primary AC A Raguh [id number] [place] Insurance:ANTHEMPolic STROUDDOB: [facility] [place] Number: [id number] Hospital 40130Ekv: (330) [id number] Repository [phone] (HP) neema Date:2358-31-37XO [address] [place] [address] 36616NE: 11/01/2017 Secondary NOT GIVENUNK Raghu Insurance:SELF PAY [facility] Number: Effective Repository Date:2017-11-01 10/29/2017 JUNIOR L Primary AC A Raghu [id number] [place] Insurance:ANTHEMPolic STROUDDOB: [facility] [place]: [id number] Hospital 84902Vsv: (330) [id number] Repository [phone] (HP) neema Date:1845-49-18HA [address] [place] [address] 86077YV: 10/29/2017 Secondary NOT GIVENUNK [place] Insurance:SELF PAY [facility] Number: Effective Repository Date:2017-10-29 10/29/2017 JUNIOR L Primary AC A [place] [id number] [place] Insurance:ANTHEMPolic STROUDDOB: [facility] [place]: [id number] Hospital 47131Trj: (330) [id number] Repository [phone] (HP) neema Date:3188-45-26HR [address] [place] [address] [place] 17417TB: 10/29/2017 Secondary NOT GIVENUNK [place] Insurance:SELF PAY [facility] Number: Effective Repository Date:2017-10-29 10/29/2017 JUNIOR L Primary AC A [place] [id number] [place] Insurance:ANTHEMPolic STROUDDOB: [facility] [place] Number: [id number] Hospital 85732Upr: (330) [id number] Repository [phone] () neema Date:0713-42-46CT [address] [place] [address] 48895DM: 10/29/2017 Secondary NOT GIVENUNK [place] Insurance:SELF PAY [facility] Number: Effective Repository Date:2017-10-29 10/24/2017 JUNIOR L Primary AC A Raghu [id number] [place] Insurance:ANTHEMPolic STROUDDOB: [facility] [place]: [id number] Hospital 20698Une: (330) [id number] Repository [phone] () neema Date:9862-13-02ZA [address] [place] [address] 86093HY: 10/24/2017 Secondary NOT GIVENUNK Raghu Insurance:SELF PAY [facility] Number: Effective Repository Date:2017-10-24 10/24/2017 JUNIOR L Primary AC A Raghu [id number] [place] Insurance:ANTHEMPolic STROUDDOB: [facility] [place]: [id number] Hospital 00279Ayg: (330) [id number] Repository [phone] () neema Date:2709-15-94MQ [address] [place] [address] 29972YC: 10/24/2017 Secondary NOT GIVENUNK Raghu Insurance:SELF PAY [facility] Number: Effective Repository Date:2017-10-24 10/23/2017 JUNIOR L Primary AC A [place] [id number] [place] Insurance:ANTHEMPolic STROUDDOB: [facility] [place]: [id number] Hospital 98605Djt: (330) [id number] Repository [phone] (HP) neema Date:1001-26-82ZB [address] [place] [address] 85071TB: 10/23/2017 Secondary NOT GIVENUNK Raghu Insurance:SELF PAY [facility] Number: Effective Repository Date:2017-10-23 10/15/2017 JUNIOR L Primary AC A Raghu [id number] [place] Insurance:ANTHEMPolic [facility] [place] [facility]: [id number] Hospital 12179Bne: (330) [id number] Repository [phone] (HP) neema Date:2280-31-38NW [address] [place] [address] [place] 85878VJ: 10/15/2017 Secondary NOT GIVENUNK [place] Insurance:SELF PAY [facility] Hospital Number: Effective Repository Date:2017-10-15 10/15/2017 JUNIOR L Primary AC A [place] [id number] [place] Insurance:ANTHEMPolic STROUDDOB: [facility] Number: [id number] Hospital 79830Hqv: (330) [id number] Repository [phone] () neema Date:7575-84-18MY [address] [place] [address] 05885KY: 10/15/2017 Secondary NOT GIVENUNK [place] Insurance:SELF PAY [facility] Hospital Number: Effective Repository Date:2017-10-15 10/15/2017 JUNIOR L Primary Ac A [place] [id number] [place] Insurance:ANTHEMPolic [facility] [place] [facility]: [id number] Hospital 44095Gcf: (330) [id number] Repository [phone] (HP) neema Date:5548-45-25JG [address] [place] [address] [place] 54223VC: 10/15/2017 Secondary NOT GIVENUNK Raghu Insurance:SELF PAY [facility] Number: Effective Repository Date:2017-10-15 10/15/2017 JUNIOR L Primary AC A [place] [id number] [place] Insurance:ANTHEMPolic STROUDDOB: [facility] [place]: [id number] Hospital 22799Ywn: (330) [id number] Repository [phone] () neema Date:3067-37-97HC [address] [place] [address] 28460MQ: 10/15/2017 Secondary NOT GIVENUNK Raghu Insurance:SELF PAY [facility] Number: Effective Repository Date:2017-10-15 10/15/2017 JUNIOR L Primary AC A Raghu [id number] [place] Insurance:ANTHEMPolic STROUDDOB: [facility] [place]: [id number] Hospital 90647Imx: (330) [id number] Repository [phone] () neema Date:8280-88-36RL [address] [place] [address] 20450MR: 10/15/2017 Secondary NOT GIVENUNK [place] Insurance:SELF PAY [facility] Number: Effective Repository Date:2017-09-23 10/15/2017 JUNIOR L Primary AC A [place] [id number] [place] Insurance:ANTHEMPolic STROUDDOB: [facility] [place]: [id number] Hospital 27076Dnl: (330) [id number] Repository [phone] () neema Date:7462-21-83TA [id number] [place] [address] 56731QZ: 10/15/2017 Secondary NOT GIVENUNK Raghu Insurance:SELF PAY [facility] Number: Effective Repository Date:2017-10-15 10/08/2017 JUNIOR L Primary Ac A Raghu [id number] [place] Insurance:ANTHEMPolic StroudDOB: [facility] [place]: [id number] Hospital 53018Qqs: (330) [id number] Repository [phone] () neema Date:5750-55-56VG [address] [place] [address] 50322FU: 10/08/2017 Secondary NOT GIVENUNK Raghu Insurance:SELF PAY [facility] Number: Effective Repository Date:2017-09-25 09/26/2017 JUNIOR L Primary Ac A [place] [id number] [place] Insurance:ANTHEMPolic StroudDOB: [facility] [place]: [id number] Hospital 95679Nip: (330) [id number] Repository [phone] () neema Date:0310-84-61KY [address] [place] [address] [place] 62[address]XS: 09/26/2017 Secondary NOT GIVENUNK Raghu Insurance:SELF PAY [facility] Number: Effective Repository Date:2017-09-26 09/24/2017 JUNIOR L Primary Ac A [place] [id number] [place] Insurance:ANTHEMPolic StroudDOB: [facility] [place]: [id number] Hospital 13864Edo: (330) [id number] Repository [phone] () neema Date:5653-01-97PK [address] [place] [address] [place] 42420LC: 09/24/2017 Secondary NOT GIVENUNK [place] Insurance:SELF PAY [facility] Number: Effective Repository Date:2017-09-10 09/18/2017 JUNIOR L Primary Ac A [place] [id number] [place] Insurance:ANTHEMPolic StroudDOB: [place]: [id number] Hospital 12124Lps: (330) [id number] Repository [phone] () neema Date:2724-61-78LG [address] [place] [address]RQ: 09/18/2017 Secondary NOT GIVENUNK Raghu Insurance:SELF PAY [facility] Number: Effective Repository Date:2017-09-18 09/12/2017 JUNIOR L Primary Ac A [place] [id number] [place] Insurance:ANTHEMPolic StroudDOB: [place]: [id number] Hospital 47206Utt: (330) [id number] Repository [phone] (HP) neema Date:4156-73-73ZZ [address] [place] [address] 53266TT: 09/12/2017 Secondary NOT GIVENUNK [place] Insurance:SELF PAY [facility] Number: Effective Repository Date:2017-06-25 09/10/2017 JUNIOR L Primary Ac A Raghu [id number] [place] Insurance:ANTHEMPolic StroudDOB: [facility] [place]: [id number] Hospital 35359Gac: (330) [id number] Repository [phone] () neema Date:8804-61-23VP [address] [place] [address] 99627TR: 09/10/2017 Secondary NOT GIVENUNK [place] Insurance:SELF PAY [facility] Number: Effective Repository Date:2017-09-10 07/23/2017 JUNIOR L Primary Ac A [place] [id number] [place] Insurance:ANTHEMPolic StroudDOB: [facility] [place]: [id number] Hospital 59425Qve: (330) [id number] Repository [phone] () neema Date:1277-10-66GY [address] [place] [address] 78522WP: 07/23/2017 Secondary NOT GIVENUNK [place] Insurance:SELF PAY [facility] Number: Effective Repository Date:2017-06-13 07/17/2017 JUNIOR L Primary Ac A [place] [id number] [place] Insurance:ANTHEMPolic StroudDOB: [facility] [place]: [id number] Hospital 55280Fny: (330) [id number] Repository [phone] (HP) neema Date:9612-53-24UZ [address]MPPNX, [place] [address]QH: 07/17/2017 Secondary NOT GIVENUNK [place] Insurance:SELF PAY [facility] Hospital Number: Effective Repository Date:2017-07-15 07/05/2017 JUNIOR L Primary Ac A Raghu [id number] [place] Insurance:ANTHEMPolic [facility] [place]: [id number] Hospital 23361Uef: (330) [id number] Repository [phone] (HP) neema Date:1101-41-36KN [address]SCZTJGD [place] [address]OF: 07/05/2017 Secondary NOT GIVENUNK [place] Insurance:SELF PAY [facility] Number: Effective Repository Date:2017-07-05 06/24/2017 JUNIOR L Primary Ac A Raghu [id number] [place] Insurance:ANTHEMPolic StroudDOB: [facility]: [id number] Hospital 43401Bhw: (330) [id number] Repository [phone] (HP) neema Date:3324-31-99QJ [address]UT[address], [place] [address]JM: 06/24/2017 Secondary NOT GIVENUNK Raghu Insurance:SELF PAY [facility] Number: Effective Repository Date:2017-06-13 06/19/2017 JUNIOR L Primary Ac A Raghu [id number] [place] Insurance:ANTHEMPolic [facility]D[facility] [place]: [id number] Hospital 91713Zfj: (330) [id number] Repository [phone] (HP) neema Date:7231-22-47OB [address]VPFCKXN, [place] [address]TS: 06/19/2017 Secondary NOT GIVENUNK Raghu Insurance:SELF PAY [facility] Number: Effective Repository Date:2017-05-26 05/14/2017 JUNIOR Primary Ac A Raghu [id number] [place] Insurance:ANTHEMPolic StroudDOB: [facility] [place]: [id number] Hospital 65955Clw: (330) [id number] Repository [phone] (HP) neema Date:9036-77-79DA [address]QRNWAT, [place] [address]TI: 05/14/2017 Secondary NOT GIVENUNK [place] Insurance:SELF PAY [facility] Number: Effective Repository Date:2017-04-11 05/06/2017 JUNIOR Primary Ac A [place] [id number] [place] Insurance:ANTHEMPolic [facility] [place] [facility]: [id number] Hospital 87639Dxt: (330) [id number] Repository [phone] () neema Date:2151-55-90NA [address]QTPLCFZ, [place] [address]QR: 05/06/2017 Secondary NOT GIVENUNK Raghu Insurance:SELF PAY [facility] Number: Effective Repository Date:2017-04-01 03/20/2017 JUNIOR Primary Ac A Raghu [id number] [place] Insurance:ANTHEMPolic StroudDOB: [facility] [place]: [id number] Hospital 69290Cgj: (330) [id number] Repository [phone] () neema Date:3021-14-36XS [address], [place] [address]BS: 03/20/2017 Secondary NOT GIVENUNK [place] Insurance:SELF PAY [facility] Number: Effective Repository Date:2017-03-13
== END 2018-02-24 23:59 ==
LOC: NS 09:36
PROVIDERS: Family Provider Family Medicine; PCP Family Medicine; Referring Provider Family Medicine; Visit Provider Family Medicine
DX: E66.01 Morbid (severe) obesity due to excess calories (principal); Z68.43 Body mass index [BMI] 50.0-59.9, adult; Z71.3 Dietary counseling and surveillance
CPT/HCPCS: 97803

== ENCOUNTER 2018-03-06 08:32 | Outpatient (RCR) | payer BC, SELFPAY ==
[2018-01-13 10:54] VITALS: BMI 52.9
== END 2018-03-06 12:12 | disposition home or self-care (01) ==
LOC: NS 08:32
PROVIDERS: Family Provider Family Medicine; PCP Family Medicine; Referring Provider Family Medicine; Visit Provider Family Medicine
DX: E66.01 Morbid (severe) obesity due to excess calories (principal); Z68.43 Body mass index [BMI] 50.0-59.9, adult; Z71.3 Dietary counseling and surveillance
CPT/HCPCS: 97803

== ENCOUNTER 2018-05-28 17:52 | Emergency (ER) | payer BC, SELFPAY ==
[2018-01-13 10:54] VITALS: BMI 52.9
[2018-05-28 17:53] VITALS: BP 170/144; PULSE 109; RESP 22; TEMP 37; O2SAT 94; BMI 55.9
--- NOTE | 2018-05-28 18:17 | RAD_ITS ---
STUDY: X-RAY CHEST REASON FOR EXAM: Female, 53 years old. Cough for 3 days TECHNIQUE: Frontal and lateral views of the chest. COMPARISON: 09/18/2017 FINDINGS: The lungs are clear and expanded. There is no demonstrated pleural abnormality. Normal size heart. Normal mediastinum and carri. Normal visualized pulmonary arteries. Normal visualized aortic arch and descending thoracic aorta. Normal visualized thoracic spine. Normal visualized ribs, clavicles, and shoulders. There is no demonstrated abnormality of the visualized soft tissue structures of the upper abdomen. RAD/Chest PA and Lateral IMPRESSION: Normal x-ray examination of the chest. Electronically Signed: Shlomo Duggan MD at 19:02 EDT Tel , Service support ,
[2018-05-28 18:58] VITALS: BP 146/76; PULSE 92; TEMP 36.9; O2SAT 97
--- NOTE | 2018-05-28 19:35 | ED.VISSUMM ---
- ER Visit Summary Date of Service: 05/28/18 Chief Complaint: Cough History of Present Illness: The patient is a 53 F for history of worsening cough. States diagnosed with influenza 2 days ago by her PCP. No comorbidities therefore no medicines were started. Saw urgent care today reported temp of 101, no antipyretics were given. Reports diagnosed from a flu swab. No chest pains. No fevers. No vomiting or diarrhea. Physical Examination: General: Alert and oriented ?3, no acute distress HEENT: Normocephalic, atraumatic. Moist mucosa membranes Neck: supple, nontender. Cardiovascular: Regular rate and rhythm, no murmurs Respiratory: Normal breath sounds, symmetric, no distress Abdomen: Soft, nontender, nondistended Extremities: Nontender, no edema, pulses intact ?4 Neuro: no focal neurological deficits. Test Results: Chest x-ray negative Emergency Department Course and Treatment: Patient nontoxic afebrile here. 4 days and the symptoms discussed peak of the viral influenza process with the patient. Chest x-ray obtained to rule out post influenza pneumonia. Results negative. Discussed continue oral hydration and managing symptoms at home with Tylenol Motrin. Signs and symptoms discussed to return. Otherwise follow with PCP. All questions were answered. Treatment Plan: [] Disposition: Discharge Impression: Influenza-like symptoms This note was generated with [employer] dictation software. It may contain incorrect words, spelling, and punctuation that were not noted in review of the chart prior to signing ED Disposition - Plan for ED Patient: Disposition: Home or Assisted Living Diagnosis: Influenza-like symptoms Instructions: ED Flu Referrals: Alley Roberts MD [STAFF PHYSICIAN] - 3-5 Days if not improving
== END 2018-05-28 20:04 | disposition home or self-care (01) ==
PROVIDERS: Emergency Provider Emergency Medicine; Family Provider Family Medicine; PCP Family Medicine
DX: J11.1 Influenza due to unidentified influenza virus with other respiratory manifestations (principal)
CPT/HCPCS: 71046; 99282

== ENCOUNTER → 2018-06-03 | Outpatient (CLI) | payer BC, SELFPAY ==
[2018-01-13 10:54] VITALS: BMI 52.9
[2018-05-28 17:53] VITALS: BMI 55.9
--- NOTE | 2018-06-03 17:52 | CT_ITS ---
STUDY: CT ABDOMEN AND PELVIS WITH CONTRAST REASON FOR EXAM: Female, 53 years old. Abdominal pain, prior PARI, BSO, ventral hernia repair. RADIATION DOSAGE (If Supplied By Facility): CTDIvol = ( 15.41 ) mGy, DLP = ( 1241.62 ) mGycm TECHNIQUE: Transaxial 3.75 mm images were obtained from the dome of the diaphragm to the symphysis pubis with oral contrast. 100 IV/Oral Isovue 300 was administered. Sagittal and coronal images were reconstructed. There is obesity, the entirety of soft tissue is not imaged. Individualized dose optimization techniques were used for this CT. COMPARISON: CT abdomen and pelvis 10/24/2017. 09/24/2017. FINDINGS: The visualized lung bases are unremarkable. The visualized portions of the heart are within normal limits. Stable and angulation of the right hepatic lobe low attenuated parenchyma.. There are multiple gallstones. Normal spleen. Normal pancreas. Normal bilateral adrenal glands. Normal right kidney. Normal left kidney. Normal visualized stomach. Normal small intestine. Normal colon. The appendix is visualized and appears normal. Normal abdominal aorta. Normal inferior vena cava. Normal retroperitoneum. Normal urinary bladder. There is absence of the uterus consistent with a prior hysterectomy. There is a right supraumbilical hernia just superior to the abdominal wall mesh containing short segment of transverse colon with an opening of 3.8 cm, hernia sac of 4.2 x 7.2 x 7.3 cm with caliber change and mild wall thickening at the entry and exit site. There is no wall thickening of the herniated segment. There is an additional adjacent to slightly right inferior lateral hernia with an opening of 3.2 cm showing approximately 3 x 2.3 x 2.5 cm. Small umbilical hernia. The previously seen postoperative hematoma/seroma in the anterior abdominal wall with significant stranding has resolved. There are degenerative changes of the visualized lumbar spine and bilateral hip joints, stable mild retrolisthesis L2 on L3, L3 on L4, and small hemangiomata L2-L3. CT/Abdomen/Pelvis WITH Contrast IMPRESSION: Supraumbilical ventral hernia, the larger one contains portion of the transverse colon, there is mild wall thickening and lumbar change at the entry and exit site, the short segment of herniated transverse colon however demonstrate no wall prominence or signs of obstruction. This is superior to the site of the previous hernia repair. Surgical consultation recommended. Stable cholelithiasis, elongation of the right hepatic lobe, low attenuation changes within the liver and degenerative changes.. Electronically Signed: Ayaka Cortés MD at 7:08 EDT , Service support ,
== END | disposition home or self-care (01) ==
LOC: CT 17:49
PROVIDERS: Family Provider Family Medicine; PCP Family Medicine; Referring Provider Family Medicine; Visit Provider Family Medicine
DX: R10.9 Unspecified abdominal pain (principal)
CPT/HCPCS: 74177; Q9967

== ENCOUNTER 2018-08-26 12:19 | Day surgery (SDC) | payer BC, SELFPAY ==
[2018-06-19 14:31] VITALS: BMI 55.9
--- NOTE | 2018-08-25 18:47 | PCM.HP.BLA ---
History and Physical Date of Admission: 08/26/18 Sena Wing is a 53 year old female who is a consultation requested by LAZARA Paris, for an opinion regarding dysphagia. My final recommendations will be communicated back to the requesting provider by way of shared Medical record. The patient has not been seen previously. ? The patient was seen by Tosha on 07/30/18, leading to this consultation. That note has been reviewed. The patient is in the process of medical evaluation prior to anticipated surgical/medical treatment of obesity. ? The patient has sleep apnea and has a BMI >50, so she will require MAC. ? Subjective The patient presents today reporting that she is meeting with the surgeon next week regarding bariatric surgery. She is in need of an EGD as part of the process. ? She reports having had issues with dyspepsia in the past. Not so much recently. She had been on a medication for it, but not recently. ? She tells me that she sometimes has difficulty swallowing white meat chicken, so she prefers the dark meat. ? She reports that she can usually swallow a handful of pills at once. She recalls one episode of dysphagia with swallowing a number of vitamins at once. She ended up bringing up the bolus. We discussed priming with a few swallow of water first. She notes that she probably hadn't done that. ? The patient denies change in bowel habits or rectal bleeding. Having a bowel movement regularly. She has an incisional hernia that sometimes gives her discomfort. No other complaints. ? ? Review of Systems Constitutional: Negative for appetite change and unexpected weight change. HENT: Positive for trouble swallowing (see above). Negative for dental problem and mouth sores. Eyes: Negative for visual disturbance. Respiratory: Negative for cough, shortness of breath and wheezing. Cardiovascular: Negative for chest pain and palpitations. Gastrointestinal: Negative for abdominal pain (some pain related to a hernia), anal bleeding, blood in stool, constipation, diarrhea, nausea and vomiting. Endocrine: Negative for polydipsia and polyuria. Genitourinary: Positive for urgency (now on prescription - with relief). Negative for difficulty urinating. Musculoskeletal: Positive for arthralgias and back pain. Allergic/Immunologic: Negative for immunocompromised state. Neurological: Negative for tremors, seizures and headaches. Hematological: Negative for adenopathy. Does not bruise/bleed easily. Psychiatric/Behavioral: The patient is not nervous/anxious. ? ? PAST?MEDICAL?HISTORY ? Carpal tunnel syndrome ? ? Dysmenorrhea ? ? Dysmetabolic syndrome X ? ? Excessive or frequent menstruation ? ? Heavy periods ? Genital herpes, unspecified 2007 ? Monilial vaginitis ? ? Morbid obesity with BMI of 50.0-59.9, adult (HCC) ? ? Obesity, unspecified ? ? BRUCE on CPAP ? ? Wears every night ? PSVT (paroxysmal supraventricular tachycardia) ([facility]) ? ? ocassional episodes ? Urinary, incontinence, stress female ? ? PAST?SURGICAL?HISTORY ? DELIVERY ONLY ? 1984 ? , low cervical ? D&C, DIAG AND/OR THERAPEUTIC ? 1993 ? Dilation & curettage ? D&C, DIAG AND/OR THERAPEUTIC ? 03-20-05 ? Dilation & curettage ? HYSTEROSCOPY, DIAGNOSTIC (SEPARATE ? 03-20-05 ? Hysteroscopy ? LIGATE FALLOPIAN TUBE ? 1997 ? Tubal ligation ? PAST SURGICAL HISTORY OF ? 2001 ? MASS REMOVED UNDER R ARM ? PAST SURGICAL HISTORY OF ? 2017 ? Colon resection due to accidental perforation ? PAST SURGICAL HISTORY OF ? 2018 ? Open hernia repair ? PAST SURGICAL HISTORY OF ? ? ? third abdominal hernia repair ? PAST SURGICAL HISTORY OF ? ? ? left knee surgery ? REPAIR INCISIONAL HERNIA,REDUCIBLE ? 1997 ? Hernia repair, incisional ? REVISE MEDIAN N/CARPAL TUNNEL SURG ? 2001 ? Carpal tunnel decomp FAMILY?HISTORY ? Diabetes Maternal Grandmother ? ? Cancer Maternal Grandfather ? ? RECTAL ? Cancer Father ? ? BLADDER ? Diabetes Father ? ? Coronary Artery Disease Father ? ? 3 bypasses in early s Major [place] ? Kidney Disease Father ? ? Hypertension Mother ? ? Diabetes Mother ? ? Diabetes Daughter ? ? type I ?? CURRENT?MEDICATIONS ? Magnesium 200 mg tab 250 mg. ? ? ? multivit with minerals/lutein (MULTIVITAMIN 50 PLUS ORAL) multivitamin Multivitamin [Daily Multiple Vitamin] 1 EA PO DAILY February 06, 2017 Active 02-06-2017 [facility] ([id number]) ? ? ? aspirin, enteric coated (ASPIRIN, ENTERIC COATED) 325 mg EC tablet 325 mg. ? ? ? omega 3-yrx-sai-fish oil (FISH OIL) 300-1,000 mg cpDR Fish Oils FISH OIL CAPS Two tablets by mouth daily OMEGA-3 FATTY ACIDS CAPS [phone] Yasir Jaramillo MD 05-27-2014 [facility] ([id number]) ? ? ? tolterodine ER (DETROL LA) 4 mg 24 hr capsule ? MULTIVITAMIN TAB Take one(1) tablet daily. ? 0 ? ? SOCIAL HISTORY: Patient is . She has never smoked. She denies recreational drugs. Sena reports her alcohol use as occasionally. ? Objective Blood pressure 144/85, pulse 81, height 161.3 cm (5' 3.5), weight (!) 142.9 kg (315 lb), last menstrual period 02/14/2016. Physical Exam Constitutional: She is oriented to person, place, and time. She appears well-developed and well-nourished. No distress. HENT: Head: Normocephalic and atraumatic. Mouth/Throat: Oropharynx is clear and moist. No oropharyngeal exudate. Eyes: Conjunctivae are normal. No scleral icterus. Neck: Neck supple. No tracheal deviation present. Cardiovascular: Normal rate, regular rhythm, normal heart sounds and intact distal pulses. Pulmonary/Chest: Effort normal and breath sounds normal. Abdominal: Soft. Bowel sounds are normal. She exhibits no distension. There is no guarding. Lymphadenopathy: She has no cervical adenopathy. Neurological: She is alert and oriented to person, place, and time. Skin: Skin is warm and dry. She is not diaphoretic. Psychiatric: She has a normal mood and affect. Her behavior is normal. Judgment and thought content normal. ? ? Assessment and Plan Dyspepsia 2)intermittent dysphagia ?? The patient is scheduled for upper endoscopy. She will require MAC. Preparation for the procedure and the procedure itself have been explained in detail. The risks, benefits, anticipated outcomes and possible complications were mentioned. I also explained the procedure in understandable terms and the patient was given printed material concerning the planned procedure. The patient had the opportunity to ask questions concerning the planned procedure. The patient freely consents to the planned procedure. The patient is asked to call with any questions or concerns, or if there is a change in health status between now and the scheduled procedure. ?? Ashley Moraes RN CLOTH EXAMINER.WHEEL BORER
[2018-08-26] VITALS (8 sets, daily range): BP systolic 87–125; BP diastolic 55–73; PULSE 77–90; RESP 16; TEMP 36.8–36.9; O2SAT 93–100; BMI 55.7
--- NOTE | 2018-08-26 | EGD_PTH ---
PATIENT: JUNIOR CONTE LOC: EN U#:[id number] AGE/SX: 53/F ROOM: RE08/26/[address]: Dr. Liz Clark MD : 1965 BED: DIS: 08/26/2018 SPEC #: [id number] RECD: 08/26/18 14:45 STATUS: BRYAN ROSE MARIE #: [id number] CLAY: 08/26/18 00:[address]: Liz Clark DEPT: SURGICAL PATHOLOGY RECD BY: Alejandro Phan ENTERED: 08/27/18 13:54 SP TYPE: EGD BIOPSY LANDEN DR: Dr. Adan Walter MD Tissues: A - Duodenum, NOS B - Gastric mucous membrane C - Gastric mucous membrane Procedures: Surgery Specimen Level IV HEADER O[place] [place] DIAGNOSIS: Dyspepsia; intermittent dysphagia TISSUE SUBMITTED: A - Second portion duodenum biopsy, B - Antral biopsy for H. pylori and path, C - GE junction biopsy MICROSCOPIC DIAGNOSIS A. Second portion duodenum, biopsy: Fragments of small intestinal mucosa, no pathologic diagnosis. B. Antral biopsy: Fragments of superficial gastric mucosa with minimal chronic inflammation. See comment. C. GE junction, biopsy: Fragments of squamous epithelium with mild chronic inflammation. See comment. SJ:rg 08/29/18 COMMENT B. The results of immunohistochemistry for Helicobacter pylori will be reported separately ([id number]). C. Gastric mucosa is not seen in the specimen. MICROSCOPIC DESCRIPTION Slides are reviewed. GROSS DESCRIPTION A - Received in fixative is one container labeled with the patient's name and designated second portion duodenum. The specimen consists of multiple irregular fragments of light schmitt soft tissue that in aggregate measure 0.5 x 0.3 x 0.1 cm. The specimen is totally submitted in one cassette. B - Received in fixative is one container labeled with the patient's name and designated antral biopsy. The specimen consists of one irregular fragment of light schmitt soft tissue that measures 0.4 x 0.3 x 0.1 cm. The specimen is totally submitted in one cassette. C - Received in fixative is one container labeled with the patient's name and designated GE junction biopsy. The specimen consists of multiple irregular fragments of light schmitt soft tissue that in aggregate measure 1 x 0.2 x 0.1 cm. The specimen is totally submitted in one cassette. / SJ:rg 08/27/18 TC:3 CPT: 75877 x3
--- NOTE | 2018-08-26 | IMM_PTH ---
PATIENT: JUNIOR CONTE LOC: EN U#:[id number] AGE/SX: 53/F ROOM: RE08/26/[address]: Dr. Liz Clark MD : 1965 BED: DIS: 08/26/2018 SPEC #: [id number] RECD: 08/29/18 07:16 STATUS: BRYAN REJoseph #: [id number] CLAY: 08/26/18 00:[address]: Liz Clark DEPT: IMMUNOHISTOCHEMISTRY RECD BY: Wanda Arita ENTERED: 08/29/18 07:17 SP TYPE: IMMUNO OTHR DR: Dr. Adan Walter MD Tissues: B - Stomach, NOS Procedures: H Pylori (initial) PHYSICIAN & INSTITUTION [place] [id number] SPECIMEN INFORMATION: Tissue Source: B - Antral biopsy Clinical Info: Dyspepsia; intermittent dysphagia Specimen Number: [id number] CPT code: 84706 METHODOLOGY: Deparaffinized sections of prefer/formalin-fixed tissue or PAP/DQ stained slides are incubated with monoclonal/polyclonal antibodies/oligonucleotide probes. Localization is made via biotin free immunoperoxidase method. Appropriate controls are performed and reacted as expected. Results on target cell population are indicated in the following table: RESULTS: ANTIBODY / CLONE RESULT Block B H Pylori (polyclonal) negative These tests were developed and their performance characteristics determined by [facility]. They may not have been cleared or approved by the U.S. Food and Drug Administration. The FDA has determined that such clearance or approval is not necessary. INTERPRETATION: B. Antral biopsy: Negative for Helicobacter pylori organisms. SJ:rere 08/29/18
--- NOTE | 2018-08-27 10:45 | OP.ENDO_ITS ---
08/27/2018 Mookie Walter [address] [place] [address] Re : Upper GI endoscopy procedure for Sena Wing Dear Dr. Walter This procedure was performed on Sunday, August 26, 2018. My impressions and recommendations are as follows: Impressions : - Normal first portion of the duodenum and second portion of the duodenum. Biopsied for celiac sprue - Small hiatal hernia. Biopsied GE junction. Also antrum biopsied for histology and H pylori - Biopsies were taken with a cold forceps for histology of esophagus/GE junction. Recommendations : - Discharge patient to home (ambulatory). - Resume previous diet. - Continue present medications. - Await pathology results. - Return to nurse practitioner -Ashley Moraes CNP, in 1-2 weeks for discussion of results.. My findings are described in the full procedure note, which is enclosed. If I can be of further assistance, please feel free to contact me at Doctor phone number(s): , Work: . Sincerely, MD Liz Kennedy MD 08/26/2018 1:33:35 PM This report has been signed electronically.
== END 2018-08-26 14:30 | disposition home or self-care (01) ==
LOC: EN 12:19 → AC 12:34
PROVIDERS: Family Provider Family Medicine; PCP Family Medicine; Referring Provider Family Medicine; Visit Provider Surgery
PROC: 0DJ08ZZ Inspection of Upper Intestinal Tract, Via Natural or Artificial Opening Endoscopic (ICD-10-PCS; CPT 43235; principal; 2018-08-26 13:25)
DX: K44.9 Diaphragmatic hernia without obstruction or gangrene (principal); K30 Functional dyspepsia; K21.9 Gastro-esophageal reflux disease without esophagitis; E88.81 Metabolic syndrome and other insulin resistance; E66.01 Morbid (severe) obesity due to excess calories; G47.33 Obstructive sleep apnea (adult) (pediatric); I47.1 Supraventricular tachycardia; Z78.0 Asymptomatic menopausal state; Z86.19 Personal history of other infectious and parasitic diseases; Z79.82 Long term (current) use of aspirin; Z79.899 Other long term (current) drug therapy
CPT/HCPCS: 43239; 88305; 88342; J7120; J2405

== ENCOUNTER → 2018-12-04 17:06 | Outpatient (CLI) | payer BC, SELFPAY ==
[2018-08-26 12:42] VITALS: BMI 55.7
[2018-12-04 17:40] LABS: Hematocrit 33.7 % (37-47); Hemoglobin 10.9 g/dL (12.0-15.0); Mean Corp Hgb Conc 32.3 g/dL (32-36); Mean Corpuscular Hgb 30.5 pg (27.0-32.0); Mean Corpuscular Volume 94.4 fL (81-99); Platelet Count 402 K/mm3 (150-450); RBC Distribution Width CV 13.9 % (11.6-14.6); RBC Distribution Width SD 47.4 fl (35.1-43.9); Red Blood Count 3.57 M/mm3 (4.2-5.4); White Blood Count 6.1 K/mm3 (4.4-11.0)
[2018-12-04 18:10] LABS: Anion Gap 9 (5-15); BUN 12 mg/dL (7-18); BUN/Creat Ratio 16.3 RATIO (10-20); Calcium,Total 8.8 mg/dL (8.5-10.1); Chloride 108 mmol/L (98-107); Creatinine, Serum 0.73 mg/dL (0.55-1.02); EST Glomerular Filtration Rate 88 mL/min (>60); Est Glom Filt Rate - Afr Amer 107 mL/min (>60); Glucose 89 mg/dL (74-106); Magnesium 1.9 mg/dL (1.6-2.6); Potassium 4.1 mmol/L (3.5-5.1); Sodium Level 141 mmol/L (136-145)
== END ==
PROVIDERS: Family Provider Family Medicine; PCP Family Medicine; Referring Provider Family Medicine; Visit Provider Family Medicine
DX: R42 Dizziness and giddiness (principal); Z98.84 Bariatric surgery status
CPT/HCPCS: 36415; 80048; 83735; 85027

== ENCOUNTER 2020-06-07 11:02 | Emergency (ER) | payer BC, SELFPAY ==
[2018-08-26 12:42] VITALS: BMI 55.7
[2020-06-07 11:02] VITALS: BP 120/86; PULSE 83; RESP 16; TEMP 36.9; O2SAT 97; BMI 41.1
--- NOTE | 2020-06-07 11:22 | EKG12_ITS ---
Test Reason : BACK PAIN Blood Pressure : / mmHG Vent. Rate : 061 BPM Atrial Rate : 061 BPM P-R Int : 164 ms QRS Dur : 076 ms QT Int : 412 ms P-R-T Axes : 044 -06 030 degrees QTc Int : 414 ms Normal sinus rhythm Normal ECG Confirmed by MASHA CARIAS, LORENA ([id number]), video news editor ROMULO MENESES ([id number]) on 06/08/2020 1:06:10 PM Referred By: LAKIA Confirmed By:LORENA FLANAGAN MD
--- NOTE | 2020-06-07 11:24 | ED.VIS.GEN ---
History of Present Illness Chief Complaint: Back Informant: Patient Narrative: Patient presents with intermittent back pain, worse today. Patient states she had problems with back pain several months ago that seemed to resolve. She had some back pain again yesterday that got better after her wrapped her back. She felt okay this morning but then had rather sudden onset of severe pain in her upper back that wraps around to the ribs bilaterally. She has not taken anything for pain today. She denies shortness of breath. - Past Medical History (1) GERD (gastroesophageal reflux disease) Status: Chronic Past Medical History - Allergies and Home Meds Allergies/Adverse Reactions: Allergies piperacillin [From Zosyn] Allergy (Verified 06/07/20 11:05) Unknown tazobactam [From Zosyn] Allergy (Verified 06/07/20 11:05) Unknown Tetanus Vaccines and Toxoid [Tetanus Vaccines & Toxoid] Allergy (Verified 06/07/20 11:05) Rash codeine Adverse Reaction (Verified 06/07/20 11:05) Other HEART RACING Primary Care Physician: Mookie Walter MD [Primary Care Provider] - Surgical History: - - Gastric bypass Lives: Spouse/ Significant Other Smoking Status: Never smoker Review of Systems General: Denies: Chills, Fever Eyes: Denies: Visual changes - bilaterally ENT: Denies: Bilateral ear pain Cardiovascular: Reports: Chest pain Respiratory: Denies: Dyspnea, Cough Gastrointestinal: Denies: Abdominal pain, Vomiting, Diarrhea Musculoskeletal: Reports: Back pain Skin: Denies: Rash Neurological: Denies: Headache Hematologic: Denies: Easy bruising Allergy: Denies: Uticaria Physical Exam Vital Signs/Narrative: Vital Signs Temp Pulse Resp BP Pulse Ox 06/07/20 11:02 98.5 F 83 16 120/86 H 97 Inital Vital Signs reviewed: Yes General: Well nourished, Well developed Head: Normocephalic Neck: Supple Cardiovascular: Regular rate, Regular rhythm Respiratory: No distress, CTA bilaterally, Chest nontender Abdomen: Soft, Nontender Back: Nontender - No reproducible back pain Skin: Normal color Neurological: Alert, Oriented x3 Psychological: Normal affect Diagnostic/Tx/Re-eval Chest X-Ray - ED: 1 View, Read by ED Physician, Normal, Heart, Lungs, Mediastinum Impressions Chest X-Ray 06/07/20 11:50 IMPRESSION: No acute abnormality is seen. Electronically Signed: Nakul Collins MD at 13:03 EDT , Service support , Chest CTA 06/07/20 13:02 IMPRESSION: Normal CTA chest examination, without a demonstrated pulmonary embolism or arterial dissection. Electronically Signed: Nakul Collins MD at 13:59 EDT , Service support , 06/07/20 11:50 Chest 1 View (Portable) [RAD] Stat 06/07/20 13:02 CTA Chest W/WO Contrast [CT] Stat Laboratory Results 06/07/20 06/07/20 06/07/20 12:03 12:03 12:03 WBC 5.4 RBC 4.02 L Hgb 12.4 Hct 38.2 MCV 95.0 MCH 30.8 MCHC 32.5 RDW Std Deviation 44.3 H RDW Coeff of Heather 12.7 Plt Count 321 MPV 10.5 Immature Gran % (Auto) 0.200 Neut % (Auto) 46.4 L Lymph % (Auto) 42.2 H Treasure % (Auto) 7.5 Eos % (Auto) 2.8 Baso % (Auto) 0.9 Absolute Neuts (auto) 2.5 Absolute Lymphs (auto) 2.26 Nucleated RBC % 0 D-Dimer Quant (PE/DVT) 1.09 H* Sodium 139 Potassium 4.9 Chloride 107 Carbon Dioxide 27.0 Anion Gap 5 BUN 12 Creatinine 0.69 Estim Creat Clear Calc 77.10 Est GFR (MDRD) Af Amer 114 Est GFR (MDRD) Non-Af 94 BUN/Creatinine Ratio 17.3 Glucose 81 Calcium 9.1 Troponin I < 0.015 - EKG Initial EKG Interpretation: Sinus Rhythm - Sinus at 61 with no acute ischemia. - Medical Decision Making Patient was initially ordered morphine and Zofran. She declined the morphine and requested only Tylenol. EKG is unremarkable. Portable chest x-ray normal. Blood work is negative other than an elevated D-dimer. She is sent for CTA and this again is unremarkable. On repeat evaluation she was complaining of increased pain and actually agreed to the morphine. After giving morphine patient states her pain is significantly improved. At this time patient be treated with [place] as well as Flexeril. My suspicion is this is musculoskeletal back pain with nerve irritation. ED Disposition - Plan for ED Patient: Disposition: Home or Assisted Living Diagnosis: Back pain Instructions: ED Back Pain (Acute or Chronic) Prescriptions: cycloBENZAPRine HCl [Flexeril] 10 mg PO TID PRN #20 tab PRN Reason: Muscle Spasm Transmission Status: Pending to [facility] Hydrocodone Bitart/Apap 5-325 [[place] 5MG-325MG] 1 tablet PO Q6H PRN PRN 3 Days #10 tablet PRN Reason: Pain Transmission Status: Sent to [facility] Referrals: Mookie Walter MD [Primary Care Provider] - 1 Week if not improving
[2020-06-07 11:28] VITALS: O2SAT 96
--- NOTE | 2020-06-07 11:50 | RAD_ITS ---
STUDY: X-RAY CHEST REASON FOR EXAM: Female, 55 years old. Chest pain TECHNIQUE: Single AP portable view of the chest. COMPARISON: Comparison is made with prior study dated 05/28/2018. FINDINGS: EKG electrodes are seen. The lungs are clear and expanded. There is no demonstrated pleural abnormality. Normal size heart. Normal mediastinum and carri. Normal visualized pulmonary arteries. There is atherosclerotic calcification of the aortic arch with tortuosity. There are diffuse degenerative changes of the visualized thoracic spine. Normal visualized ribs, clavicles, and shoulders. There is no demonstrated abnormality of the visualized soft tissue structures of the upper abdomen. RAD/Chest 1 View (Portable) IMPRESSION: No acute abnormality is seen. Electronically Signed: Nakul Collins MD at 13:03 EDT , Service support ,
[2020-06-07 12:18] LABS: Absolute Lymphocyte Count 2.26 X10^3/uL (0.83-4.51); Absolute Neutrophil Count 2.5 X10^3/uL (2.0-7.7); Basophil# 0.05 X10^3/uL; Basophil% 0.9 % (0-1); Eosinophil# 0.15 X10^3/uL; Eosinophils% 2.8 % (0-5); Hematocrit 38.2 % (37-47); Hemoglobin 12.4 g/dL (12.0-15.0); Lymphocyte # 2.26 X10^3/ul (4.0); Lymphocyte % 42.2 % (19-41); Mean Corp Hgb Conc 32.5 g/dL (32-36); Mean Corpuscular Hgb 30.8 pg (27.0-32.0); Mean Platelet Vol. 10.5 fl (6.2-12.0); Monocyte% 7.5 % (0-10); NRBC Flagged by Analyzer 0 % (0-5); Neutrophil # 2.49 X10^3/uL (2.7-7.7); Neutrophil % 46.4 % (47-70); Platelet Count 321 K/mm3 (150-450); RBC Distribution Width CV 12.7 % (11.6-14.6); RBC Distribution Width SD 44.3 fl (35.1-43.9); Red Blood Count 4.02 M/mm3 (4.2-5.4); White Blood Count 5.4 K/mm3 (4.4-11.0)
[2020-06-07 12:37] LABS: Anion Gap 5 (5-15); BUN 12 mg/dL (7-18); BUN/Creat Ratio 17.3 RATIO (10-20); Calcium,Total 9.1 mg/dL (8.5-10.1); Chloride 107 mmol/L (98-107); Creatinine, Serum 0.69 mg/dL (0.55-1.02); EST Glomerular Filtration Rate 94 mL/min (>60); Est Glom Filt Rate - Afr Amer 114 mL/min (>60); Glucose 81 mg/dL (74-106); Potassium 4.9 mmol/L (3.5-5.1); Sodium Level 139 mmol/L (136-145)
[2020-06-07 12:43] LABS: D-Dimer Quantitative (DVT/PE) 1.09 FEU/ug/m (0.27-0.49)
--- NOTE | 2020-06-07 12:45 | ED.RN ---
d-dimer 1.09. dr dai aware
[2020-06-07] MEDS: Acetaminophen 500 MG Tablet 1000 MG PO (12:56)
--- NOTE | 2020-06-07 13:02 | CT_ITS ---
STUDY: CTA CHEST REASON FOR EXAM: Female, 55 years old. Back pain, elevated d-dimer RADIATION DOSAGE (If Supplied By Facility): CTDIvol = ( 11.01 ) mGy, DLP = ( 449.95 ) mGycm TECHNIQUE: The examination was performed with the intravenous administration of IV 100mL Isovue-370. Post-processing of the angiographic images was performed, with multiplanar reformation and 3D reconstruction. Individualized dose optimization techniques were used for this CT. COMPARISON: None. FINDINGS: Normal enhancement of the main pulmonary artery and right and left pulmonary arteries. Normal enhancement of the bilateral peripheral pulmonary arteries. There is no demonstrated pulmonary embolism. There is atherosclerotic calcification of the aortic arch with tortuosity. There is no demonstrated aortic dissection. Normal heart and pericardium. Normal mediastinum. Normal hilar regions. Normal visualized trachea and bronchi. The lungs are well expanded. Normal pulmonary parenchyma. Normal pleura. Normal chest wall structures. There are degenerative changes of thoracic spine. There is evidence of prior gastric bypass surgery. CT/CTA Chest W/WO Contrast IMPRESSION: Normal CTA chest examination, without a demonstrated pulmonary embolism or arterial dissection. Electronically Signed: Nakul Collins MD at 13:59 EDT , Service support ,
[2020-06-07] MEDS: Morphine 4 MG/ML Syringe IV (14:03)
[2020-06-07] MEDS: Ondansetron 4 MG/2 ML Vial IV (14:03)
[2020-06-07 14:06] VITALS: BP 138/83; PULSE 64; RESP 14; O2SAT 100
[2020-06-07 15:16] VITALS: PULSE 72
== END 2020-06-07 15:17 | disposition home or self-care (01) ==
PROVIDERS: Emergency Provider Emergency Medicine; PCP Family Medicine
DX: M54.9 Dorsalgia, unspecified (principal); R79.89 Other specified abnormal findings of blood chemistry; K21.9 Gastro-esophageal reflux disease without esophagitis; Z98.84 Bariatric surgery status
CPT/HCPCS: 71045; 71275; 80048; 84484; 85025; 85379; 93005; 96365; 96374; 96375; 99285; Q9967; A4216; J2405

== ENCOUNTER 2021-03-06 17:59 | Outpatient (CLI) | payer BC, SELFPAY | END 2021-03-06 23:59 | disposition short-term general hospital (02) | PROVIDERS: PCP Family Medicine; Referring Provider Registered Nurse; Visit Provider Registered Nurse | DX: J20.8 Acute bronchitis due to other specified organisms (principal) | CPT/HCPCS: 87635; U0003; U0005 ==

== ENCOUNTER 2021-03-09 15:52 | Outpatient (CLI) | payer BC, SELFPAY ==
--- NOTE | 2021-03-09 15:57 | RAD_ITS ---
STUDY: X-RAY CHEST REASON FOR EXAM: Female, 56 year old. Bronchitis. TECHNIQUE: PA and lateral views of the chest. COMPARISON: 06/07/2020 FINDINGS: The lungs are clear and expanded . There is minimal peribronchial cuffing in the hilar regions.. There is no demonstrated pleural abnormality. Normal size heart. Normal mediastinum and carri. Normal visualized pulmonary arteries. Normal visualized aortic arch and descending thoracic aorta. Normal visualized thoracic spine. Normal visualized ribs, clavicles, and shoulders. There is no demonstrated abnormality of the visualized soft tissue structures of the upper abdomen. RAD/Chest PA and Lateral IMPRESSION: Question mild bronchitis. Electronically Signed: Anand Dupree DO at 22:46 EST Tel [phone], Service support ,
== END 2021-03-09 23:59 | disposition short-term general hospital (02) ==
LOC: MTRAD 15:55
PROVIDERS: PCP Family Medicine; Referring Provider Family Medicine; Visit Provider Family Medicine
DX: J40 Bronchitis, not specified as acute or chronic (principal)
CPT/HCPCS: 71046

== ENCOUNTER 2021-04-10 18:15 | Observation (INO) | payer BC, SELFPAY ==
[2021-04-07 09:56] LABS: Hematocrit 38.3 % (37-47); Hemoglobin 12.8 g/dL (12.0-15.0); Mean Corp Hgb Conc 33.4 g/dL (32-36); Mean Corpuscular Hgb 31.9 pg (27.0-32.0); Mean Corpuscular Volume 95.5 fL (81-99); Mean Platelet Vol. 9.8 fl (6.2-12.0); Platelet Count 291 K/mm3 (150-450); RBC Distribution Width CV 12.7 % (11.6-14.6); Red Blood Count 4.01 M/mm3 (4.2-5.4); White Blood Count 5.3 K/mm3 (4.4-11.0)
[2021-04-07 10:07] LABS: Prothrombin Time (Protime)PT. 12.7 SECONDS (11.7-14.9)
[2021-04-07 10:08] LABS: Partial Thromboplast Time 31.4 Seconds (24.1-36.2)
[2021-04-07 10:23] LABS: Vitamin B12 632 pg/mL (211-911); Vitamin D,25 Hydroxy 36.5 ng/mL
[2021-04-07 11:08] LABS: AST(SGOT) 32 U/L (15-37); Alanine Aminotransfer ALT/SGPT 61 U/L (13-56); Albumin, Serum 3.7 g/dL (3.2-5.0); Alkaline Phosphatase 102 U/L (45-117); Anion Gap 4 (5-15); BUN 16 mg/dL (7-18); BUN/Creat Ratio 20.5 RATIO (10-20); Calcium,Total 8.9 mg/dL (8.5-10.1); Chloride 107 mmol/L (98-107); Creatinine, Serum 0.78 mg/dL (0.55-1.02); EST Glomerular Filtration Rate 81 mL/min (>60); Est Glom Filt Rate - Afr Amer 98 mL/min (>60); Ferritin 50 ng/mL (8-252); Globulin 3.7 g/dL (2.2-4.2); Glucose 73 mg/dL (74-106); Prealbumin 25.6 mg/dL (20.0-40.0); Protein, Total 7.4 g/dL (6.4-8.2); Sodium Level 140 mmol/L (136-145); Uric Acid 4.6 mg/dL (2.6-6.0)
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
[2021-04-10] VITALS (16 sets, daily range): BP systolic 104–131; BP diastolic 63–88; PULSE 53–98; RESP 16–18; TEMP 36.3–37.2; O2SAT 93–99; BMI 41.8
--- NOTE | 2021-04-10 10:30 | TISS_PTH ---
PATIENT: JUNIOR CONTE LOC: MS3 U#:[id number] AGE/SX: 56/F ROOM: NE320 RE04/10/[address]: Dr. Yamil Cao MD : 1965 BED: 1 DIS: 04/11/2021 SPEC #: [id number] RECD: 04/10/21 15:13 STATUS: BRYAN TROTTER #: [id number] CLAY: 04/10/21 10:[address]: Yamil Cao DEPT: SURGICAL PATHOLOGY RECD BY: Laurie Benton ENTERED: 04/11/21 10:00 SP TYPE: Tissue Bx LANDEN DR: Dr. Adan Walter MD Tissues: TISSUE SURGICALLY REMOVED Procedures: Surgery Specimen Level III HEADER OPERATION: Dermolipectomy arm PRE-OP DIAGNOSIS: Abdominal panniculus; excessive skin and subcutaneous tissue lower anterior abdominal wall, bilateral arms and bilateral medial thighs TISSUE SUBMITTED: Right inferior arm skin and subcutaneous tissue MICROSCOPIC DIAGNOSIS Right inferior arm skin and subcutaneous tissue, dermolipectomy: Pieces of skin and underlying adipose tissue, clinically excessive skin and subcutaneous tissue status post gastric bypass and excessive weight loss. DONA:rere 04/12/2021 MICROSCOPIC DESCRIPTION Slides are reviewed. GROSS DESCRIPTION Received in fixative is one container labeled with the patient's name and designated right inferior arm excessive skin and subcutaneous tissue. The specimen consists of multiple pieces of skin and underlying tissue that in aggregate measure 26 x 20 x 6 cm. No skin lesion is identified. Sections do not reveal any mass lesion. Clinical Resource Manager sections are submitted in four cassettes. / DONA:rere 04/11/2021 TC:5 CPT: 35484
[2021-04-10] MEDS: Lactated Ringers 1,000 ML 15 ML IV (10:33)
[2021-04-10] MEDS: Lidocaine 1%/Epi 1:200 (30ml) 30 ML AMPUL (14:00)
[2021-04-10] MEDS: Lactated Ringers 1,000 ML 60 ML IV ×2 (15:00→21:50)
--- NOTE | 2021-04-10 15:20 | PCM.OPRPT ---
Problems Associated Problem List Diagnoses (1) Abdominal panniculus: (2) Excessive and redundant skin and subcutaneous tissue: (3) Skin laxity: (4) Intertrigo: (5) Excessive weight loss: (6) History of gastric bypass: Report of Operation Date of Procedure: 04/10/21 Pre-Operative Diagnosis: 1. ABDOMINAL PANNICULUS. 2. EXCESSIVE SKIN AND SUBCUTANEOUS TISSUE LOWER ANTERIOR ABDOMINAL WALL, BILATERAL ARMS, AND BILATERAL MEDIAL THIGHS. 3. SKIN LAXITY. 4. ABDOMINAL WALL SKIN CREASE INTERTRIGO. 5. BILATERAL AXILLARY SKIN CREASE INTERTRIGO. 6. BILATERAL MEDIAL THIGH CREASE INTERTRIGO. 7. EXCESSIVE WEIGHT LOSS. 8. HISTORY OF GASTRIC BYPASS. Post-Operative Diagnosis: Same. Surgery/Procedure Performed:: Dermolipectomy right arm. Description of Surgical Findings:: Patient is a 56 year old female who presents for evaluation for body contouring of her bilateral arms and thighs and her abdomen after she had gastric bypass surgery. SHE HAS EXCESSIVE AND REDUNDANT SKIN AND SUBCUTANEOUS TISSUE INVOLVING HER BILATERAL ARMS, BILATERAL MEDIAL THIGHS, AND HER LOWER ABDOMINAL WALL. THE EXCESS SKIN AND SUBCUTANEOUS TISSUE HAS LED TO AREAS OF INTERTRIGO IN HER BILATERAL AXILLARY AREAS, BILATERAL MEDIAL THIGHS, AND HER LOWER ANTERIOR ABDOMINAL WALL. ALSO BECAUSE OF THE LARGE SIZE OF THE EXCESSIVE TISSUE INVOLVING HER INFERIOR ARMS, SHE HAS INTERMITTENTLY SUSTAINED MANUEL TO THESE AREAS BECAUSE OF CLOSE PROXIMITY OF THIS EXCESS TISSUE TO THE HOT GRILL AND HOT STOVE. She had her surgery in 2019 at [facility] AND HER WEIGHT WENT FROM 317 LBS DOWN TO 222 LBS. She comes in today for evaluation and treatment. Patient was informed of the risks and complications of the procedure including alternatives to surgery. These were discussed with the patient personally. Patient voices understanding and wishes to proceed. Some of the risks and complications were included in a form from the [employer]. Potential risks and complications included but not inclusive of bleeding, infection seroma, hematoma, bruising, swelling, prolonged need for drains, loss of sensation to skin, partial or complete loss of skin flap, wound breakdown, need for wound care, poor scarring, poor aesthetic outcome, intra operative cardiac or neurologic events, DVT, PE, and reaction to anesthesia. IV Fluids - 3350 ml. Urine Output - 350 ml. I used Darrion absorbable hemostat, (I used 2 vials). Reference Number - [id number]. Lot Number - [id number]. Expiration - December 22, 2025. Surgeon: Yamil Cao family and marriage counsellor: Gerry Espinoza Type of Anesthesia: General Specimen's removed: Excess skin and subcutaneous tissue right arm,axilla, and lateral chest wall to Pathology. Drains: Last. Estimated Blood Loss (mL): 50. Fluids Replaced: 3700 ml (IV Fluids 3350 ml, Urine Output 350 ml). Description of Procedure: Preoperatively, markings were made on the right arm with the arm abducted and the elbow bent at 90 degrees. The bicipital groove was marked. Then demario a horizontal ellipse with a few cm above the line and several cm below the line to encompass the redundant tissue. The markings extended to the axilla and travelled inferiorly to tighten some redundant tissue on the lateral chest wall and axilla. Distally I stopped the marking just before the medial epicondyle. Patient was taken to OR in supine position and was placed under general anesthesia. The right arm, axilla, and lateral chest wall areas were prepped and draped in the usual fashion. SCD's were placed for DVT prophylaxis. Perioperative antibiotics were given intravenously. A gooden catheter was placed. Using xylocaine with epinephrine, the markings were infiltrated. After waiting 5 minutes for the anesthetic to take effect, I made a horizontal incision in the bicipital groove through the subcutaneous tissue until the muscular fascia seen. Will dissect the subcutaneous tissue in the deep plane. Continuing the dissection distally toward the elbow, will dissect more superficially to look for the basilic vein which is the landmark to protect the medial antebrachial cutaneous nerve. I dissected the medial aspect and posterior aspect of the arm. I advanced the excess skin flap superiorly and marked where it meets the superior skin edge. I the excess skin flap into four sections to make sure enough is taken out for each section. The skin was then temporarily closed with surgical clips. I extended the incision in the axilla in the posterior aspect of the axilla and turned the incision inferiorly to accommodate the loose skin and subcutaneous tissue in the lateral chest wall and axilla. The deeper subcutaneous tissue was excised. I temporarily closed the axillary and lateral chest wall incisions with surgical clips. I elevated the right arm and there was no evidence of increased tension in the area of the axilla. The tissue excised was sent to Pathology for analysis to rule out carcinoma. The wound was irrigated with Irrisept 0.05% chlorhexidine solution (125 ml). This was followed by saline irrigation. Hemostasis was obtained with electrocautery. I sprayed Darrion absorbable hemostat in the wound to minimize seroma formation. I used 2 vials. I placed a size 15 Last drain through a separate stab incision inferiorly on the lateral chest wall and secured to the skin with 3-0 Nylon suture. I closed the wound in multiple layers with 2-0 Vicryl figure of eight suture for the underlying fascial layer. The deep dermis and subcutaneous tissue was approximated with 3-0 Monocryl interrupted sutures. The skin was approximated with 4-0 Prolene simple interrupted and vertical mattress interrupted sutures. Good contour of the arm was noted. No vascular compromise noted on the skin flap. Antibiotic ointment was applied to the suture line followed Kerlix gauze and marcos wrap compression. Patient tolerated the procedure well and was sent to PACU in satisfactory condition. Patient will be sent upstairs for continued postop care. Will discharge her when she is tolerating po analgesia. The drain will be pulled in the office in 10-14 days. Grafts/Implants Used: Darrion Complications None. Admit VTE Documentation VTE Present on Admission: No VTE Mechan Device Prophylaxis: SCD's VTE Pharm Prophylaxis ordered?: Yes Addendum Addendum: Surgery Charges CPT - 34218 ICD-10 - L98.7, L57.4, L30.4, E65, R63.4, Z98.84
[2021-04-10] MEDS: Neomycin/Bacitracin/Polymyxin Opth. Ointment 1 APPLIC RIGHT EYE ×2 (17:13→21:53)
--- NOTE | 2021-04-10 20:04 | CPS ---
set up pt home cpap unit-added distilled water
[2021-04-10] MEDS: oxyCODONE 5 MG Tablet PO (20:11)
[2021-04-10] MEDS: Ensure Surgery 237 ML LIQUID PO (21:51)
[2021-04-10] MEDS: Acetaminophen 500 MG Tablet 1000 MG PO (21:52)
[2021-04-10] MEDS: Gabapentin 100 MG Capsule 200 MG PO (21:52)
[2021-04-10] MEDS: Docusate Sodium 100 MG Capsule PO (21:53)
[2021-04-11 05:24] VITALS: BP 97/49; PULSE 77; RESP 18; TEMP 36.8; O2SAT 97
[2021-04-11] MEDS: 0.9% Saline Lock 10 ML Syringe IV (05:32)
[2021-04-11] MEDS: Acetaminophen 500 MG Tablet 1000 MG PO ×2 (05:32→11:54)
[2021-04-11] MEDS: HYDROmorphone 1 MG/ML Syringe IV (05:33)
[2021-04-11 06:00] LABS: Hematocrit 32.1 % (37-47); Hemoglobin 10.8 g/dL (12.0-15.0); Mean Corp Hgb Conc 33.6 g/dL (32-36); Mean Corpuscular Hgb 31.7 pg (27.0-32.0); Mean Corpuscular Volume 94.1 fL (81-99); Mean Platelet Vol. 10.2 fl (6.2-12.0); Platelet Count 269 K/mm3 (150-450); RBC Distribution Width CV 12.7 % (11.6-14.6); RBC Distribution Width SD 44.1 fl (35.1-43.9); Red Blood Count 3.41 M/mm3 (4.2-5.4); White Blood Count 8.7 K/mm3 (4.4-11.0)
[2021-04-11 06:41] LABS: Anion Gap 5 (5-15); BUN 12 mg/dL (7-18); BUN/Creat Ratio 21.3 RATIO (10-20); Calcium,Total 8.4 mg/dL (8.5-10.1); Chloride 109 mmol/L (98-107); Creatinine, Serum 0.56 mg/dL (0.55-1.02); EST Glomerular Filtration Rate 119 mL/min (>60); Est Glom Filt Rate - Afr Amer 144 mL/min (>60); Glucose 110 mg/dL (74-106); Potassium 4.3 mmol/L (3.5-5.1); Prealbumin 19.4 mg/dL (20.0-40.0); Sodium Level 140 mmol/L (136-145)
[2021-04-11 09:26] VITALS: BP 108/49; PULSE 89; RESP 18; TEMP 36.8; O2SAT 98
--- NOTE | 2021-04-11 09:58 | NURSING ---
spouse at bedside
[2021-04-11] MEDS: Gabapentin 100 MG Capsule 200 MG PO ×2 (09:59→11:54)
[2021-04-11] MEDS: Enoxaparin 40 MG/0.4 ML Syringe SC (09:59)
[2021-04-11] MEDS: Docusate Sodium 100 MG Capsule PO (09:59)
--- NOTE | 2021-04-11 10:15 | CASEMGMT ---
OSVALDO SOLOMON Assessment: Face to Face with pt for initial transition planning/care coordination assessment. RN NEHA introduced self and role at [facility], pt voices understanding and consents to assessment. Pt is A/O x4 and answers all questions appropriately at this time. at bedside. Care providers, pharmacy, and demographics verified/updated. Admitting Dx: Rt Brachioplasty, power assisted lip suction PCP:Jose Angel Specialists:Nash, surgeon; Cornel, gastric bypass Preferred Pharmacy: [facility] Retail Insurance: [place] Prescription Benefit: yes LW/HPOA: Pt denies having a LW/DPOA and denies need for info regarding AD. LNOK: Stu Wing, ; Erin Gresham, dtr Living Arrangements: Pt lives with in a two story house with no steps to enter if enter through garage. Pt reports she is I in ADL's and denies concerns at home. She states her can assist her while she cannot use her right arm. Transportation: Pt drives self and denies concerns with transportation. is able to assist with transportation as well. DME/HHC/SNF: Pt has a cane and walker at home but does not use. Pt has had HHC years ago and cannot remember who this was through. She denies SNF stays. Pt states no concerns with going home at time of dc. She denies need for HHC. Pt has had drains in the past and denies need for education on them or s/s infection to report. Pt states no further concerns/needs. CM to follow. Advised pt to ask CM if any further question/concerns/needs arise, voices understanding. Pt Goal: Home Plan: Home
[2021-04-11] MEDS: oxyCODONE 5 MG Tablet PO (11:53)
[2021-04-11 12:05] VITALS: BP 96/60; PULSE 70; RESP 18; TEMP 36.7; O2SAT 95
--- NOTE | 2021-04-11 14:42 | PN.SURG_ITS ---
Subjective Subjective Postop #1 Patient sitting up in chair. She states that her pain is controlled. Objective Data Objective Data Vital Signs: Vital Signs Temp Pulse Resp BP Pulse Ox 98.1 F 70 18 96/60 95 04/11/21 12:05 04/11/21 12:05 04/11/21 12:05 04/11/21 12:05 04/11/21 12:05 Oxygen Flow Rate (L/min) 1 Oxygen Delivery Method Room Air Weight: 235 lb 14.314 oz Body Mass Index (BMI) 41.8 Intake & Output: Intake and Output for Last 24 Hours 04/09/21 04/10/21 04/11/21 23:59 23:59 23:59 Intake Total 3570 / 3570 733 / 733 Output Total 540 / 540 2280 / 2280 Balance 3030 / 3030 -1547 / -1547 Lab / Micro Data Result Diagrams: 04/11/21 05:20 04/11/21 05:20 Labs: Laboratory Results - last 24 hr 04/11/21 05:20: WBC 8.7, RBC 3.41 L, Hgb 10.8 L, Hct 32.1 L, MCV 94.1, MCH 31.7, MCHC 33.6, RDW Std Deviation 44.1 H, RDW Coeff of Heather 12.7, Plt Count 269, MPV 10.2 04/11/21 05:20: Sodium 140, Potassium 4.3, Chloride 109 H, Carbon Dioxide 26.0, Anion Gap 5, BUN 12, Creatinine 0.56, Estim Creat Clear Calc 93.90, Est GFR (MDRD) Af Amer 144, Est GFR (MDRD) Non-Af 119, BUN/Creatinine Ratio 21.3 H, Glucose 110 H, Calcium 8.4 L, Prealbumin 19.4 L Micro: Microbiology 04/07/21 09:10 Interface Orders SARS-CoV-2 Antigen (Rapid) - Final Assessment & Plan Assessment/Plan (1) Excessive and redundant skin and subcutaneous tissue: (2) Skin laxity: (3) Intertrigo: (4) History of gastric bypass: (5) Abdominal panniculus: (6) Excessive weight loss: (7) Other acute postprocedural pain: PLAN: Patient sitting in her chair eating lunch. She states she is feeling ok. Operative dressing removed without difficulty. Incision and sutures are dry and intact. Last drain is intact. She has had 40 ml out yesterday and 80 ml out so far today. Dressed incision with ABD pads with Kerlix and topped with CLAU wrap on right arm and large CLAU wrap around her breasts to compress her right side. Instructed patient of the importance of wearing compression and how to measure Last drain output. She can change the dressing every other day and as needed at home. Keep area dry until the drain comes out. She will have a 15-20 lb weight lifting restriction. Patient states that her pain is controlled but is not able to take Percocet b ecause it makes her feel funny. Will prescribe Dilaudid for pain as needed (40 tabs). Discussed this decision with Dr. Cao. Order Valium (14 tabs) for muscle spasms. Doxycycline until her Last drain is removed. She has history of constipation so will order Miralax daily to help prevent constipation. She will follow up in the office on Saturday. She will call for an appointment [phone].
--- NOTE | 2021-04-11 14:43 | DCINST_ITS ---
Discharge Instructions Diet Discharge Diet: No restrictions Activity Discharge Activity: May Not Shower May resume sexual activity in: 10-14 days Lifting Restrictions: 15-20 lb Keep extremity elevated above heart level: Operative Extremity Dressing / Incision Call your doctor if your incision/area has: Continuous Slow Oozing, Sudden Increased Bleeding, Increased Pain/ Swelling, Increased Redness, Foul Smelling Discharge and Swelling at the incision site Call your doctor if you observe: Fever of 101 or Higher, Coldness, Increased Pain, Inability to have a bowel movement, Chest pain, Calf discomfort and Uncontrolled pain Change Dressing in: 2 days Cleanse incision/area with: Soap & Water and Do not get Incision Wet Drain: Suction Additional Dressing/Incision Instructions:: Do not get drain insertion site wet. Follow Up Care Please Follow Up With: Dr. Cao/Cristal When: Saturday04/14/21, call office for appointment [phone] Test Results: Test results from this visit will be discussed in further detail at your follow-up appointment, if applicable. Discharge Plan Admission Admit Date/Time: 04/10/21 18:15 Attending Provider: Yamil Cao Primary Care Provider: Mookie Walter Discharge Orders/Prescriptions Prescriptions: New doxycycline monohydrate 100 mg tablet 100 mg PO BID 14 Days Qty: 28 RF: 0 polyethylene glycol 3350 [Miralax] 17 gram/dose powder 17 g PO DAILY 14 Days Qty: 238 RF: 1 hydromorphone [Dilaudid] 2 mg tablet 2 mg PO Q4H PRN (Reason: pain (scale score 7-10)) 7 Days Qty: 40 RF: 0 diazepam [Valium] 5 mg tablet 5 mg PO BID PRN (Reason: muscle spasm) 7 Days Qty: 14 RF: 0 No Action Probiotic 3 billion cell capsule 3,000 mmu cells PO DAILY RF: 0 magnesium 30 mg tablet 850 mg PO DAILY RF: 0 omega-3 fatty acids 1,000 mg capsule 1,000 mg PO DAILY RF: 0 pantoprazole 40 mg tablet,delayed release (DR/EC) 40 mg PO DAILY RF: 0 multivitamin 1 EACH tablet 1 ea PO DAILY RF: 0 Transfer Factor 2 - 3 cap PO BID RF: 0 Other Ambulatory Orders: CBC-Complete Blood Cnt No Diff (Routine) Timeframe: [id number] Facility: [facility] - Location: Laboratory Ordered By: Dr. Tonny Rico Referrals / Follow Up: Mookie Walter MD [Primary Care Provider] - Disposition Disposition (needs filled in before D/C Order can be placed): Home, Self Care
--- NOTE | 2021-04-11 15:15 | NURSING ---
Student charting reviewed by OSVALDO Huerta, instructor.
[2021-04-11 15:49] VITALS: BP 96/49; PULSE 71; RESP 18; TEMP 36.4; O2SAT 96
[2021-04-11 15:51] VITALS: BP 98/58; PULSE 88; RESP 16; TEMP 36.8; O2SAT 99
[2021-04-14 13:16] LABS: Vitamin A, Retinol 50.8 ug/dL (20.1-62.0)
== END 2021-04-11 16:35 | disposition home or self-care (01) ==
LOC: SDC 18:15 → MS3 18:15
PROVIDERS: Admitting Provider Surgery; PCP Family Medicine; Referring Provider Surgery; Visit Provider Surgery
PROC: (CPT 15836; principal; 2021-04-10 10:15)
DX: L98.7 Excessive and redundant skin and subcutaneous tissue (principal); Z68.41 Body mass index [BMI] 40.0-44.9, adult; E65 Localized adiposity; Z98.84 Bariatric surgery status; L30.4 Erythema intertrigo; K21.9 Gastro-esophageal reflux disease without esophagitis; E66.9 Obesity, unspecified; N32.81 Overactive bladder; Z79.899 Other long term (current) drug therapy
CPT/HCPCS: 15836; 00400; 36415; 80048; 80053; 82306; 82607; 82728; 82746; 84134; 84550; 84590; 85027; 85610; 85730; 87426; 88304; 88305; 94762; 96365; 96366; 96372; 96375; 99218; 99251; C9803; J7030; J7120; A4216; G0378; G0463; J2405

== ENCOUNTER 2021-04-24 09:53 | Outpatient (CLI) | payer BC, SELFPAY ==
--- NOTE | 2021-04-24 09:55 | RAD_ITS ---
EXAM: XR ABDOMEN, 2 VIEWS AND XR CHEST, 1 VIEW CLINICAL INDICATION: rule out constipation/gas pattern TECHNIQUE: Frontal view of the chest, frontal view of the abdomen/pelvis and upright or decubitus view of the abdomen. This report was created using [employer] report generation technology. COMPARISON: None. FINDINGS: CHEST: LUNGS AND PLEURAL SPACES: Unremarkable. No consolidation or edema. No pneumothorax. No effusion. HEART: Unremarkable. Cardiac silhouette not enlarged. MEDIASTINUM: Central airways and mediastinal contour are unremarkable. ABDOMEN: INTRAPERITONEAL SPACE: No free air. GASTROINTESTINAL TRACT: Stool throughout the colon. Non-obstructive. No bowel or stomach distention. ORGANS: Unremarkable as visualized. No organomegaly. No abnormal calcifications. TUBES, LINES AND DEVICES: None. BONES/JOINTS: Scoliosis of the thoracic spine. SOFT TISSUES: No acute findings. VASCULATURE: There are thoracic aortic calcifications consistent for atherosclerotic disease. RAD/Acute Abdomen Inc Chest IMPRESSION: Stool throughout the colon. Electronically Signed: Greg Lemos MD at 17:18 EST ,
== END 2021-04-24 23:59 | disposition home or self-care (01) ==
LOC: MTRAD 09:54
PROVIDERS: PCP Family Medicine; Referring Provider Nurse Practitioner Family; Visit Provider Nurse Practitioner Family
DX: R10.9 Unspecified abdominal pain (principal)
CPT/HCPCS: 74022

== ENCOUNTER 2021-04-27 13:15 | Outpatient (CLI) | payer BC, SELFPAY ==
--- NOTE | 2021-04-27 13:22 | VDUE_ITS ---
Reason For Study: swelling Right Proximal Right jugular vein is spontaneous, widely patent, phasic, with no intraluminal echogenicity noted. Right subclavian vein is spontaneous, widely patent, phasic, with no intraluminal echogenicity noted. Right Lower Arm Right radial vein is compressible. Right ulnar vein is compressible. Right Arm Right axillary vein is spontaneous, patent, phasic, competent, compressible and demonstrates augmentation. Right brachial vein is compressible. Right cephalic vein is compressible. Right basilic vein is compressible. VL/Venous Duplex US, Unilateral Interpretation Summary Deep veins of the right upper extremity are patent and compressible segmentally . There is no evidence of deep vein thrombosis. The superficial veins of the right upper extr emity, the basilic and cephalic veins, are patent and compressible. There is no evidence of right upper extremity superficial thrombophlebitis involving the veins imaged. Ordering Physician: Cristal Cobb Performed By: Kwame Caban RVT ?
== END 2021-04-27 23:59 | disposition home or self-care (01) ==
PROVIDERS: PCP Family Medicine; Referring Provider Nurse Practitioner Family; Visit Provider Nurse Practitioner Family
DX: M79.89 Other specified soft tissue disorders (principal); M79.601 Pain in right arm; Z98.890 Other specified postprocedural states
CPT/HCPCS: 93971

== ENCOUNTER 2021-05-16 14:35 | Outpatient (CLI) | payer BC, SELFPAY | END 2021-05-16 23:59 | disposition home or self-care (01) | LOC: LAB 14:38 | PROVIDERS: PCP Family Medicine; Referring Provider Nurse Practitioner Family; Visit Provider Nurse Practitioner Family | DX: T81.89XA Other complications of procedures, not elsewhere classified, initial encounter (principal) | CPT/HCPCS: 87070; 87075; 87077; 87186; 87205 ==

== ENCOUNTER 2021-05-31 15:39 | Outpatient (CLI) | payer BC, SELFPAY | END 2021-05-31 23:59 | disposition home or self-care (01) | PROVIDERS: PCP Family Medicine; Visit Provider Internal Medicine Cardiovascular Disease | DX: I25.10 Atherosclerotic heart disease of native coronary artery without angina pectoris (principal) | CPT/HCPCS: 80048 ==

== ENCOUNTER 2021-06-13 11:08 | Outpatient (CLI) | payer BC, SELFPAY ==
[2021-06-13 14:14] LABS: Anion Gap 4 (5-15); BUN 20 mg/dL (7-18); Chloride 110 mmol/L (98-107); Cholesterol 167 mg/dL (200); Creatinine, Serum 0.61 mg/dL (0.55-1.02); EST Glomerular Filtration Rate 109 mL/min (>60); Est Glom Filt Rate - Afr Amer 132 mL/min (>60); Glucose 84 mg/dL (74-106); High Density Lipoprotein 65 mg/dL; Potassium 4.3 mmol/L (3.5-5.1); Sodium Level 140 mmol/L (136-145); Triglycerides 58 mg/dL; Very Low Density Lipoprotein 12 mg/dL (5-40)
== END 2021-06-13 23:59 | disposition home or self-care (01) ==
PROVIDERS: PCP Family Medicine; Referring Provider Nurse Practitioner Family; Visit Provider Internal Medicine Cardiovascular Disease
DX: Z00.00 Encounter for general adult medical examination without abnormal findings (principal); I25.10 Atherosclerotic heart disease of native coronary artery without angina pectoris
CPT/HCPCS: 36415; 80048; 80061

== ENCOUNTER → 2021-06-30 | Outpatient (CLI) | payer BC, SELFPAY ==
--- NOTE | 2021-06-30 10:09 | ECHOD_ITS ---
Reason For Study: CAD/ASHD Procedure This was a 2D Doppler, Color Flow transthoracic echocardiogram. Exam performed in department. Left Ventricle Normal LV size. Left ventricular systolic function is normal. Stage 2 diastolic dysfunction. The estimated ejection fraction is 60 %. No regional wall motion abnormalities noted. Right Ventricle Normal RV size. Normal systolic function. Atria Normal left atrium. Normal right atrium. Mitral Valve Normal mitral valve. Mild (1+) eccentric mitral valve insufficiency. Tricuspid Valve Normal tricuspid valve. Mild (1+) tricuspid valve insufficiency. Pulmonary artery systolic pressure is 24 mmHg. Aortic Valve Normal aortic valve. Trisinus/trileaflet aortic valve. Pulmonic Valve Normal pulmonic valve. Great Vessels Normal aortic root. The pulmonary artery is normal size. Normal inferior vena cava. Pericardium/Pleural No pericardial effusion. MMode/2D Measurements & Calculations LVIDd: 4.5 cm IVSd: 0.88 cm Ao root diam: 3.1 cm LVIDs: 2.7 cm LVPWd: 0.81 cm LA dimension: 3.8 cm RVDd: 3.2 cm FS: 41.0 % LAV(MOD-bp): 49.1 ml LA A4 area: 19.0 cm2 RA A4 area: 13.6 cm2 LAV(MOD-bp) Indexed: 23.6 ml/m2 LAV(MOD-sp2): 44.0 ml LAV(MOD-sp4): 55.1 ml Time Measurements MV dec time: 0.25 sec Doppler Measurements & Calculations MV E max jonathan: 112.2 cm/sec Lat Peak E' Jonathan: 10.3 cm/sec Med Peak E' Jonathan: 8.6 cm/sec MV A max jonathan: 111.3 cm/sec E/E' lat: 10.9 E/E' med: 13.0 MV E/A: 1.0 MV V2 max: 128.8 cm/sec MV P1/2t max jonathan: 128.8 cm/sec Ao V2 max: 160.5 cm/sec MV max P.6 mmHg MV P1/2t: 97.6 msec Ao max P.3 mmHg MV V2 mean: 74.4 cm/sec MV dec slope: 386.3 cm/sec2 MV mean P.6 mmHg MVA(P1/2t): 2.3 cm2 MV V2 VTI: 43.4 cm LV V1 max: 142.9 cm/sec MR max jonathan: 486.2 cm/sec PA V2 max: 116.5 cm/sec LV V1 max P.2 mmHg MR max P.5 mmHg MR mean jonathan: 402.1 cm/sec MR mean P.2 mmHg MR VTI: 182.9 cm TR max jonathan: 225.6 cm/sec TR max P.4 mmHg ECHO/Echo Complete Interpretation Summary Normal LV size. Left ventricular systolic function is normal. Stage 2 diastolic dysfunction. Pulmonary artery systolic pressure is 24 mmHg. The estimated ejection fraction is 60 %. Ordering Physician: Flakito Enciso Referring Physician: Adan Walter Performed By: Otto Rolon RCS
--- NOTE | 2021-06-30 15:17 | STRESSREP ---
Stress Test Report Exercise stress test. 56-year-old lady with a history of chest pain. Stress protocol: Rest EKG demonstrates normal sinus rhythm with a rate of 60 bpm normal intervals are noted resting blood pressure is 122/76 mmHg. Patient exercised according to regular Woo protocol for total duration of 7 minutes completing 1 minute into stage III of the Woo protocol the maximum heart rate attained was 146 bpm which was 88% of max impact at heart rate the maximum workload was 10.1 metabolic equivalents. At rest there were no ST or T wave changes noted suggest ischemia and at peak exercise upsloping ST changes were noted with did not meet the criteria for ischemia. No clinical angina was noted the test was terminated due to leg fatigue there was good blood pressure response to exercise. No arrhythmias were noted. Conclusion: Exercise stress test with no EKG criteria for ischemia at a high workload. No clinical angina noted.
== END | disposition home or self-care (01) ==
LOC: CVS 10:08
PROVIDERS: PCP Family Medicine; Referring Provider Internal Medicine Cardiovascular Disease; Visit Provider Internal Medicine Cardiovascular Disease
DX: I25.10 Atherosclerotic heart disease of native coronary artery without angina pectoris (principal)
CPT/HCPCS: 93017; 93306

== ENCOUNTER → 2022-06-06 | Outpatient (CLI) | payer BC, SELFPAY ==
[2022-06-06 12:46] LABS: Hemoglobin 12.5 g/dL (12.0-15.0); Mean Corp Hgb Conc 32.1 g/dL (32-36); Mean Corpuscular Hgb 30.8 pg (27.0-32.0); Mean Corpuscular Volume 96.1 fL (81-99); Mean Platelet Vol. 10.8 fl (6.2-12.0); Platelet Count 290 K/mm3 (150-450); RBC Distribution Width CV 12.7 % (11.6-14.6); RBC Distribution Width SD 44.9 fl (35.1-43.9); Red Blood Count 4.06 M/mm3 (4.2-5.4); White Blood Count 5.4 K/mm3 (4.4-11.0)
[2022-06-06 13:25] LABS: Vitamin B12 694 pg/mL (211-911); Vitamin D,25 Hydroxy 37.3 ng/mL
[2022-06-06 13:34] LABS: ALB/GLOB Ratio 1.1 RATIO (0.9-2.4); AST(SGOT) 23 U/L (15-37); Alanine Aminotransfer ALT/SGPT 34 U/L (13-56); Albumin, Serum 3.9 g/dL (3.2-5.0); Alkaline Phosphatase 90 U/L (45-117); Anion Gap 5 (5-15); BUN 22 mg/dL (7-18); Calcium,Total 9.1 mg/dL (8.5-10.1); Chloride 112 mmol/L (98-107); Cholesterol 165 mg/dL (200); Creatinine, Serum 0.63 mg/dL (0.55-1.02); EST Glomerular Filtration Rate 104 mL/min (>60); Est Glom Filt Rate - Afr Amer 126 mL/min (>60); Ferritin 24 ng/mL (8-252); Globulin 3.7 g/dL (2.2-4.2); Glucose 103 mg/dL (74-106); High Density Lipoprotein 62 mg/dL; Iron 114 ug/dL (50-170); Potassium 3.9 mmol/L (3.5-5.1); Protein, Total 7.6 g/dL (6.4-8.2); Sodium Level 138 mmol/L (136-145); Triglycerides 65 mg/dL; Very Low Density Lipoprotein 13 mg/dL (5-40)
== END | disposition home or self-care (01) ==
LOC: MFPLAB 09:54
PROVIDERS: PCP Family Medicine; Referring Provider Family Medicine; Visit Provider Family Medicine
DX: Z98.84 Bariatric surgery status (principal); R73.02 Impaired glucose tolerance (oral)
CPT/HCPCS: 36415; 80053; 80061; 82306; 82607; 82728; 83540; 84443; 85027

== ENCOUNTER → 2022-06-23 | Outpatient (CLI) | payer BC, SELFPAY ==
[2022-06-23 09:46] LABS: Mucous, Urine 0 SEEN /hpf (<or=2+); Red Blood Cells-Urine 0 SEEN /hpf (0-5); White Blood Cells 0 SEEN /hpf (0-5)
[2022-06-23 10:30] LABS: Color, Urine Yellow (Yellow); Glucose, Dipstick Normal (Normal); Ketone-Dipstick Negative (Negative); Leukocyte Esterase-Dipstick Negative /ul (Negative); Nitrite-Dipstick Negative (Negative); Occult Blood-Urine Negative /ul (Negative); Protein-Dipstick Negative (Negative); Specific Gravity, Urine 1.015 (1.002-1.030); Urine Bilirubin Dipstick Negative (Negative); Urine Clarity Clear (Clear); Urine Urobilinogen Normal (Normal)
[2022-06-23 11:04] LABS: Erythrocyte Sedimentation Rate 14 mm/hr (0-30)
[2022-06-23 12:25] LABS: Bacteria 1+ /hpf (None Seen); Squamous Epithelial Cells - UA 0-5 SEEN /hpf (5-10)
[2022-06-24 09:07] LABS: Hepatitis A AB, Total Negative (Negative)
[2022-06-25 08:53] LABS: Hepatitis B Surface Antigen Non-Reactive (Nonreactive); Hepatitis C Antibody Non-Reactive (Nonreactive)
[2022-06-26 10:08] LABS: Anti-Nuclear Antibody Test Negative (.)
== END | disposition home or self-care (01) ==
LOC: LAB 09:34
PROVIDERS: PCP Family Medicine; Referring Provider Physician Assistant Medical; Visit Provider Physician Assistant Medical
DX: M31.0 Hypersensitivity angiitis (principal)
CPT/HCPCS: 36415; 81001; 85652; 86038; 86708; 86803; 87340

== ENCOUNTER 2023-07-20 05:27 | Emergency (ER) | payer BC, SELFPAY ==
[2023-07-20 05:28] VITALS: PULSE 60; RESP 20; TEMP 36.8; O2SAT 98; BMI 44.4
--- NOTE | 2023-07-20 05:48 | EKG12_ITS ---
Test Reason : ABD PAIN Blood Pressure : / mmHG Vent. Rate : 054 BPM Atrial Rate : 054 BPM P-R Int : 150 ms QRS Dur : 076 ms QT Int : 414 ms P-R-T Axes : 030 000 022 degrees QTc Int : 392 ms Sinus bradycardia Otherwise normal ECG Confirmed by Camilo Fatima ([id number]), supervising film or videotape editor ANKIT CLARK ([id number]) on 07/22/2023 8:15:42 AM Referred By: Confirmed By:Camilo Fatima
[2023-07-20] MEDS: 0.9% Normal Saline (1000mL) 1,000 ML 999 ML IV (06:00)
[2023-07-20] MEDS: Mag Hydrox/Al Hydrox/Simeth 30 ML UDC PO (06:01)
[2023-07-20] MEDS: Famotidine 200 MG/20 ML MDV 20 MG in 0.9% Normal Saline (Pres. free 8 ML 300 MG IV (06:07)
[2023-07-20 06:09] LABS: Absolute Lymphocyte Count 2.64 X10^3/uL (0.83-4.51); Absolute Neutrophil Count 4.7 X10^3/uL (2.0-7.7); Basophil# 0.03 X10^3/uL; Basophil% 0.4 % (0-1); Eosinophil# 0.05 X10^3/uL; Eosinophils% 0.6 % (0-5); Hematocrit 39.3 % (37-47); Hemoglobin 12.9 g/dL (12.0-15.0); Lymphocyte # 2.64 X10^3/ul (0.83-4.51); Lymphocyte % 32.7 % (19-41); Mean Corp Hgb Conc 32.8 g/dL (32-36); Mean Corpuscular Hgb 30.4 pg (27.0-32.0); Mean Corpuscular Volume 92.7 fL (81-99); Mean Platelet Vol. 10.6 fl (6.2-12.0); Monocyte% 7.4 % (0-10); NRBC Flagged by Analyzer 0 % (0-5); Neutrophil # 4.71 X10^3/uL (2.7-7.7); Neutrophil % 58.3 % (47-70); Platelet Count 280 K/mm3 (150-450); RBC Distribution Width CV 13.2 % (11.6-14.6); RBC Distribution Width SD 44.6 fl (35.1-43.9); Red Blood Count 4.24 M/mm3 (4.2-5.4); White Blood Count 8.1 K/mm3 (4.4-11.0)
--- NOTE | 2023-07-20 06:25 | RAD_ITS ---
EXAM: XR ABDOMEN, 2 VIEWS AND XR CHEST, 1 VIEW CLINICAL INDICATION: belly pain TECHNIQUE: Frontal view of the chest, frontal view of the abdomen/pelvis and upright or decubitus view of the abdomen. COMPARISON: 04/24/2021. FINDINGS: CHEST: LUNGS AND PLEURAL SPACES: Unremarkable. No consolidation or edema. No pneumothorax. No effusion. HEART: Unremarkable. Cardiac silhouette not enlarged. MEDIASTINUM: Central airways and mediastinal contour are unremarkable. ABDOMEN: INTRAPERITONEAL SPACE: No free air. GASTROINTESTINAL TRACT: Unremarkable. Non-obstructive. No bowel or stomach distention. ORGANS: Unremarkable as visualized. No organomegaly. No abnormal calcifications. TUBES, LINES AND DEVICES: None. BONES/JOINTS: Mild dextroscoliosis. SOFT TISSUES: No acute findings. RAD/Acute Abdomen Inc Chest IMPRESSION: No specific acute abdominal abnormality identified. Normal chest. Electronically Signed: Camilo Jason MD at 7:42 EDT ,
[2023-07-20 06:32] VITALS: BP 162/87; PULSE 59; RESP 18; TEMP 36.2; O2SAT 97
[2023-07-20 06:32] LABS: AST(SGOT) 45 U/L (15-37); Alanine Aminotransfer ALT/SGPT 97 U/L (13-56); Albumin, Serum 3.8 g/dL (3.2-5.0); Alkaline Phosphatase 92 U/L (45-117); Anion Gap 8 (5-15); BUN 28 mg/dL (7-18); BUN/Creat Ratio 39.5 RATIO (10-20); Calcium,Total 9.1 mg/dL (8.5-10.1); Chloride 112 mmol/L (98-107); Creatinine, Serum 0.71 mg/dL (0.55-1.02); EST Glomerular Filtration Rate 90 mL/min (>60); Est Glom Filt Rate - Afr Amer 109 mL/min (>60); Globulin 3.5 g/dL (2.2-4.2); Glucose 118 mg/dL (74-106); Lipase 76 U/L (13-75); Protein, Total 7.3 g/dL (6.4-8.2); Sodium Level 141 mmol/L (136-145); Troponin-I HS 4 pg/mL (3.0-54.0)
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
[2023-07-20] MEDS: Pregabalin 50 MG Capsule PO (07:25)
[2023-07-20] MEDS: Orphenadrine 60 MG/2 ML Ampul IV (07:28)
[2023-07-20 07:33] VITALS: BP 155/95; PULSE 57; PULSE 59; RESP 18; TEMP 36.7; O2SAT 99
[2023-07-20 07:49] LABS: D-Dimer Quantitative (DVT/PE) 1.48 FEU/ug/m (0.27-0.49)
--- NOTE | 2023-07-20 07:56 | CT_ITS ---
EXAM: CT ANGIOGRAPHY CHEST WITHOUT AND WITH INTRAVENOUS CONTRAST CLINICAL INDICATION: elevated d-dimer w/ atypical pain TECHNIQUE: Helically acquired angiography images were obtained of the chest without and with intravenous contrast. This CT exam was performed using one or more of the following dose reduction techniques: automated exposure control, adjustment of the mA and/or kV according to patient size, and/or use of iterative reconstruction technique. MIP reconstructed images were created and reviewed. CONTRAST: IV 100mL [id number] COMPARISON: No relevant prior studies available. FINDINGS: PULMONARY ARTERIES: Normal. Normal in caliber. No evidence of pulmonary embolism. AORTA: Normal. Normal in caliber. No evidence of dissection. GREAT VESSELS OF AORTIC ARCH: Normal. Normal in caliber. No evidence of dissection. LUNGS AND PLEURAL SPACES: Normal. No mass. No consolidation or edema. No pleural effusion or thickening. No pneumothorax. HEART: Normal. Heart size is normal. No pericardial effusion. No significant coronary artery calcifications. MEDIASTINUM: Normal. No mediastinal or hilar adenopathy. Esophagus is unremarkable. No hiatal hernia. BONES/JOINTS: Normal. No suspicious lytic or blastic abnormality. STOMACH AND BOWEL: Surgical changes of Feliz-en-Y gastric bypass. CT/CTA Chest W/WO Contrast IMPRESSION: No acute cardiopulmonary abnormality. Electronically Signed: Simon Fuentes MD at 8:59 EDT Reading Location ID and State: [facility] / ID Tel , Service support ,
[2023-07-20 08:00] VITALS: BP 158/93; PULSE 158; RESP 48; TEMP 36.6; O2SAT 97
[2023-07-20 09:00] VITALS: BP 173/100; PULSE 54; RESP 18; TEMP 36.7; O2SAT 97
[2023-07-20 09:44] VITALS: BP 155/89; PULSE 56; RESP 18; TEMP 36.8; O2SAT 100
== END 2023-07-20 09:44 | disposition home or self-care (01) ==
PROVIDERS: Emergency Provider Emergency Medicine; PCP Family Medicine; Visit Provider Emergency Medicine
DX: R10.10 Upper abdominal pain, unspecified (principal); E66.9 Obesity, unspecified; G47.30 Sleep apnea, unspecified; Z99.89 Dependence on other enabling machines and devices; K21.9 Gastro-esophageal reflux disease without esophagitis; Z79.899 Other long term (current) drug therapy; Z90.710 Acquired absence of both cervix and uterus
CPT/HCPCS: 71275; 74022; 80048; 80076; 83690; 84484; 85025; 85379; 93005; 96361; 96374; 96375; 99282; J7030; Q9967; A4216; J3490

== ENCOUNTER → 2024-07-01 | Outpatient (CLI) | payer BC, SELFPAY ==
--- NOTE | 2024-07-01 13:09 | VDLE_ITS ---
Reason For Study Reason For Study: RLE Swelling RIGHT LEFT GSV is normal. FV is compressible, spontaneous, phasic, competent CFV is compressible, spontaneous, phasic, competent and demonstrates normal augmentation. and demonstrates normal augmentation. FV is compressible, spontaneous, phasic, competent and demonstrates normal augmentation. POP V is compressible, spontaneous, phasic, competent and demonstrates normal augmentation. T/P Trunk is compressible. PTV is compressible. RT PerV is compressible. Procedure This is a venous duplex using B-mode, color flow and spectral Doppler. Exam performed in department. The exam was diagnostic. A preliminary report was called and/or faxed to [facility]. VL/Venous Duplex US, Unilateral Interpretation Summary Deep veins of the right lower extremity are patent and compressible segmentally . There is no evidence of right lower extremity deep vein thrombosis. The right great saphenous vein appears patent a nd compressible segmentally. Ordering Physician: Live Barry Referring Physician: Adan Walter Performed By: Gold Barton RVT
== END | disposition home or self-care (01) ==
LOC: CVS 13:03
PROVIDERS: PCP Family Medicine; Referring Provider Specialist; Visit Provider Specialist
DX: M79.89 Other specified soft tissue disorders (principal)
CPT/HCPCS: 93971

== ENCOUNTER → 2024-07-02 | Outpatient (CLI) | payer BC, SELFPAY ==
[2024-07-02 13:38] LABS: Erythrocyte Sedimentation Rate 32 mm/hr (0-30)
[2024-07-02 13:40] LABS: Hematocrit 33.6 % (37-47); Mean Corp Hgb Conc 32.7 g/dL (32-36); Mean Corpuscular Hgb 31.3 pg (27.0-32.0); Mean Corpuscular Volume 95.7 fL (81-99); Mean Platelet Vol. 9.8 fl (6.2-12.0); Platelet Count 456 K/mm3 (150-450); RBC Distribution Width CV 13.8 % (11.6-14.6); Red Blood Count 3.51 M/mm3 (4.2-5.4); White Blood Count 8.3 K/mm3 (4.4-11.0)
[2024-07-02 14:14] LABS: ALB/GLOB Ratio 1.3 RATIO (0.9-2.4); AST(SGOT) 28 U/L (<=31); Alanine Aminotransfer ALT/SGPT 23 U/L (<=34); Albumin, Serum 3.9 g/dL (3.5-5.0); Alkaline Phosphatase 77 U/L (35-104); Anion Gap 13 (5-15); BUN 16 mg/dL (4-19); BUN/Creat Ratio 23.9 RATIO (10-20); Calcium,Total 9.4 mg/dL (7.6-11.0); Carbon Dioxide 22.2 mmol/L (21.0-32.0); Chloride 106 mmol/L (98-108); Creatinine, Serum 0.66 mg/dL (0.70-1.20); EST Glomerular Filtration Rate 101 (>60); Glucose 96 mg/dL (70-99); Magnesium 2.1 mg/dL (1.5-2.2); Potassium 4.2 mmol/L (3.3-5.1); Protein, Total 6.9 g/dL (5.9-8.4); Sodium Level 141 mmol/L (133-145)
== END | disposition home or self-care (01) ==
LOC: MFPLAB 11:26
PROVIDERS: PCP Family Medicine; Referring Provider Family Medicine; Visit Provider Family Medicine
DX: M79.606 Pain in leg, unspecified (principal)
CPT/HCPCS: 36415; 80053; 83735; 84443; 85027; 85652

== ENCOUNTER → 2024-10-19 | Outpatient (CLI) | payer BC, SELFPAY ==
--- NOTE | 2024-10-19 10:02 | US_ITS ---
PROCEDURE: CHEST 10/19/2024 REASON FOR EXAM: ? LIPOMA IN R UPPER BACK TECHNIQUE: Targeted ultrasound of the right upper back area, in area palpable concern. COMPARISON: None. US/Chest IMPRESSION: Following fat echogenicity in the palpable area of concern of the right upper b ack, within the subcutaneous tissues is seen an ovoid structure measured at 5.0 x 6.2 x 1.1 cm. No internal blood flow is seen upon color Doppler evaluation. This finding is most consistent with a subcutaneous lipoma. No free or loculated fluid collection is noted. Reading Location: [place] [id number]
== END | disposition home or self-care (01) ==
LOC: US 10:01
PROVIDERS: PCP Family Medicine; Referring Provider Family Medicine; Visit Provider Family Medicine
DX: D17.1 Benign lipomatous neoplasm of skin and subcutaneous tissue of trunk (principal)
CPT/HCPCS: 76604

== ENCOUNTER → 2024-11-06 | Outpatient (CLI) | payer BC, SELFPAY ==
[2024-11-06 10:50] LABS: Anion Gap 12 (5-15); BUN 14 mg/dL (4-19); BUN/Creat Ratio 18.3 RATIO (10-20); Calcium,Total 9.4 mg/dL (7.6-11.0); Carbon Dioxide 22.1 mmol/L (21.0-32.0); Chloride 107 mmol/L (98-108); Cholesterol 164 mg/dL (<=200); Glucose 82 mg/dL (70-99); Low Density Lipoprotein Calc. 96 mg/dL; Potassium 4.0 mmol/L (3.3-5.1); Triglycerides 54 mg/dL; Very Low Density Lipoprotein 11 mg/dL (5-40); cholesterol:hdl ratio screen 2.88
== END | disposition home or self-care (01) ==
LOC: MFPLAB 09:18
PROVIDERS: Nurse Practitioner Family; PCP Family Medicine; Referring Provider Family Medicine; Visit Provider Family Medicine
DX: Z13.220 Encounter for screening for lipoid disorders (principal); Z13.1 Encounter for screening for diabetes mellitus
CPT/HCPCS: 36415; 80048; 80061